=== PATIENT | female | born 1975 | race Caucasian/White ===

== ENCOUNTER 2017-11-07 18:01 | Emergency (ER) | payer SELFPAY ==
[2017-11-07 18:37] LABS: BILIRUBIN,URINE NEGATIVE (NEG); CLARITY,URINE CLEAR; COLOR,URINE YELLOW; GLUCOSE,URINE NEGATIVE (NEG); NITRITE,URINE NEGATIVE (NEG); PROTEIN,URINE NEGATIVE (NEG-TRACE); UROBILINOGEN,URINE 0.2 mg/dL (0.2 mg/dL)
[2017-11-07] MEDS: IPRATRPIUM/ALBUTEROL 0.5/2.5MG 3 ML NEBU. NEB (18:37)
[2017-11-07 18:43] LABS: BACTERIA,URINE FEW /HPF (0-FEW); RBC,URINE OCC /HPF (0-2); SQUAMOUS EPITHELIAL CELL,UR MOD /LPF
[2017-11-07 18:44] LABS: BARBITURATES NEG (NEG); BENZODIAZEPINES POS (NEG); CANNABINOIDS POS (NEG); COCAINE NEG (NEG); METHADONE NEG (NEG); OPIATES NEG (NEG); PHENCYCLIDINE NEG (NEG)
[2017-11-07 18:45] LABS: AMPHETAMINE/METHAMPHETAMINE NEG (NEG); ETHANOL, URINE NEG (NEG)
[2017-11-07 18:47] LABS: ADD MAN DIFF? NO
[2017-11-07] MEDS: ASPIRIN 325 MG TABLET PO (18:48)
[2017-11-07] MEDS: methylPREDNISolone SOD SUCC PF 125 MG/2 ML VIAL. IV (18:48)
[2017-11-07 18:50] LABS: BASO # 0.1 x10^3/uL (0.0-0.2); BASO % 1 % (0-3); EOS # 0.2 x10^3/uL (0.0-0.7); EOS % 3 % (0-3); HEMOGLOBIN 13.6 g/dL (12.0-15.5); LYMPH # 2.5 x10^3/uL (1.0-4.8); LYMPH % 26 % (24-48); MEAN CORPUSCULAR HEMOGLOBIN 33 pg (25-35); MEAN CORPUSCULAR HGB CONC 35 g/dL (31-37); MEAN CORPUSCULAR VOLUME 94 fL (79-100); MONO # 0.5 x10^3/uL (0.0-1.1); MONO % 6 % (0-9); NEUT % 65 % (31-73); PLATELET COUNT 344 x10^3/uL (140-400); RED BLOOD COUNT 4.14 x10^6/uL (3.50-5.40); RED CELL DISTRIBUTION WIDTH 14.1 % (11.5-14.5); WHITE BLOOD COUNT 9.4 x10^3/uL (4.0-11.0)
[2017-11-07 19:02] LABS: ANION GAP 12 (6-14); BLOOD UREA NITROGEN 14 mg/dL (7-20); BUN/CREATININE RATIO 16 (6-20); CALCIUM 8.5 mg/dL (8.5-10.1); CARBON DIOXIDE 22 mmol/L (21-32); CHLORIDE 103 mmol/L (98-107); CREATININE 0.9 mg/dL (0.6-1.0); GLUCOSE 97 mg/dL (70-99); POTASSIUM 3.8 mmol/L (3.5-5.1); SODIUM 137 mmol/L (136-145)
[2017-11-07] MEDS: HYDROcodone/APAP 10/325 1 TAB TABLET PO (19:05)
[2017-11-07 19:08] LABS: ALBUMIN 3.2 g/dL (3.4-5.0); ALBUMIN/GLOBULIN RATIO 0.9 (1.0-1.7); ALK PHOS 102 U/L (46-116); ALT (SGPT) 19 U/L (14-59); AST (SGOT) 22 U/L (15-37); MAGNESIUM 2.1 mg/dL (1.8-2.4); TOTAL BILIRUBIN 0.3 mg/dL (0.2-1.0); TOTAL PROTEIN 6.8 g/dL (6.4-8.2)
[2017-11-07 19:09] LABS: TROPONINI < 0.017 ng/mL (0.000-0.055)
[2017-11-07 19:15] LABS: THYROID STIM HORMONE (TSH) 1.149 uIU/mL (0.358-3.74)
[2017-11-07 19:16] LABS: CREATINE KINASE 43 U/L (26-192)
[2017-11-07 19:16] LABS: NT-PRO BNP 339 pg/mL (0-124)
[2017-11-07 19:18] LABS: CKMB MASS < 0.5 ng/mL (0.0-3.6)
[2017-11-07] MEDS: diazePAM 5 MG TABLET PO (19:55)
== END 2017-11-07 20:26 | disposition home or self-care (01) ==
LOC: ER 18:01
DX: J20.9 Acute bronchitis, unspecified (principal); F17.200 Nicotine dependence, unspecified, uncomplicated; Z98.51 Tubal ligation status
CPT/HCPCS: 36415; 71045; 80053; 80307; 81001; 82553; 83735; 83880; 84443; 84484; 85025; 87086; 93005; 94640; 96374; 99285-25; J2930; J7620

== ENCOUNTER 2017-11-07 23:40 | Emergency (ER) | payer SELFPAY ==
[2017-11-08 02:08] LABS: BASO % 0 % (0-3); EOS % 0 % (0-3); HEMATOCRIT 39.8 % (36.0-47.0); HEMOGLOBIN 13.7 g/dL (12.0-15.5); LYMPH # 0.9 x10^3/uL (1.0-4.8); LYMPH % 9 % (24-48); MEAN CORPUSCULAR HEMOGLOBIN 32 pg (25-35); MEAN CORPUSCULAR HGB CONC 35 g/dL (31-37); MEAN CORPUSCULAR VOLUME 94 fL (79-100); MONO # 0.1 x10^3/uL (0.0-1.1); MONO % 1 % (0-9); NEUT # 9.6 x10^3uL (1.8-7.7); NEUT % 91 % (31-73); PLATELET COUNT 353 x10^3/uL (140-400); RED BLOOD COUNT 4.23 x10^6/uL (3.50-5.40); RED CELL DISTRIBUTION WIDTH 14.1 % (11.5-14.5); WHITE BLOOD COUNT 10.6 x10^3/uL (4.0-11.0)
[2017-11-08 02:12] LABS: ADD MAN DIFF? YES
[2017-11-08 02:17] LABS: ANION GAP 16 (6-14); BLOOD UREA NITROGEN 13 mg/dL (7-20); BUN/CREATININE RATIO 13 (6-20); CALCIUM 8.9 mg/dL (8.5-10.1); CARBON DIOXIDE 19 mmol/L (21-32); CHLORIDE 100 mmol/L (98-107); GFR 60.2; GLUCOSE 140 mg/dL (70-99); NEG OBC SER NEG; POS OBC SER POS; POTASSIUM 3.8 mmol/L (3.5-5.1); PREG TEST PT QUAL NEGATIVE (NEG); SODIUM 135 mmol/L (136-145)
[2017-11-08 02:24] LABS: ALBUMIN 3.4 g/dL (3.4-5.0); ALBUMIN/GLOBULIN RATIO 0.8 (1.0-1.7); ALK PHOS 102 U/L (46-116); ALT (SGPT) 18 U/L (14-59); AST (SGOT) 20 U/L (15-37); LIPASE 72 U/L (73-393); TOTAL BILIRUBIN 0.3 mg/dL (0.2-1.0); TOTAL PROTEIN 7.5 g/dL (6.4-8.2)
[2017-11-08 02:29] LABS: NT-PRO BNP 224 pg/mL (0-124); TROPONINI < 0.017 ng/mL (0.000-0.055)
[2017-11-08] MEDS: KETOROLAC 15 MG/ML VIAL. IV (02:46)
[2017-11-08 03:05] LABS: D-DIMER < 0.27 ug/mlFEU (0.00-0.50)
[2017-11-08 03:13] LABS: BILIRUBIN,URINE NEGATIVE (NEG); CLARITY,URINE CLEAR; COLOR,URINE YELLOW; GLUCOSE,URINE NEGATIVE (NEG); NITRITE,URINE NEGATIVE (NEG); PROTEIN,URINE NEGATIVE (NEG-TRACE); UROBILINOGEN,URINE 0.2 mg/dL (0.2 mg/dL)
[2017-11-08 03:29] LABS: BACTERIA,URINE FEW /HPF (0-FEW); RBC,URINE 0 /HPF (0-2)
[2017-11-08 03:30] LABS: SQUAMOUS EPITHELIAL CELL,UR MOD /LPF; YEAST,URINE PRESENT /HPF
[2017-11-08 04:18] LABS: % BANDS 1 % (0-9); % LYMPHS 8 % (24-48); % MONOS 1 % (0-10); % SEGS 90 % (35-66); PLT ESTIMATE ADEQUATE (ADEQUATE)
[2017-11-08] MEDS ORDERED: MORPHINE SULFATE 4 MG/ML DISP.SYRIN. (04:41)
[2017-11-08] MEDS: MORPHINE SULFATE 4 MG/ML DISP.SYRIN. IV (04:47)
== END 2017-11-08 05:10 | disposition home or self-care (01) ==
LOC: ER 23:40
DX: S70.01XA Contusion of right hip, initial encounter (principal); G89.29 Other chronic pain; R06.02 Shortness of breath; M79.7 Fibromyalgia; R10.84 Generalized abdominal pain; F12.10 Cannabis abuse, uncomplicated; Z98.51 Tubal ligation status; W18.39XA Other fall on same level, initial encounter; Y93.89 Activity, other specified; Y99.8 Other external cause status; Y92.89 Other specified places as the place of occurrence of the external cause
CPT/HCPCS: 36415; 71045; 72220; 73502; 80053; 81001; 83690; 83880; 84484; 84703; 85007; 85025; 85379; 93005; 96374; 96375; 99285-25; J1885; J2270

== ENCOUNTER 2017-11-08 19:12 | Emergency (ER) | payer SELFPAY ==
[2017-11-08] MEDS ORDERED: CONTRAST GIVEN. MC (21:15)
[2017-11-08] MEDS: MORPHINE SULFATE 10 MG/ML VIAL. IV ×2 (21:16→23:24)
[2017-11-08] MEDS: IOHEXOL 300 MG/ML 100ML VIAL. IV (21:21)
[2017-11-08 22:36] LABS: D-DIMER 0.41 ug/mlFEU (0.00-0.50)
[2017-11-08 22:38] LABS: NT-PRO BNP 425 pg/mL (0-124)
[2017-11-08] MEDS: AZITHROMYCIN 250 MG TABLET. PO (23:25)
== END 2017-11-08 23:44 | disposition home or self-care (01) ==
LOC: ER 23:44
DX: J20.9 Acute bronchitis, unspecified (principal); J45.909 Unspecified asthma, uncomplicated; G43.909 Migraine, unspecified, not intractable, without status migrainosus; Z98.51 Tubal ligation status
CPT/HCPCS: 36415; 71260; 83880; 85379; 96374; 96376; 99285-25; J2270; Q0144; Q9967

== ENCOUNTER 2018-01-08 14:12 | Inpatient (IN) | payer SELFPAY ==
[~2018-01-08] VITALS: Ht 154.9 cm; Wt 67.1 kg
[~2018-01-08 14:12] MED LIST: AZIT250T6 PO; CYCL10TA2 PO; DIAZ5TAB PO; GABA-586 PO; NAPR-514 PO; OXYC1TAB7 PO; PRED50TA PO; Pantoprazole PO; VENL75CA PO; VENTOLIN HFA18 GM INH
[2018-01-08] MEDS ORDERED: ONDANSETRON PF 4 MG/2 ML VIAL. IV ONE (15:15)
[2018-01-08] MEDS ORDERED: IV NORMAL SALINE 1000ML BAG 1,000 ML IV ONE (15:15)
[2018-01-08] MEDS ORDERED: fentaNYL PF VIAL 100 MCG/2 ML VIAL IV ONE ×3 (15:15→18:45)
[2018-01-08 15:42] LABS: BASO # 0.2 x10^3/uL (0.0-0.2); BASO % 2 % (0-3); EOS # 0.4 x10^3/uL (0.0-0.7); EOS % 4 % (0-3); HEMATOCRIT 39.7 % (36.0-47.0); HEMOGLOBIN 13.8 g/dL (12.0-15.5); LYMPH # 3.2 x10^3/uL (1.0-4.8); LYMPH % 29 % (24-48); MEAN CORPUSCULAR HEMOGLOBIN 32 pg (25-35); MEAN CORPUSCULAR HGB CONC 35 g/dL (31-37); MEAN CORPUSCULAR VOLUME 92 fL (79-100); MONO # 0.6 x10^3/uL (0.0-1.1); MONO % 5 % (0-9); NEUT # 6.5 x10^3uL (1.8-7.7); NEUT % 60 % (31-73); PLATELET COUNT 452 x10^3/uL (140-400); RED CELL DISTRIBUTION WIDTH 12.8 % (11.5-14.5); WHITE BLOOD COUNT 10.9 x10^3/uL (4.0-11.0)
[2018-01-08] MEDS ORDERED: IOHEXOL 240 MG/ML 50ML VIAL. PO ONE (15:45)
[2018-01-08] MEDS ORDERED: IOHEXOL 300 MG/ML 100ML VIAL. IV ONE (15:45)
[2018-01-08] MEDS ORDERED: CONTRAST GIVEN. MC PRN (15:45)
[2018-01-08 15:51] LABS: CALCIUM 8.8 mg/dL (8.5-10.1); CREATININE 0.7 mg/dL (0.6-1.0); GFR 90.9; POTASSIUM 3.8 mmol/L (3.5-5.1)
[2018-01-08 15:56] LABS: ALBUMIN 3.2 g/dL (3.4-5.0); ALBUMIN/GLOBULIN RATIO 0.8 (1.0-1.7); TOTAL BILIRUBIN 0.3 mg/dL (0.2-1.0); TOTAL PROTEIN 7.2 g/dL (6.4-8.2)
[2018-01-08] MEDS ORDERED: MORPHINE SULFATE 10 MG/ML VIAL. IV ONE (17:30)
--- NOTE | 2018-01-08 17:55 | RAD ---
CT SCAN OF THE ABDOMEN AND PELVIS WITH IV CONTRAST. History: Abdominal pain Comparison: December 24, 2017. Procedure: Contiguous axial images of the abdomen and pelvis were performed after the administration of 75 cc of Omni 300 IV contrast and oral contrast. CT Abdomen with contrast: Findings: Liver: There has been prior colon study. Hypoattenuation adjacent to the gallbladder fossa is likely focal fatty infiltration. Spleen: Unremarkable Pancreas: Unremarkable Adrenal Glands: Unremarkable Kidneys: Unremarkable There is no mass or lymphadenopathy. There is no free air. There is no free fluid. Impression: No acute findings. End Impression CT Pelvis with Contrast: Findings: A few foci of air within the urinary bladder could be from instrumentation. The uterus is retroverted but otherwise appears normal. The ovaries are not well seen and likely small. The appendix is not well seen but appears normal. There is no free fluid. There is no lymphadenopathy. Impression: No acute findings. PQRS Compliance Statement: One or more of the following individualized dose reduction techniques were utilized for this examination: 1. Automated exposure control 2. Adjustment of the mA and/or kV according to patient size 3. Use of iterative reconstruction technique Electronically signed by: Memo Pierce III, MD (01/08/2018 5:51 PM) [facility]
--- NOTE | 2018-01-08 17:58 | PHYS DOC ---
Past Medical History Past Medical History: Fibromyalgia, Seizure Additional Past Medical Histor: Scoliosis,ddd Past Surgical History: Cholecystectomy, Tubal ligation, Other Additional Past Surgical Histo: L knee scope,lithotripsy,thyroid cyst Alcohol Use: None Drug Use: Marijuana Adult General Chief Complaint Chief Complaint: NAUSEA/VOMITING/DIARRHA HPI HPI Patient is a 42 year old female who presents with abdominal pain and nausea that began yesterday morning. The patient states that she had a gallbladder removal done 6 days ago. She states that she did fine until yesterday morning when she woke up with nausea. She has had increasing pain. She states that she is not even able to hold down broth. She denies fever or diarrhea. Review of Systems Review of Systems Constitutional: Denies fever or chills [] Eyes: Denies change in visual acuity, redness, or eye pain [] HENT: Denies nasal congestion or sore throat [] Respiratory: Denies cough or shortness of breath [] Cardiovascular: No additional information not addressed in HPI [] GI: See history of present illness : Denies dysuria or hematuria [] Musculoskeletal: Denies back pain or joint pain [] Integument: Denies rash or skin lesions [] Neurologic: Denies headache, focal weakness or sensory changes [] Endocrine: Denies polyuria or polydipsia [] All other systems were reviewed and found to be within normal limits, except as documented in this note. Current Medications Current Medications Current Medications Medications (Trade) Dose Ordered Sig/Jayleen Start Time Stop Time Status Last Admin Dose Admin Acetaminophen (Tylenol) 650 mg PRN Q4HRS PRN 01/08/18 18:30 01/09/18 18:29 Fentanyl Citrate (Fentanyl 2ml Vial) 75 mcg 1X ONCE 01/08/18 18:45 01/08/18 18:47 DC 01/08/18 19:19 75 MCG Info (CONTRAST GIVEN -- Rx MONITORING) 1 each PRN DAILY PRN 01/08/18 15:45 01/10/18 15:44 Iohexol (Omnipaque 240 Mg/ml) 50 ml 1X ONCE 01/08/18 15:45 01/08/18 15:46 DC 01/08/18 15:45 50 ML Iohexol (Omnipaque 300 Mg/ml) 75 ml 1X ONCE 01/08/18 15:45 01/08/18 15:46 DC 01/08/18 17:12 75 ML Lorazepam (Ativan) 1 mg PRN Q4HRS PRN 01/08/18 18:45 01/08/18 18:47 DC Morphine Sulfate (Morphine Sulfate) 4 mg PRN Q2HR PRN 01/08/18 18:30 01/09/18 18:29 Ondansetron HCl (Zofran) 4 mg PRN Q8HRS PRN 01/08/18 18:30 01/09/18 18:29 Sodium Chloride 1,000 ml @ 125 mls/hr Q8H 01/08/18 18:19 01/09/18 18:18 Allergies Allergies Allergies Coded Allergies Type Severity Reaction Last Updated Verified No Known Drug Allergies 01/01/18 No Physical Exam Physical Exam Constitutional: Well developed, well nourished, no acute distress, non-toxic appearance. [] HENT: Normocephalic, atraumatic, bilateral external ears normal, oropharynx moist, no oral exudates, nose normal. [] Eyes: PERRLA, EOMI, conjunctiva normal, no discharge. [] Neck: Normal range of motion, no tenderness, supple, no stridor. [] Cardiovascular:Heart rate regular rhythm, no murmur [] Lungs & Thorax: Bilateral breath sounds clear to auscultation [] Abdomen: Bowel sounds normal, soft, tenderness to right upper quadrant with palpation, no masses, no pulsatile masses. [] Skin: Warm, dry, no erythema, no rash. [] Neurologic: Alert and oriented X 3, normal motor function, normal sensory function, no focal deficits noted. [] Psychologic: Affect normal, judgement normal, mood normal. [] Current Patient Data Vital Signs Vital Signs Date Time Temp Pulse Resp B/P (MAP) Pulse Ox O2 Delivery O2 Flow Rate FiO2 01/08/18 19:19 18 Room Air 01/08/18 18:18 90 151/89 (109) 96 01/08/18 14:40 97.6 97.6 Lab Values Laboratory Tests Test 01/08/18 15:25 White Blood Count 10.9 x10^3/uL (4.0-11.0) Red Blood Count 4.30 x10^6/uL (3.50-5.40) Hemoglobin 13.8 g/dL (12.0-15.5) Hematocrit 39.7 % (36.0-47.0) Mean Corpuscular Volume 92 fL (79-100) Mean Corpuscular Hemoglobin 32 pg (25-35) Mean Corpuscular Hemoglobin Concent 35 g/dL (31-37) Red Cell Distribution Width 12.8 % (11.5-14.5) Platelet Count 452 x10^3/uL (140-400) H Neutrophils (%) (Auto) 60 % (31-73) Lymphocytes (%) (Auto) 29 % (24-48) Monocytes (%) (Auto) 5 % (0-9) Eosinophils (%) (Auto) 4 % (0-3) H Basophils (%) (Auto) 2 % (0-3) Neutrophils # (Auto) 6.5 x10^3uL (1.8-7.7) Lymphocytes # (Auto) 3.2 x10^3/uL (1.0-4.8) Monocytes # (Auto) 0.6 x10^3/uL (0.0-1.1) Eosinophils # (Auto) 0.4 x10^3/uL (0.0-0.7) Basophils # (Auto) 0.2 x10^3/uL (0.0-0.2) Sodium Level 136 mmol/L (136-145) Potassium Level 3.8 mmol/L (3.5-5.1) Chloride Level 102 mmol/L (98-107) Carbon Dioxide Level 24 mmol/L (21-32) Anion Gap 10 (6-14) Blood Urea Nitrogen 7 mg/dL (7-20) Creatinine 0.7 mg/dL (0.6-1.0) Estimated GFR (Cockcroft-Gault) 90.9 BUN/Creatinine Ratio 10 (6-20) Glucose Level 95 mg/dL (70-99) Lactic Acid Level 1.0 mmol/L (0.4-2.0) Calcium Level 8.8 mg/dL (8.5-10.1) Total Bilirubin 0.3 mg/dL (0.2-1.0) Aspartate Amino Transferase (AST) 25 U/L (15-37) Alanine Aminotransferase (ALT) 20 U/L (14-59) Alkaline Phosphatase 140 U/L (46-116) H Total Protein 7.2 g/dL (6.4-8.2) Albumin 3.2 g/dL (3.4-5.0) L Albumin/Globulin Ratio 0.8 (1.0-1.7) L Amylase Level 64 U/L (25-115) Lipase 87 U/L (73-393) Laboratory Tests 01/08/18 15:25 Laboratory Tests 01/08/18 15:25 EKG EKG [] Radiology/Procedures Radiology/Procedures []PATIENT: TRE ASENCIO RACCOUNT: [id number]#: [id number] : 1975 LOCATION: ER AGE: 42 SEX: F EXAM STATUS: REG ER ORD. PHYSICIAN: ANNEL PALOMARES APRN REASON: increasing abdominal pain, post op cholecystectomy PROCEDURE: CT ABD PELV W/ORAL&IV CONTRAST CT SCAN OF THE ABDOMEN AND PELVIS WITH IV CONTRAST. History: Abdominal pain Comparison: December 24, 2017. Procedure: Contiguous axial images of the abdomen and pelvis were performed after the administration of 75 cc of Omni 300 IV contrast and oral contrast. CT Abdomen with contrast: Findings: Liver: There has been prior colon study. Hypoattenuation adjacent to the gallbladder fossa is likely focal fatty infiltration. Spleen: Unremarkable Pancreas: Unremarkable Adrenal Glands: Unremarkable Kidneys: Unremarkable There is no mass or lymphadenopathy. There is no free air. There is no free fluid. Impression: No acute findings. End Impression CT Pelvis with Contrast: Findings: A few foci of air within the urinary bladder could be from instrumentation. The uterus is retroverted but otherwise appears normal. The ovaries are not well seen and likely small. The appendix is not well seen but appears normal. There is no free fluid. There is no lymphadenopathy. Impression: No acute findings. PQRS Compliance Statement: One or more of the following individualized dose reduction techniques were utilized for this examination: 1. Automated exposure control 2. Adjustment of the mA and/or kV according to patient size 3. Use of iterative reconstruction technique Electronically signed by: Soledad Guzman III, MD (01/08/2018 5:51 PM) [facility] DICTATED and SIGNED BY: SOLEDAD GUZMAN III, MD DATE: 01/08/18 9514 Course & Med Decision Making Course & Med Decision Making Pertinent Labs and Imaging studies reviewed. (See chart for details) []The patient has received 100 mg of fentanyl, 5 mg of morphine, Zofran and Ativan in the emergency department to get her pain under control. Her CT scan was negative for abnormality. We will proceed with an ultrasound for further examination of her right upper quadrant. The patient will be admitted for pain and nausea control. The patient is in agreement with this plan. Dr. Denton has accepted this patient to his service. Dr White was consulted in the care of this patient. Dragon Disclaimer Dragon Disclaimer This electronic medical record was generated, in whole or in part, using a voice recognition dictation system. Departure Departure Impression: Primary Impression: Intractable abdominal pain Additional Impression: Nausea Disposition: ADMITTED INPATIENT Admitting Physician: Bautista Smith Condition: STABLE Referrals: YANCY ARCHULETA MD (PCP) Problem Qualifiers ANNEL PALOMARES APRN Jan 08, 2018 17:58
[2018-01-08] MEDS ORDERED: MORPHINE SULFATE 4 MG/ML VIAL. IV PRN (18:30)
[2018-01-08] MEDS ORDERED: ONDANSETRON PF 4 MG/2 ML VIAL. IV PRN (18:30)
[2018-01-08] MEDS ORDERED: ACETAMINOPHEN 325 MG TABLET. PO PRN (18:30)
--- NOTE | 2018-01-08 20:49 | RAD ---
Indication:RUQ PAIN S/P GB REMOVED TECHNIQUE: Grayscale, color Doppler and spectral waveform is of the abdomen obtained. COMPARISON:None FINDINGS:Limited evaluation of pancreas due to overlying bowel gas. Visualized pancreas is diffusely echogenic suggesting fatty infiltration. IVC is partially visualized. Main portal vein is patent. Liver measures 17 cm in longest dimension. Increased echogenicity and decreased through transmission. No focal liver lesion. Status post cholecystectomy. CBD measures 6 cm in diameter and is within normal limits. Right kidney measures 10 cm in length without hydronephrosis. IMPRESSION: 1. Status post cholecystectomy. 2. Mild hepatic steatosis. Electronically signed by: Chace Rutherford DO (01/08/2018 8:45 PM) [id number]
[2018-01-08 21:05] LABS: BILIRUBIN,URINE NEGATIVE (NEG); CLARITY,URINE CLEAR; COLOR,URINE YELLOW; NITRITE,URINE NEGATIVE (NEG); PH,URINE 6.5; PROTEIN,URINE NEGATIVE (NEG-TRACE); UROBILINOGEN,URINE 0.2 mg/dL (0.2 mg/dL)
[2018-01-08 21:12] LABS: BACTERIA,URINE FEW /HPF (0-FEW); RBC,URINE OCC /HPF (0-2); SQUAMOUS EPITHELIAL CELL,UR MOD /LPF; WBC,URINE OCC /HPF (0-4)
[2018-01-08] MEDS: IV NORMAL SALINE 1000ML BAG 1,000 ML IV SCH (21:18)
[2018-01-08] MEDS ORDERED: DIPHENHYDRAMINE/ZINC ACETATE 2%/0.1% TOPICAL CREAM 28GM TUBE. TP PRN (22:15)
[2018-01-08 23:00] VITALS: BP 115/78
[2018-01-08] MEDS: fentaNYL PF VIAL 100 MCG/2 ML VIAL IV PRN (23:45)
[2018-01-08] MEDS ORDERED: TRAZ300T2 PO (23:53)
[2018-01-09] MEDS: traZODone 100 MG TABLET. PO SCH ×2 (00:59→21:34)
[2018-01-09 03:00] VITALS: BP 111/71
[2018-01-09] MEDS: fentaNYL PF VIAL 100 MCG/2 ML VIAL IV PRN ×2 (04:24→07:12)
[2018-01-09] MEDS: IV NORMAL SALINE 1000ML BAG 1,000 ML IV SCH ×2 (04:32→10:19)
[2018-01-09 05:04] LABS: BASO # 0.1 x10^3/uL (0.0-0.2); BASO % 1 % (0-3); EOS # 0.5 x10^3/uL (0.0-0.7); EOS % 5 % (0-3); HEMATOCRIT 34.3 % (36.0-47.0); HEMOGLOBIN 11.9 g/dL (12.0-15.5); LYMPH # 2.8 x10^3/uL (1.0-4.8); LYMPH % 27 % (24-48); MEAN CORPUSCULAR HEMOGLOBIN 32 pg (25-35); MEAN CORPUSCULAR HGB CONC 35 g/dL (31-37); MEAN CORPUSCULAR VOLUME 92 fL (79-100); MONO # 0.7 x10^3/uL (0.0-1.1); MONO % 7 % (0-9); NEUT # 6.4 x10^3uL (1.8-7.7); NEUT % 61 % (31-73); PLATELET COUNT 388 x10^3/uL (140-400); RED BLOOD COUNT 3.71 x10^6/uL (3.50-5.40); RED CELL DISTRIBUTION WIDTH 12.7 % (11.5-14.5); WHITE BLOOD COUNT 10.4 x10^3/uL (4.0-11.0)
[2018-01-09 05:44] LABS: CALCIUM 7.7 mg/dL (8.5-10.1); CREATININE 0.7 mg/dL (0.6-1.0); GFR 90.9; POTASSIUM 3.5 mmol/L (3.5-5.1)
[2018-01-09 07:00] VITALS: BP 124/83
[2018-01-09] MEDS ORDERED: PANTOPRAZOLE 40 MG TABLET.DR. PO SCH (08:00)
[2018-01-09] MEDS ORDERED: NON FORMULARY ITEM (Albuterol Sulfate (Ventolin Hfa Inhaler) 2 PUFF) INH SCH (08:00)
[2018-01-09] MEDS: VENLAFAXINE XR 37.5 MG CAP.ER.24H. PO SCH (08:44)
[2018-01-09] MEDS: GABAPENTIN 300 MG CAPSULE. PO SCH ×3 (08:44→19:50)
[2018-01-09] MEDS: CYCLOBENZAPRINE 10 MG TABLET. PO SCH ×3 (08:44→19:50)
[2018-01-09] MEDS: oxyCODONE/APAP 5/325 1 TAB TABLET PO PRN ×4 (09:26→21:34)
[2018-01-09] MEDS: ALBUTEROL SULFATE 2.5 MG/3 ML NEBU. NEB SCH ×3 (10:00→18:00)
--- NOTE | 2018-01-09 10:24 | PDOC1 ---
History and Physical Date of Admission Date of Admission DATE: 01/09/18 TIME: 10:23 Identification/Chief Complaint Chief Complaint presented with abdominal pain and nausea that began yousif morning. states that she had a gallbladder removal done 6 days ago, seen in ER, ADMITTED Past Medical History Past Medical History Past Medical History Past Medical History: Fibromyalgia, Seizure Additional Past Medical Histor: Scoliosis,ddd Past Surgical History: Cholecystectomy, Tubal ligation, Other Additional Past Surgical Histo: L knee scope,lithotripsy,thyroid cyst Alcohol Use: None Drug Use: Marijuana FAMILY HX DJD CENTRAL NERVOUS SYSTEM: Seizure, Other Musculoskeletal: low back pain Past Surgical History Past Surgical History: No pertinent history Family History Family History: Hypertension Social History Smoke: No ALCOHOL: none Drugs: None Current Problem List Problem List Problems Medical Problems: (1) Intractable abdominal pain Status: Acute (2) Nausea Status: Acute Current Medications Current Medications Current Medications Sodium Chloride 1,000 ml @ 1,000 mls/hr 1X ONCE IV Last administered on at 15:44; Start 01/08/18 at 15:15; Stop 01/08/18 at 16:14; Status DC Ondansetron HCl (Zofran) 4 mg 1X ONCE IV Last administered on 01/08/18at 15:45 ; Start 01/08/18 at 15:15; Stop 01/08/18 at 15:18; Status DC Fentanyl Citrate (Fentanyl 2ml Vial) 50 mcg 1X ONCE IV Last administered on at 15:47; Start 01/08/18 at 15:15; Stop 01/09/18 at 07:55; Status DC Iohexol (Omnipaque 300 Mg/ml) 75 ml 1X ONCE IV Last administered on 01/08/18at 17:12; Start 01/08/18 at 15:45; Stop 01/08/18 at 15:46; Status DC Iohexol (Omnipaque 240 Mg/ml) 50 ml 1X ONCE PO Last administered on 01/08/18at 15:45; Start 01/08/18 at 15:45; Stop 01/08/18 at 15:46; Status DC Info (CONTRAST GIVEN -- Rx MONITORING) 1 each PRN DAILY PRN MC SEE COMMENTS; Start 01/08/18 at 15:45; Stop 01/10/18 at 15:44 Fentanyl Citrate (Fentanyl 2ml Vial) 50 mcg 1X ONCE IV Last administered on at 16:48; Start 01/08/18 at 17:00; Stop 01/08/18 at 17:01; Status DC Morphine Sulfate (Morphine Sulfate) 5 mg 1X ONCE IV Last administered on at 18:04; Start 01/08/18 at 17:30; Stop 01/08/18 at 17:31; Status DC Lorazepam (Ativan) 1 mg PRN Q4HRS PRN IV ANXIETY / AGITATION; Start 01/08/18 at 17:30 Ondansetron HCl (Zofran) 4 mg PRN Q8HRS PRN IV NAUSEA/VOMITING; Start 01/08/18 at 18:30; Stop 01/09/18 at 18:29 Morphine Sulfate (Morphine Sulfate) 4 mg PRN Q2HR PRN IV PAIN Last administered on 01/08/18at 21:19; Start 01/08/18 at 18:30; Stop 01/09/18 at 07:59 ; Status DC Fentanyl Citrate (Fentanyl 2ml Vial) 50 mcg PRN Q2HR PRN IV PAIN Last administered on 01/09/18at 07:12; Start 01/08/18 at 18:30; Stop 01/09/18 at 07:55 ; Status DC Sodium Chloride 1,000 ml @ 125 mls/hr Q8H IV Last administered on 01/09/18at 04 :32; Start 01/08/18 at 18:19; Stop 01/09/18 at 18:18 Acetaminophen (Tylenol) 650 mg PRN Q4HRS PRN PO FEVER; Start 01/08/18 at 18:30 ; Stop 01/09/18 at 18:29 Fentanyl Citrate (Fentanyl 2ml Vial) 75 mcg 1X ONCE IV Last administered on at 19:19; Start 01/08/18 at 18:45; Stop 01/08/18 at 18:47; Status DC Lorazepam (Ativan) 1 mg PRN Q4HRS PRN IV ANXIETY / AGITATION; Start 01/08/18 at 18:45; Stop 01/08/18 at 18:47; Status DC Zinc Acetate/ Diphenhydramine (Benadryl Topical) 1 ayan PRN Q3HRS PRN TP ITCHING ; Start 01/08/18 at 22:15; Status Cancel Trazodone HCl (Desyrel) 300 mg QHS PO Last administered on 01/09/18at 00:59; Start 01/09/18 at 01:00 Cyclobenzaprine HCl (Flexeril) 10 mg TID PO Last administered on 01/09/18at 08: 44; Start 01/09/18 at 09:00 Oxycodone/ Acetaminophen (Percocet 5/325) 1 tab PRN Q4HRS PRN PO PAIN MODERATE Last administered on 01/09/18at 09:26; Start 01/09/18 at 08:00 Non-Formulary Medication (Albuterol Sulfate (Ventolin Hfa Inhaler)) 2 puff Q4HRS INH ; Start 01/09/18 at 08:00; Status UNV Gabapentin (Neurontin) 300 mg TID PO Last administered on 01/09/18at 08:44; Start 01/09/18 at 09:00 Venlafaxine HCl (Effexor Xr) 75 mg DAILY PO Last administered on 01/09/18at 08: 44; Start 01/09/18 at 09:00 Pantoprazole Sodium (Protonix) 40 mg DAILYAC PO Last administered on 01/09/18at 08:44; Start 01/09/18 at 08:00 Albuterol Sulfate (Ventolin Neb Soln) 2.5 mg Q4HRS W/A NEB ; Start 01/09/18 at 10:00 Active Scripts Active Oxycodone-Acetaminophen 5-325 (Oxycodone Hcl/Acetaminophen) 1 Each Tablet 1 Tab PO PRN Q4HRS PRN 7 Days [Pantoprazole] 40 MG Tablet.dr 40 Mg PO DAILYAC 30 Days Ventolin Hfa Inhaler (Albuterol Sulfate) 18 Gm Hfa.aer.ad 2 Puff INH Q4HRS Reported Trazodone Hcl 300 Mg Tablet 1 Tab PO QHS Valium (Diazepam) 5 Mg Tablet 5 Mg PO PRN Cyclobenzaprine Hcl 10 Mg Tablet 10 Mg PO TID Gabapentin 300 Mg Capsule 300 Mg PO TID Effexor Xr (Venlafaxine Hcl) 75 Mg Cap.er.24h 75 Mg PO DAILY Allergies Allergies: Coded Allergies: No Known Drug Allergies (Unverified , 01/01/18) ROS Review of System Review of Systems Review of Systems Constitutional: Denies fever or chills [] Eyes: Denies change in visual acuity, redness, or eye pain [] HENT: Denies nasal congestion or sore throat [] Respiratory: Denies cough or shortness of breath [] Cardiovascular: No additional information not addressed in HPI [] GI: See history of present illness : Denies dysuria or hematuria [] Musculoskeletal: Denies back pain or joint pain [] Integument: Denies rash or skin lesions [] Neurologic: Denies headache, focal weakness or sensory changes [] Endocrine: Denies polyuria or polydipsia [] 14 PT systems were reviewed and found to be within normal limits, except as documented . Physical Exam Physical Exam Physical Exam Physical Exam Constitutional: Well developed, well nourished, no acute distress, non-toxic appearance. [] HENT: Normocephalic, atraumatic, bilateral external ears normal, oropharynx moist, no oral exudates, nose normal. [] Eyes: PERRLA, EOMI, conjunctiva normal, no discharge. [] Neck: Normal range of motion, no tenderness, supple, no stridor. [] Cardiovascular:Heart rate regular rhythm, no murmur [] Lungs & Thorax: Bilateral breath sounds clear to auscultation [] Abdomen: Bowel sounds normal, soft, tenderness to right upper quadrant with palpation, no masses, no pulsatile masses. [] Skin: Warm, dry, no erythema, no rash. [] Neurologic: Alert and oriented X 3, normal motor function, normal sensory function, no focal deficits noted. [] Psychologic: Affect normal, judgement normal, mood normal. [] General: Oriented X3 Neuro: Cranial nerves 3-12 NL Vitals Vitals Vital Signs Date Time Temp Pulse Resp B/P (MAP) Pulse Ox O2 Delivery O2 Flow Rate FiO2 01/09/18 09:26 18 Nasal Cannula 01/09/18 07:00 97.9 87 124/83 (97) 95 97.9 Labs Labs Laboratory Tests Test 01/08/18 15:25 01/08/18 20:10 01/09/18 04:15 White Blood Count 10.9 x10^3/uL (4.0-11.0) 10.4 x10^3/uL (4.0-11.0) Red Blood Count 4.30 x10^6/uL (3.50-5.40) 3.71 x10^6/uL (3.50-5.40) Hemoglobin 13.8 g/dL (12.0-15.5) 11.9 g/dL (12.0-15.5) Hematocrit 39.7 % (36.0-47.0) 34.3 % (36.0-47.0) Mean Corpuscular Volume 92 fL (79-100) 92 fL (79-100) Mean Corpuscular Hemoglobin 32 pg (25-35) 32 pg (25-35) Mean Corpuscular Hemoglobin Concent 35 g/dL (31-37) 35 g/dL (31-37) Red Cell Distribution Width 12.8 % (11.5-14.5) 12.7 % (11.5-14.5) Platelet Count 452 x10^3/uL (140-400) 388 x10^3/uL (140-400) Neutrophils (%) (Auto) 60 % (31-73) 61 % (31-73) Lymphocytes (%) (Auto) 29 % (24-48) 27 % (24-48) Monocytes (%) (Auto) 5 % (0-9) 7 % (0-9) Eosinophils (%) (Auto) 4 % (0-3) 5 % (0-3) Basophils (%) (Auto) 2 % (0-3) 1 % (0-3) Neutrophils # (Auto) 6.5 x10^3uL (1.8-7.7) 6.4 x10^3uL (1.8-7.7) Lymphocytes # (Auto) 3.2 x10^3/uL (1.0-4.8) 2.8 x10^3/uL (1.0-4.8) Monocytes # (Auto) 0.6 x10^3/uL (0.0-1.1) 0.7 x10^3/uL (0.0-1.1) Eosinophils # (Auto) 0.4 x10^3/uL (0.0-0.7) 0.5 x10^3/uL (0.0-0.7) Basophils # (Auto) 0.2 x10^3/uL (0.0-0.2) 0.1 x10^3/uL (0.0-0.2) Sodium Level 136 mmol/L (136-145) 140 mmol/L (136-145) Potassium Level 3.8 mmol/L (3.5-5.1) 3.5 mmol/L (3.5-5.1) Chloride Level 102 mmol/L (98-107) 107 mmol/L (98-107) Carbon Dioxide Level 24 mmol/L (21-32) 25 mmol/L (21-32) Anion Gap 10 (6-14) 8 (6-14) Blood Urea Nitrogen 7 mg/dL (7-20) 5 mg/dL (7-20) Creatinine 0.7 mg/dL (0.6-1.0) 0.7 mg/dL (0.6-1.0) Estimated GFR (Cockcroft-Gault) 90.9 90.9 BUN/Creatinine Ratio 10 (6-20) Glucose Level 95 mg/dL (70-99) 95 mg/dL (70-99) Lactic Acid Level 1.0 mmol/L (0.4-2.0) Calcium Level 8.8 mg/dL (8.5-10.1) 7.7 mg/dL (8.5-10.1) Total Bilirubin 0.3 mg/dL (0.2-1.0) Aspartate Amino Transf (AST/SGOT) 25 U/L (15-37) Alanine Aminotransferase (ALT/SGPT) 20 U/L (14-59) Alkaline Phosphatase 140 U/L (46-116) Total Protein 7.2 g/dL (6.4-8.2) Albumin 3.2 g/dL (3.4-5.0) Albumin/Globulin Ratio 0.8 (1.0-1.7) Amylase Level 64 U/L (25-115) Lipase 87 U/L (73-393) Urine Collection Type Unknown Urine Color Yellow Urine Clarity Clear Urine pH 6.5 Urine Specific [place] >=1.030 Urine Protein Negative mg/dL (NEG-TRACE) Urine Glucose (UA) Negative mg/dL (NEG) Urine Ketones (Stick) Negative mg/dL (NEG) Urine Blood Negative (NEG) Urine Nitrite Negative (NEG) Urine Bilirubin Negative (NEG) Urine Urobilinogen Dipstick 0.2 mg/dL (0.2 mg/dL) Urine Leukocyte Esterase Negative (NEG) Urine RBC Occ /HPF (0-2) Urine WBC Occ /HPF (0-4) Urine Squamous Epithelial Cells Mod /LPF Urine Bacteria Few /HPF (0-FEW) Urine Mucus Slight /LPF Laboratory Tests Test 01/08/18 15:25 01/08/18 20:10 01/09/18 04:15 White Blood Count 10.9 x10^3/uL (4.0-11.0) 10.4 x10^3/uL (4.0-11.0) Red Blood Count 4.30 x10^6/uL (3.50-5.40) 3.71 x10^6/uL (3.50-5.40) Hemoglobin 13.8 g/dL (12.0-15.5) 11.9 g/dL (12.0-15.5) Hematocrit 39.7 % (36.0-47.0) 34.3 % (36.0-47.0) Mean Corpuscular Volume 92 fL (79-100) 92 fL (79-100) Mean Corpuscular Hemoglobin 32 pg (25-35) 32 pg (25-35) Mean Corpuscular Hemoglobin Concent 35 g/dL (31-37) 35 g/dL (31-37) Red Cell Distribution Width 12.8 % (11.5-14.5) 12.7 % (11.5-14.5) Platelet Count 452 x10^3/uL (140-400) 388 x10^3/uL (140-400) Neutrophils (%) (Auto) 60 % (31-73) 61 % (31-73) Lymphocytes (%) (Auto) 29 % (24-48) 27 % (24-48) Monocytes (%) (Auto) 5 % (0-9) 7 % (0-9) Eosinophils (%) (Auto) 4 % (0-3) 5 % (0-3) Basophils (%) (Auto) 2 % (0-3) 1 % (0-3) Neutrophils # (Auto) 6.5 x10^3uL (1.8-7.7) 6.4 x10^3uL (1.8-7.7) Lymphocytes # (Auto) 3.2 x10^3/uL (1.0-4.8) 2.8 x10^3/uL (1.0-4.8) Monocytes # (Auto) 0.6 x10^3/uL (0.0-1.1) 0.7 x10^3/uL (0.0-1.1) Eosinophils # (Auto) 0.4 x10^3/uL (0.0-0.7) 0.5 x10^3/uL (0.0-0.7) Basophils # (Auto) 0.2 x10^3/uL (0.0-0.2) 0.1 x10^3/uL (0.0-0.2) Sodium Level 136 mmol/L (136-145) 140 mmol/L (136-145) Potassium Level 3.8 mmol/L (3.5-5.1) 3.5 mmol/L (3.5-5.1) Chloride Level 102 mmol/L (98-107) 107 mmol/L (98-107) Carbon Dioxide Level 24 mmol/L (21-32) 25 mmol/L (21-32) Anion Gap 10 (6-14) 8 (6-14) Blood Urea Nitrogen 7 mg/dL (7-20) 5 mg/dL (7-20) Creatinine 0.7 mg/dL (0.6-1.0) 0.7 mg/dL (0.6-1.0) Estimated GFR (Cockcroft-Gault) 90.9 90.9 BUN/Creatinine Ratio 10 (6-20) Glucose Level 95 mg/dL (70-99) 95 mg/dL (70-99) Lactic Acid Level 1.0 mmol/L (0.4-2.0) Calcium Level 8.8 mg/dL (8.5-10.1) 7.7 mg/dL (8.5-10.1) Total Bilirubin 0.3 mg/dL (0.2-1.0) Aspartate Amino Transf (AST/SGOT) 25 U/L (15-37) Alanine Aminotransferase (ALT/SGPT) 20 U/L (14-59) Alkaline Phosphatase 140 U/L (46-116) Total Protein 7.2 g/dL (6.4-8.2) Albumin 3.2 g/dL (3.4-5.0) Albumin/Globulin Ratio 0.8 (1.0-1.7) Amylase Level 64 U/L (25-115) Lipase 87 U/L (73-393) Urine Collection Type Unknown Urine Color Yellow Urine Clarity Clear Urine pH 6.5 Urine Specific [place] >=1.030 Urine Protein Negative mg/dL (NEG-TRACE) Urine Glucose (UA) Negative mg/dL (NEG) Urine Ketones (Stick) Negative mg/dL (NEG) Urine Blood Negative (NEG) Urine Nitrite Negative (NEG) Urine Bilirubin Negative (NEG) Urine Urobilinogen Dipstick 0.2 mg/dL (0.2 mg/dL) Urine Leukocyte Esterase Negative (NEG) Urine RBC Occ /HPF (0-2) Urine WBC Occ /HPF (0-4) Urine Squamous Epithelial Cells Mod /LPF Urine Bacteria Few /HPF (0-FEW) Urine Mucus Slight /LPF Images Images CT SCAN OF THE ABDOMEN AND PELVIS WITH IV CONTRAST. History: Abdominal pain Comparison: December 24, 2017. Procedure: Contiguous axial images of the abdomen and pelvis were performed after the administration of 75 cc of Omni 300 IV contrast and oral contrast. CT Abdomen with contrast: Findings: Liver: There has been prior colon study. Hypoattenuation adjacent to the gallbladder fossa is likely focal fatty infiltration. Spleen: Unremarkable Pancreas: Unremarkable Adrenal Glands: Unremarkable Kidneys: Unremarkable There is no mass or lymphadenopathy. There is no free air. There is no free fluid. Impression: No acute findings. End Impression CT Pelvis with Contrast: Findings: A few foci of air within the urinary bladder could be from instrumentation. The uterus is retroverted but otherwise appears normal. The ovaries are not well seen and likely small. The appendix is not well seen but appears normal. There is no free fluid. There is no lymphadenopathy. Impression: No acute findings. PQRS Compliance Statement: One or more of the following individualized dose reduction techniques were utilized for this examination: 1. Automated exposure control 2. Adjustment of the mA and/or kV according to patient size 3. Use of iterative reconstruction technique Electronically signed by: Memo Pierce III, MD (01/08/2018 5:51 PM) [facility] VTE Prophylaxis Ordered VTE Prophylaxis Devices: Yes VTE Pharmacological Prophylaxi: No Assessment/Plan Assessment/Plan Impression: abdominal pain post lap/ oriana 7 days [employer] : Nausea PLAN SURGERY CONSULT IV FLUID SUPPORT NPO TREVON FERREIRA MD Jan 09, 2018 10:24
[2018-01-09 11:00] VITALS: BP 126/77
[2018-01-09] MEDS ORDERED: ONDANSETRON PF 4 MG/2 ML VIAL. IV PRN (12:00)
--- NOTE | 2018-01-09 14:12 | PDOC ---
Subjective: Subjective: Please see GI consult from 12/25/17. Admitted 12/24 reporting RUQ radiating to back, worse w/ movement and associated w/ nausea. +cannabinoids Abd US and CT unrevealing. HIDA w/ GB EF 77%. Tried empiric PPI, unable to try TCA due to drug interactions. With h/o back problems and fibromyalgia, pain thought non-GI in nature. Tried Lidocaine patch. T and L-spine MRIs w/ mild DDD L5-S1. Underwent cholecystectomy on 01/01. Normal IOC. Op note mentions chronic adhesions to GB. Path w/ chronic cholecystitis. Discharged 01/02. No previous EGD. H/o polyps on colonoscopy >5 years ago (says performed for diarrhea @ [facility]). Back to ER yesterday (01/08) w/ nausea and pain, re-admitted. HIDA w/o bile leak. Gastroparesis suggested as a possible diagnosis. She tells me was eating, drinking, and feeling well taking Percocet TID-QID ( script provided on discharge) but she ran out. Then had the same RUQ/ epigastric pain radiating to right flank, associated w/ vomiting x 1. She usually takes hydrocodone 10mg TID-QID for chronic back pain (and "all over" pain). She's also out of those and has an appt at [facility] and [facility] on Sunday for a refill but Percocet actually works better. She does have a h/o vomiting about twice monthly - typically bilious, not undigested food. Denies reflux and heartburn but feels bloated all the time. Has chronic diarrhea (typically watery stools after eating) that is unchanged. Her mom has collagenous colitis and she wonders if she does too. Denies hematemesis, hematochezia, and melena. She feels she could manage the pain at home w/ Percocet and follow-up as an outpt - uninsured, financial concerns. Objective: Vital Signs: Vital Signs Date Time Temp Pulse Resp B/P (MAP) Pulse Ox O2 Delivery O2 Flow Rate FiO2 01/09/18 13:30 18 Room Air 01/09/18 11:00 97.7 95 126/77 (93) 94 97.7 Labs: Laboratory Tests Test 01/08/18 15:25 01/08/18 20:10 01/09/18 04:15 White Blood Count 10.9 x10^3/uL 10.4 x10^3/uL Red Blood Count 4.30 x10^6/uL 3.71 x10^6/uL Hemoglobin 13.8 g/dL 11.9 g/dL Hematocrit 39.7 % 34.3 % Mean Corpuscular Volume 92 fL 92 fL Mean Corpuscular Hemoglobin 32 pg 32 pg Mean Corpuscular Hemoglobin Concent 35 g/dL 35 g/dL Red Cell Distribution Width 12.8 % 12.7 % Platelet Count 452 x10^3/uL 388 x10^3/uL Neutrophils (%) (Auto) 60 % 61 % Lymphocytes (%) (Auto) 29 % 27 % Monocytes (%) (Auto) 5 % 7 % Eosinophils (%) (Auto) 4 % 5 % Basophils (%) (Auto) 2 % 1 % Neutrophils # (Auto) 6.5 x10^3uL 6.4 x10^3uL Lymphocytes # (Auto) 3.2 x10^3/uL 2.8 x10^3/uL Monocytes # (Auto) 0.6 x10^3/uL 0.7 x10^3/uL Eosinophils # (Auto) 0.4 x10^3/uL 0.5 x10^3/uL Basophils # (Auto) 0.2 x10^3/uL 0.1 x10^3/uL Sodium Level 136 mmol/L 140 mmol/L Potassium Level 3.8 mmol/L 3.5 mmol/L Chloride Level 102 mmol/L 107 mmol/L Carbon Dioxide Level 24 mmol/L 25 mmol/L Anion Gap 10 8 Blood Urea Nitrogen 7 mg/dL 5 mg/dL Creatinine 0.7 mg/dL 0.7 mg/dL Estimated GFR (Cockcroft-Gault) 90.9 90.9 BUN/Creatinine Ratio 10 Glucose Level 95 mg/dL 95 mg/dL Lactic Acid Level 1.0 mmol/L Calcium Level 8.8 mg/dL 7.7 mg/dL Total Bilirubin 0.3 mg/dL Aspartate Amino Transf (AST/SGOT) 25 U/L Alanine Aminotransferase (ALT/SGPT) 20 U/L Alkaline Phosphatase 140 U/L Total Protein 7.2 g/dL Albumin 3.2 g/dL Albumin/Globulin Ratio 0.8 Amylase Level 64 U/L Lipase 87 U/L Urine Collection Type Unknown Urine Color Yellow Urine Clarity Clear Urine pH 6.5 Urine Specific [place] >=1.030 Urine Protein Negative mg/dL Urine Glucose (UA) Negative mg/dL Urine Ketones (Stick) Negative mg/dL Urine Blood Negative Urine Nitrite Negative Urine Bilirubin Negative Urine Urobilinogen Dipstick 0.2 mg/dL Urine Leukocyte Esterase Negative Urine RBC Occ /HPF Urine WBC Occ /HPF Urine Squamous Epithelial Cells Mod /LPF Urine Bacteria Few /HPF Urine Mucus Slight /LPF Imaging: RUQ US 01/08 IMPRESSION: 1. Status post cholecystectomy. 2. Mild hepatic steatosis. CT A/P 01/08 Impression: No acute findings. PE: GEN: NAD HEENT: Atraumatic, PERRL LUNGS: CTAB HEART: RRR ABD: epigastric and RUQ discomfort - ?post-op, tender along right ribs anteriorly and posteriorly EXTREMITY: No edema SKIN: No rashes, no jaundice NEURO/PSYCH: A & O 3 A/P: Recurrent abd pain s/p cholecystectomy Chronic pain issues (back, fibromyalgia...) Intermittent vomiting Chronic diarrhea - stable CRC screen, h/o polyps - @[facility] >5 years ago -- Chronic pain, out of usual and post-op meds at home. HIDA neg for bile leak. Defer pain management to primary - seems would benefit from pain management - worst pain still seems to be along right ribs. + for marijuana last time - should stop, could contribute to vomiting. ADAT, can change to PO PPI while here. Can retry lidocaine patch. Okay to DC on PPI and gastroparesis diet per GI, follow-up as outpt for recurrent symptoms. SUNDAY DONIS Jan 09, 2018 14:12
--- NOTE | 2018-01-09 14:42 | RAD ---
HEPATOBILIARY SCAN WITHOUT EJECTION FRACTION 01/09/2018 2:37 PM History: Abdominal pain. Status post lap cholecystectomy Procedure: Serial static images are obtained of the liver and biliary system in the frontal projection following IV administration of 5.5 mCi of Technetium 99m Choletec. Findings: There is hepatic clearance of tracer from the blood pool. There is homogeneous distribution throughout the liver. The biliary tree and common bile duct are visualized. Accumulation of radiotracer in the duodenum and subsequently the more distal small bowel is noted. No abnormal accumulation of radiotracer suggestive of a bile leak is identified. IMPRESSION: No scintigraphic evidence of bile leak is identified Electronically signed by: Hector Brooks MD (01/09/2018 2:38 PM) [id number]
[2018-01-09 15:00] VITALS: BP 154/106
--- NOTE | 2018-01-09 15:34 | PDOC2 ---
CONSULT Date of Consult Date of Consult DATE: 01/09/18 TIME: 15:29 Reason for Consult Reason for Consult: RUQ pain Referring Physician Referring Physician: Cat Identification/Chief Complaint Chief Complaint RUQ pain, nausea Source Source: Chart review, Patient History of Present Illness Reason for Visit: 42 yo F with persistent RUQ pain, nausea. Pt was previously here for this a week ago. Underwent laparoscopic cholecystectomy for chronic cholecystitis. Pt notes current pt is similar to previous pain. Persistent intermittent N/v. Past Medical History CENTRAL NERVOUS SYSTEM: Seizure, Other Musculoskeletal: low back pain Past Surgical History Past Surgical History: No pertinent history Family History Family History: Hypertension Social History No ALCOHOL: none Drugs: None Current Problem List Problem List Problems Medical Problems: (1) Intractable abdominal pain Status: Acute (2) Nausea Status: Acute Current Medications Current Medications Current Medications Sodium Chloride 1,000 ml @ 1,000 mls/hr 1X ONCE IV Last administered on at 15:44; Start 01/08/18 at 15:15; Stop 01/08/18 at 16:14; Status DC Ondansetron HCl (Zofran) 4 mg 1X ONCE IV Last administered on 01/08/18at 15:45 ; Start 01/08/18 at 15:15; Stop 01/08/18 at 15:18; Status DC Fentanyl Citrate (Fentanyl 2ml Vial) 50 mcg 1X ONCE IV Last administered on at 15:47; Start 01/08/18 at 15:15; Stop 01/09/18 at 07:55; Status DC Iohexol (Omnipaque 300 Mg/ml) 75 ml 1X ONCE IV Last administered on 01/08/18at 17:12; Start 01/08/18 at 15:45; Stop 01/08/18 at 15:46; Status DC Iohexol (Omnipaque 240 Mg/ml) 50 ml 1X ONCE PO Last administered on 01/08/18at 15:45; Start 01/08/18 at 15:45; Stop 01/08/18 at 15:46; Status DC Info (CONTRAST GIVEN -- Rx MONITORING) 1 each PRN DAILY PRN MC SEE COMMENTS; Start 01/08/18 at 15:45; Stop 01/10/18 at 15:44 Fentanyl Citrate (Fentanyl 2ml Vial) 50 mcg 1X ONCE IV Last administered on at 16:48; Start 01/08/18 at 17:00; Stop 01/08/18 at 17:01; Status DC Morphine Sulfate (Morphine Sulfate) 5 mg 1X ONCE IV Last administered on at 18:04; Start 01/08/18 at 17:30; Stop 01/08/18 at 17:31; Status DC Lorazepam (Ativan) 1 mg PRN Q4HRS PRN IV ANXIETY / AGITATION; Start 01/08/18 at 17:30 Ondansetron HCl (Zofran) 4 mg PRN Q8HRS PRN IV NAUSEA/VOMITING; Start 01/08/18 at 18:30; Stop 01/09/18 at 11:53; Status DC Morphine Sulfate (Morphine Sulfate) 4 mg PRN Q2HR PRN IV PAIN Last administered on 01/08/18at 21:19; Start 01/08/18 at 18:30; Stop 01/09/18 at 07:59 ; Status DC Fentanyl Citrate (Fentanyl 2ml Vial) 50 mcg PRN Q2HR PRN IV PAIN Last administered on 01/09/18at 07:12; Start 01/08/18 at 18:30; Stop 01/09/18 at 07:55 ; Status DC Sodium Chloride 1,000 ml @ 125 mls/hr Q8H IV Last administered on 01/09/18at 04 :32; Start 01/08/18 at 18:19; Stop 01/09/18 at 18:18 Acetaminophen (Tylenol) 650 mg PRN Q4HRS PRN PO FEVER; Start 01/08/18 at 18:30 ; Stop 01/09/18 at 18:29 Fentanyl Citrate (Fentanyl 2ml Vial) 75 mcg 1X ONCE IV Last administered on at 19:19; Start 01/08/18 at 18:45; Stop 01/08/18 at 18:47; Status DC Lorazepam (Ativan) 1 mg PRN Q4HRS PRN IV ANXIETY / AGITATION; Start 01/08/18 at 18:45; Stop 01/08/18 at 18:47; Status DC Zinc Acetate/ Diphenhydramine (Benadryl Topical) 1 ayan PRN Q3HRS PRN TP ITCHING ; Start 01/08/18 at 22:15; Status Cancel Trazodone HCl (Desyrel) 300 mg QHS PO Last administered on 01/09/18at 00:59; Start 01/09/18 at 01:00 Cyclobenzaprine HCl (Flexeril) 10 mg TID PO Last administered on 01/09/18at 08: 44; Start 01/09/18 at 09:00 Oxycodone/ Acetaminophen (Percocet 5/325) 1 tab PRN Q4HRS PRN PO PAIN MODERATE Last administered on 01/09/18at 13:30; Start 01/09/18 at 08:00 Non-Formulary Medication (Albuterol Sulfate (Ventolin Hfa Inhaler)) 2 puff Q4HRS INH ; Start 01/09/18 at 08:00; Status UNV Gabapentin (Neurontin) 300 mg TID PO Last administered on 01/09/18at 08:44; Start 01/09/18 at 09:00 Venlafaxine HCl (Effexor Xr) 75 mg DAILY PO Last administered on 01/09/18at 08: 44; Start 01/09/18 at 09:00 Pantoprazole Sodium (Protonix) 40 mg DAILYAC PO Last administered on 01/09/18at 08:44; Start 01/09/18 at 08:00; Stop 01/09/18 at 14:35; Status DC Albuterol Sulfate (Ventolin Neb Soln) 2.5 mg Q4HRS W/A NEB ; Start 01/09/18 at 10:00 Ondansetron HCl (Zofran) 4 mg PRN Q6HRS PRN IV NAUSEA/VOMITING; Start 01/09/18 at 12:00 Pantoprazole Sodium (PROTONIX VIAL for IV PUSH) 40 mg DAILYAC IVP ; Start at 07:30; Stop 01/10/18 at 07:30; Status DC Pantoprazole Sodium (Protonix) 40 mg DAILYAC PO ; Start 01/10/18 at 07:30 Lidocaine (Lidoderm) 1 patch DAILY TD ; Start 01/10/18 at 09:00; Status UNV Miscellaneous (Lidoderm Patch Removal) 1 ea QHS MC ; Start 01/09/18 at 21:00; Status UNV Active Scripts Active Oxycodone-Acetaminophen 5-325 (Oxycodone Hcl/Acetaminophen) 1 Each Tablet 1 Tab PO PRN Q4HRS PRN 7 Days [Pantoprazole] 40 MG Tablet.dr 40 Mg PO DAILYAC 30 Days Ventolin Hfa Inhaler (Albuterol Sulfate) 18 Gm Hfa.aer.ad 2 Puff INH Q4HRS Reported Trazodone Hcl 300 Mg Tablet 1 Tab PO QHS Valium (Diazepam) 5 Mg Tablet 5 Mg PO PRN Cyclobenzaprine Hcl 10 Mg Tablet 10 Mg PO TID Gabapentin 300 Mg Capsule 300 Mg PO TID Effexor Xr (Venlafaxine Hcl) 75 Mg Cap.er.24h 75 Mg PO DAILY Allergies Allergies: Coded Allergies: No Known Drug Allergies (Unverified , 01/01/18) ROS Gastrointestinal: Yes Nausea, Yes Vomiting, Yes Abdominal Pain Physical Exam General: Alert, Oriented X3, Cooperative, mild distress HEENT: Atraumatic Lungs: Normal air movement Abdomen: Soft, Other (mild TTP RUQ) Extremities: No clubbing, No cyanosis Skin: No rashes, No breakdown Psych/Mental Status: Mental status NL, Mood NL Vitals VITALS Vital Signs Date Time Temp Pulse Resp B/P (MAP) Pulse Ox O2 Delivery O2 Flow Rate FiO2 01/09/18 15:06 94 Room Air 01/09/18 13:30 18 01/09/18 11:00 97.7 95 126/77 (93) 97.7 Labs Labs Laboratory Tests Test 01/08/18 15:25 01/08/18 20:10 01/09/18 04:15 White Blood Count 10.9 x10^3/uL (4.0-11.0) 10.4 x10^3/uL (4.0-11.0) Red Blood Count 4.30 x10^6/uL (3.50-5.40) 3.71 x10^6/uL (3.50-5.40) Hemoglobin 13.8 g/dL (12.0-15.5) 11.9 g/dL (12.0-15.5) Hematocrit 39.7 % (36.0-47.0) 34.3 % (36.0-47.0) Mean Corpuscular Volume 92 fL (79-100) 92 fL (79-100) Mean Corpuscular Hemoglobin 32 pg (25-35) 32 pg (25-35) Mean Corpuscular Hemoglobin Concent 35 g/dL (31-37) 35 g/dL (31-37) Red Cell Distribution Width 12.8 % (11.5-14.5) 12.7 % (11.5-14.5) Platelet Count 452 x10^3/uL (140-400) 388 x10^3/uL (140-400) Neutrophils (%) (Auto) 60 % (31-73) 61 % (31-73) Lymphocytes (%) (Auto) 29 % (24-48) 27 % (24-48) Monocytes (%) (Auto) 5 % (0-9) 7 % (0-9) Eosinophils (%) (Auto) 4 % (0-3) 5 % (0-3) Basophils (%) (Auto) 2 % (0-3) 1 % (0-3) Neutrophils # (Auto) 6.5 x10^3uL (1.8-7.7) 6.4 x10^3uL (1.8-7.7) Lymphocytes # (Auto) 3.2 x10^3/uL (1.0-4.8) 2.8 x10^3/uL (1.0-4.8) Monocytes # (Auto) 0.6 x10^3/uL (0.0-1.1) 0.7 x10^3/uL (0.0-1.1) Eosinophils # (Auto) 0.4 x10^3/uL (0.0-0.7) 0.5 x10^3/uL (0.0-0.7) Basophils # (Auto) 0.2 x10^3/uL (0.0-0.2) 0.1 x10^3/uL (0.0-0.2) Sodium Level 136 mmol/L (136-145) 140 mmol/L (136-145) Potassium Level 3.8 mmol/L (3.5-5.1) 3.5 mmol/L (3.5-5.1) Chloride Level 102 mmol/L (98-107) 107 mmol/L (98-107) Carbon Dioxide Level 24 mmol/L (21-32) 25 mmol/L (21-32) Anion Gap 10 (6-14) 8 (6-14) Blood Urea Nitrogen 7 mg/dL (7-20) 5 mg/dL (7-20) Creatinine 0.7 mg/dL (0.6-1.0) 0.7 mg/dL (0.6-1.0) Estimated GFR (Cockcroft-Gault) 90.9 90.9 BUN/Creatinine Ratio 10 (6-20) Glucose Level 95 mg/dL (70-99) 95 mg/dL (70-99) Lactic Acid Level 1.0 mmol/L (0.4-2.0) Calcium Level 8.8 mg/dL (8.5-10.1) 7.7 mg/dL (8.5-10.1) Total Bilirubin 0.3 mg/dL (0.2-1.0) Aspartate Amino Transf (AST/SGOT) 25 U/L (15-37) Alanine Aminotransferase (ALT/SGPT) 20 U/L (14-59) Alkaline Phosphatase 140 U/L (46-116) Total Protein 7.2 g/dL (6.4-8.2) Albumin 3.2 g/dL (3.4-5.0) Albumin/Globulin Ratio 0.8 (1.0-1.7) Amylase Level 64 U/L (25-115) Lipase 87 U/L (73-393) Urine Collection Type Unknown Urine Color Yellow Urine Clarity Clear Urine pH 6.5 Urine Specific [place] >=1.030 Urine Protein Negative mg/dL (NEG-TRACE) Urine Glucose (UA) Negative mg/dL (NEG) Urine Ketones (Stick) Negative mg/dL (NEG) Urine Blood Negative (NEG) Urine Nitrite Negative (NEG) Urine Bilirubin Negative (NEG) Urine Urobilinogen Dipstick 0.2 mg/dL (0.2 mg/dL) Urine Leukocyte Esterase Negative (NEG) Urine RBC Occ /HPF (0-2) Urine WBC Occ /HPF (0-4) Urine Squamous Epithelial Cells Mod /LPF Urine Bacteria Few /HPF (0-FEW) Urine Mucus Slight /LPF Laboratory Tests Test 01/08/18 20:10 01/09/18 04:15 Urine Collection Type Unknown Urine Color Yellow Urine Clarity Clear Urine pH 6.5 Urine Specific [place] >=1.030 Urine Protein Negative mg/dL (NEG-TRACE) Urine Glucose (UA) Negative mg/dL (NEG) Urine Ketones (Stick) Negative mg/dL (NEG) Urine Blood Negative (NEG) Urine Nitrite Negative (NEG) Urine Bilirubin Negative (NEG) Urine Urobilinogen Dipstick 0.2 mg/dL (0.2 mg/dL) Urine Leukocyte Esterase Negative (NEG) Urine RBC Occ /HPF (0-2) Urine WBC Occ /HPF (0-4) Urine Squamous Epithelial Cells Mod /LPF Urine Bacteria Few /HPF (0-FEW) Urine Mucus Slight /LPF White Blood Count 10.4 x10^3/uL (4.0-11.0) Red Blood Count 3.71 x10^6/uL (3.50-5.40) Hemoglobin 11.9 g/dL (12.0-15.5) Hematocrit 34.3 % (36.0-47.0) Mean Corpuscular Volume 92 fL (79-100) Mean Corpuscular Hemoglobin 32 pg (25-35) Mean Corpuscular Hemoglobin Concent 35 g/dL (31-37) Red Cell Distribution Width 12.7 % (11.5-14.5) Platelet Count 388 x10^3/uL (140-400) Neutrophils (%) (Auto) 61 % (31-73) Lymphocytes (%) (Auto) 27 % (24-48) Monocytes (%) (Auto) 7 % (0-9) Eosinophils (%) (Auto) 5 % (0-3) Basophils (%) (Auto) 1 % (0-3) Neutrophils # (Auto) 6.4 x10^3uL (1.8-7.7) Lymphocytes # (Auto) 2.8 x10^3/uL (1.0-4.8) Monocytes # (Auto) 0.7 x10^3/uL (0.0-1.1) Eosinophils # (Auto) 0.5 x10^3/uL (0.0-0.7) Basophils # (Auto) 0.1 x10^3/uL (0.0-0.2) Sodium Level 140 mmol/L (136-145) Potassium Level 3.5 mmol/L (3.5-5.1) Chloride Level 107 mmol/L (98-107) Carbon Dioxide Level 25 mmol/L (21-32) Anion Gap 8 (6-14) Blood Urea Nitrogen 5 mg/dL (7-20) Creatinine 0.7 mg/dL (0.6-1.0) Estimated GFR (Cockcroft-Gault) 90.9 Glucose Level 95 mg/dL (70-99) Calcium Level 7.7 mg/dL (8.5-10.1) Images Images US and CT unrevealing. PIPPDA obtained to evaluate for bile leak which was negative. Assessment/Plan Assessment/Plan abd pain no obvious surgical cause of pain, without obvious complicating features after cholecystectomy. Agree with continued GI w/u. Gastroparesis certainly would be possible. Thanks for consult! SUSI FOSTER MD Jan 09, 2018 15:34
[2018-01-09] MEDS: LIDOCAINE (700MG/PATCH) PATCH. TD SCH (16:16)
[2018-01-09 19:23] VITALS: BP 133/95
[2018-01-09] MEDS ORDERED: ALBUTEROL SULFATE 2.5 MG/3 ML NEBU. NEB PRN (20:00)
[2018-01-09] MEDS ORDERED: PATCH REMOVAL. MC SCH (21:00)
[2018-01-09 23:44] VITALS: BP 123/74
[2018-01-10 03:12] VITALS: BP 139/84
[2018-01-10] MEDS: oxyCODONE/APAP 5/325 1 TAB TABLET PO PRN ×2 (07:18→11:32)
[2018-01-10 07:23] VITALS: BP 141/93
[2018-01-10] MEDS ORDERED: PANTOPRAZOLE 40 MG TABLET.DR. PO SCH (07:30)
[2018-01-10] MEDS ORDERED: PANTOPRAZOLE IV PUSH 40 MG VIAL. IVP SCH (07:30)
--- NOTE | 2018-01-10 08:47 | PDOC ---
SURGICAL PROGRESS NOTE Subjective RUQ and back pain no n/v Vital Signs Vital Signs Date Time Temp Pulse Resp B/P (MAP) Pulse Ox O2 Delivery O2 Flow Rate FiO2 01/10/18 07:23 98.0 92 16 141/93 (109) 97 Room Air 98.0 I&O Intake and Output 01/10/18 07:00 Intake Total 1300 ml Balance 1300 ml Intake Oral 1300 ml # Voids 5 General: Alert, Oriented X3, Cooperative, No acute distress Abdomen: Soft, Other (TTP RUQ) Labs Laboratory Tests Test 01/08/18 15:25 01/08/18 20:10 01/09/18 04:15 White Blood Count 10.9 x10^3/uL (4.0-11.0) 10.4 x10^3/uL (4.0-11.0) Red Blood Count 4.30 x10^6/uL (3.50-5.40) 3.71 x10^6/uL (3.50-5.40) Hemoglobin 13.8 g/dL (12.0-15.5) 11.9 g/dL (12.0-15.5) Hematocrit 39.7 % (36.0-47.0) 34.3 % (36.0-47.0) Mean Corpuscular Volume 92 fL (79-100) 92 fL (79-100) Mean Corpuscular Hemoglobin 32 pg (25-35) 32 pg (25-35) Mean Corpuscular Hemoglobin Concent 35 g/dL (31-37) 35 g/dL (31-37) Red Cell Distribution Width 12.8 % (11.5-14.5) 12.7 % (11.5-14.5) Platelet Count 452 x10^3/uL (140-400) 388 x10^3/uL (140-400) Neutrophils (%) (Auto) 60 % (31-73) 61 % (31-73) Lymphocytes (%) (Auto) 29 % (24-48) 27 % (24-48) Monocytes (%) (Auto) 5 % (0-9) 7 % (0-9) Eosinophils (%) (Auto) 4 % (0-3) 5 % (0-3) Basophils (%) (Auto) 2 % (0-3) 1 % (0-3) Neutrophils # (Auto) 6.5 x10^3uL (1.8-7.7) 6.4 x10^3uL (1.8-7.7) Lymphocytes # (Auto) 3.2 x10^3/uL (1.0-4.8) 2.8 x10^3/uL (1.0-4.8) Monocytes # (Auto) 0.6 x10^3/uL (0.0-1.1) 0.7 x10^3/uL (0.0-1.1) Eosinophils # (Auto) 0.4 x10^3/uL (0.0-0.7) 0.5 x10^3/uL (0.0-0.7) Basophils # (Auto) 0.2 x10^3/uL (0.0-0.2) 0.1 x10^3/uL (0.0-0.2) Sodium Level 136 mmol/L (136-145) 140 mmol/L (136-145) Potassium Level 3.8 mmol/L (3.5-5.1) 3.5 mmol/L (3.5-5.1) Chloride Level 102 mmol/L (98-107) 107 mmol/L (98-107) Carbon Dioxide Level 24 mmol/L (21-32) 25 mmol/L (21-32) Anion Gap 10 (6-14) 8 (6-14) Blood Urea Nitrogen 7 mg/dL (7-20) 5 mg/dL (7-20) Creatinine 0.7 mg/dL (0.6-1.0) 0.7 mg/dL (0.6-1.0) Estimated GFR (Cockcroft-Gault) 90.9 90.9 BUN/Creatinine Ratio 10 (6-20) Glucose Level 95 mg/dL (70-99) 95 mg/dL (70-99) Lactic Acid Level 1.0 mmol/L (0.4-2.0) Calcium Level 8.8 mg/dL (8.5-10.1) 7.7 mg/dL (8.5-10.1) Total Bilirubin 0.3 mg/dL (0.2-1.0) Aspartate Amino Transf (AST/SGOT) 25 U/L (15-37) Alanine Aminotransferase (ALT/SGPT) 20 U/L (14-59) Alkaline Phosphatase 140 U/L (46-116) Total Protein 7.2 g/dL (6.4-8.2) Albumin 3.2 g/dL (3.4-5.0) Albumin/Globulin Ratio 0.8 (1.0-1.7) Amylase Level 64 U/L (25-115) Lipase 87 U/L (73-393) Urine Collection Type Unknown Urine Color Yellow Urine Clarity Clear Urine pH 6.5 Urine Specific [place] >=1.030 Urine Protein Negative mg/dL (NEG-TRACE) Urine Glucose (UA) Negative mg/dL (NEG) Urine Ketones (Stick) Negative mg/dL (NEG) Urine Blood Negative (NEG) Urine Nitrite Negative (NEG) Urine Bilirubin Negative (NEG) Urine Urobilinogen Dipstick 0.2 mg/dL (0.2 mg/dL) Urine Leukocyte Esterase Negative (NEG) Urine RBC Occ /HPF (0-2) Urine WBC Occ /HPF (0-4) Urine Squamous Epithelial Cells Mod /LPF Urine Bacteria Few /HPF (0-FEW) Urine Mucus Slight /LPF Problem List Problems Medical Problems: (1) Intractable abdominal pain Status: Acute (2) Nausea Status: Acute Assessment/Plan no surgical findings pain management GI following FLORENTIN BOTELLO APRN Jan 10, 2018 08:47
[2018-01-10] MEDS: CYCLOBENZAPRINE 10 MG TABLET. PO SCH (08:48)
[2018-01-10] MEDS: GABAPENTIN 300 MG CAPSULE. PO SCH (08:48)
[2018-01-10] MEDS: VENLAFAXINE XR 37.5 MG CAP.ER.24H. PO SCH (08:48)
[2018-01-10] MEDS: LIDOCAINE (700MG/PATCH) PATCH. TD SCH (08:48)
[2018-01-10 11:12] VITALS: BP 128/85
--- NOTE | 2018-01-10 11:57 | PDOC ---
Subjective: Subjective: Asks to go home w/ Percocet Rx. Points to right ribs and flank when asked where pain was most bothersome. Tolerating regular diet w/o n/v or increase in pain. Stooling normally for her. Lidocaine "doesn't penetrate" enough. Objective: Objective: D/w RN - decline lidocaine patch, getting Percocet. Ativan also helpful for pain. Vital Signs: Vital Signs Date Time Temp Pulse Resp B/P (MAP) Pulse Ox O2 Delivery O2 Flow Rate FiO2 01/10/18 11:32 18 97 Room Air 01/10/18 11:12 98.3 80 128/85 (99) 98.3 PE: GEN: NAD LUNGS: CTAB HEART: RRR ABD: epigastric and RUQ tenderness is better, still uncomfortable along right ribs anteriorly and posteriorly NEURO/PSYCH: A & O 3 A/P: Chronic pain -- Pain mostly in right ribs and flank. She does have some vague epigastric discomfort and report intermittent vomiting at home. Can pursue GES or EGD as outpt which is her preference. In interim can take PPI and follow gastroparesis diet. Pain control per primary. SUNDAY DONIS Jan 10, 2018 11:57
--- NOTE | 2018-01-10 13:29 | PDOC ---
PROGRESS NOTES History of Present Illness History of Present Illness Assessment/Plan Assessment/Plan Impression: nonsurgical abdominal pain post lap/ oriana 7 days DESIGN LEAD : Nausea PLAN SURGERY CONSULT noted IV FLUID SUPPORT adat Vitals Vitals Vital Signs Date Time Temp Pulse Resp B/P (MAP) Pulse Ox O2 Delivery O2 Flow Rate FiO2 01/10/18 11:32 18 97 Room Air 01/10/18 11:12 98.3 80 128/85 (99) 98.3 Physical Exam General: Alert, Oriented X3, Cooperative, No acute distress Heart: Regular rate Lungs: Clear Abdomen: Normal bowel sounds, Soft, No hepatosplenomegaly, Other (TTP RUQ) Extremities: No clubbing, No cyanosis, No edema Skin: No rashes, No breakdown Assessment and Plan Assessmemt and Plan Problems Medical Problems: (1) Intractable abdominal pain Status: Acute (2) Nausea Status: Acute Comment Review of Relevant I have reviewed the following items nacho (where applicable) has been applied. Labs Laboratory Tests Test 01/08/18 15:25 01/08/18 20:10 01/09/18 04:15 White Blood Count 10.9 x10^3/uL (4.0-11.0) 10.4 x10^3/uL (4.0-11.0) Red Blood Count 4.30 x10^6/uL (3.50-5.40) 3.71 x10^6/uL (3.50-5.40) Hemoglobin 13.8 g/dL (12.0-15.5) 11.9 g/dL (12.0-15.5) Hematocrit 39.7 % (36.0-47.0) 34.3 % (36.0-47.0) Mean Corpuscular Volume 92 fL (79-100) 92 fL (79-100) Mean Corpuscular Hemoglobin 32 pg (25-35) 32 pg (25-35) Mean Corpuscular Hemoglobin Concent 35 g/dL (31-37) 35 g/dL (31-37) Red Cell Distribution Width 12.8 % (11.5-14.5) 12.7 % (11.5-14.5) Platelet Count 452 x10^3/uL (140-400) 388 x10^3/uL (140-400) Neutrophils (%) (Auto) 60 % (31-73) 61 % (31-73) Lymphocytes (%) (Auto) 29 % (24-48) 27 % (24-48) Monocytes (%) (Auto) 5 % (0-9) 7 % (0-9) Eosinophils (%) (Auto) 4 % (0-3) 5 % (0-3) Basophils (%) (Auto) 2 % (0-3) 1 % (0-3) Neutrophils # (Auto) 6.5 x10^3uL (1.8-7.7) 6.4 x10^3uL (1.8-7.7) Lymphocytes # (Auto) 3.2 x10^3/uL (1.0-4.8) 2.8 x10^3/uL (1.0-4.8) Monocytes # (Auto) 0.6 x10^3/uL (0.0-1.1) 0.7 x10^3/uL (0.0-1.1) Eosinophils # (Auto) 0.4 x10^3/uL (0.0-0.7) 0.5 x10^3/uL (0.0-0.7) Basophils # (Auto) 0.2 x10^3/uL (0.0-0.2) 0.1 x10^3/uL (0.0-0.2) Sodium Level 136 mmol/L (136-145) 140 mmol/L (136-145) Potassium Level 3.8 mmol/L (3.5-5.1) 3.5 mmol/L (3.5-5.1) Chloride Level 102 mmol/L (98-107) 107 mmol/L (98-107) Carbon Dioxide Level 24 mmol/L (21-32) 25 mmol/L (21-32) Anion Gap 10 (6-14) 8 (6-14) Blood Urea Nitrogen 7 mg/dL (7-20) 5 mg/dL (7-20) Creatinine 0.7 mg/dL (0.6-1.0) 0.7 mg/dL (0.6-1.0) Estimated GFR (Cockcroft-Gault) 90.9 90.9 BUN/Creatinine Ratio 10 (6-20) Glucose Level 95 mg/dL (70-99) 95 mg/dL (70-99) Lactic Acid Level 1.0 mmol/L (0.4-2.0) Calcium Level 8.8 mg/dL (8.5-10.1) 7.7 mg/dL (8.5-10.1) Total Bilirubin 0.3 mg/dL (0.2-1.0) Aspartate Amino Transf (AST/SGOT) 25 U/L (15-37) Alanine Aminotransferase (ALT/SGPT) 20 U/L (14-59) Alkaline Phosphatase 140 U/L (46-116) Total Protein 7.2 g/dL (6.4-8.2) Albumin 3.2 g/dL (3.4-5.0) Albumin/Globulin Ratio 0.8 (1.0-1.7) Amylase Level 64 U/L (25-115) Lipase 87 U/L (73-393) Urine Collection Type Unknown Urine Color Yellow Urine Clarity Clear Urine pH 6.5 Urine Specific [place] >=1.030 Urine Protein Negative mg/dL (NEG-TRACE) Urine Glucose (UA) Negative mg/dL (NEG) Urine Ketones (Stick) Negative mg/dL (NEG) Urine Blood Negative (NEG) Urine Nitrite Negative (NEG) Urine Bilirubin Negative (NEG) Urine Urobilinogen Dipstick 0.2 mg/dL (0.2 mg/dL) Urine Leukocyte Esterase Negative (NEG) Urine RBC Occ /HPF (0-2) Urine WBC Occ /HPF (0-4) Urine Squamous Epithelial Cells Mod /LPF Urine Bacteria Few /HPF (0-FEW) Urine Mucus Slight /LPF Medications Current Medications Sodium Chloride 1,000 ml @ 1,000 mls/hr 1X ONCE IV Last administered on at 15:44; Start 01/08/18 at 15:15; Stop 01/08/18 at 16:14; Status DC Ondansetron HCl (Zofran) 4 mg 1X ONCE IV Last administered on 01/08/18at 15:45 ; Start 01/08/18 at 15:15; Stop 01/08/18 at 15:18; Status DC Fentanyl Citrate (Fentanyl 2ml Vial) 50 mcg 1X ONCE IV Last administered on at 15:47; Start 01/08/18 at 15:15; Stop 01/09/18 at 07:55; Status DC Iohexol (Omnipaque 300 Mg/ml) 75 ml 1X ONCE IV Last administered on 01/08/18at 17:12; Start 01/08/18 at 15:45; Stop 01/08/18 at 15:46; Status DC Iohexol (Omnipaque 240 Mg/ml) 50 ml 1X ONCE PO Last administered on 01/08/18at 15:45; Start 01/08/18 at 15:45; Stop 01/08/18 at 15:46; Status DC Info (CONTRAST GIVEN -- Rx MONITORING) 1 each PRN DAILY PRN MC SEE COMMENTS; Start 01/08/18 at 15:45; Stop 01/10/18 at 15:44 Fentanyl Citrate (Fentanyl 2ml Vial) 50 mcg 1X ONCE IV Last administered on at 16:48; Start 01/08/18 at 17:00; Stop 01/08/18 at 17:01; Status DC Morphine Sulfate (Morphine Sulfate) 5 mg 1X ONCE IV Last administered on at 18:04; Start 01/08/18 at 17:30; Stop 01/08/18 at 17:31; Status DC Lorazepam (Ativan) 1 mg PRN Q4HRS PRN IV ANXIETY / AGITATION Last administered on 01/10/18at 09:13; Start 01/08/18 at 17:30 Ondansetron HCl (Zofran) 4 mg PRN Q8HRS PRN IV NAUSEA/VOMITING; Start 01/08/18 at 18:30; Stop 01/09/18 at 11:53; Status DC Morphine Sulfate (Morphine Sulfate) 4 mg PRN Q2HR PRN IV PAIN Last administered on 01/08/18at 21:19; Start 01/08/18 at 18:30; Stop 01/09/18 at 07:59 ; Status DC Fentanyl Citrate (Fentanyl 2ml Vial) 50 mcg PRN Q2HR PRN IV PAIN Last administered on 01/09/18at 07:12; Start 01/08/18 at 18:30; Stop 01/09/18 at 07:55 ; Status DC Sodium Chloride 1,000 ml @ 125 mls/hr Q8H IV Last administered on 01/09/18at 04 :32; Start 01/08/18 at 18:19; Stop 01/09/18 at 18:18; Status DC Acetaminophen (Tylenol) 650 mg PRN Q4HRS PRN PO FEVER; Start 01/08/18 at 18:30 ; Stop 01/09/18 at 18:29; Status DC Fentanyl Citrate (Fentanyl 2ml Vial) 75 mcg 1X ONCE IV Last administered on at 19:19; Start 01/08/18 at 18:45; Stop 01/08/18 at 18:47; Status DC Lorazepam (Ativan) 1 mg PRN Q4HRS PRN IV ANXIETY / AGITATION; Start 01/08/18 at 18:45; Stop 01/08/18 at 18:47; Status DC Zinc Acetate/ Diphenhydramine (Benadryl Topical) 1 ayan PRN Q3HRS PRN TP ITCHING ; Start 01/08/18 at 22:15; Status Cancel Trazodone HCl (Desyrel) 300 mg QHS PO Last administered on 01/09/18at 21:34; Start 01/09/18 at 01:00 Cyclobenzaprine HCl (Flexeril) 10 mg TID PO Last administered on 01/10/18at 08: 48; Start 01/09/18 at 09:00 Oxycodone/ Acetaminophen (Percocet 5/325) 1 tab PRN Q4HRS PRN PO PAIN MODERATE Last administered on 01/10/18at 11:32; Start 01/09/18 at 08:00 Non-Formulary Medication (Albuterol Sulfate (Ventolin Hfa Inhaler)) 2 puff Q4HRS INH ; Start 01/09/18 at 08:00; Status UNV Gabapentin (Neurontin) 300 mg TID PO Last administered on 01/10/18at 08:48; Start 01/09/18 at 09:00 Venlafaxine HCl (Effexor Xr) 75 mg DAILY PO Last administered on 01/10/18at 08: 48; Start 01/09/18 at 09:00 Pantoprazole Sodium (Protonix) 40 mg DAILYAC PO Last administered on 01/09/18at 08:44; Start 01/09/18 at 08:00; Stop 01/09/18 at 14:35; Status DC Albuterol Sulfate (Ventolin Neb Soln) 2.5 mg Q4HRS W/A NEB ; Start 01/09/18 at 10:00; Stop 01/09/18 at 19:50; Status DC Ondansetron HCl (Zofran) 4 mg PRN Q6HRS PRN IV NAUSEA/VOMITING; Start 01/09/18 at 12:00 Pantoprazole Sodium (PROTONIX VIAL for IV PUSH) 40 mg DAILYAC IVP ; Start at 07:30; Stop 01/10/18 at 07:30; Status DC Pantoprazole Sodium (Protonix) 40 mg DAILYAC PO Last administered on 01/10/18at 08:48; Start 01/10/18 at 07:30 Lidocaine (Lidoderm) 1 patch DAILY TD Last administered on 01/09/18at 16:16; Start 01/09/18 at 15:30 Miscellaneous (Lidoderm Patch Removal) 1 ea QHS MC ; Start 01/09/18 at 21:00 Albuterol Sulfate (Ventolin Neb Soln) 2.5 mg PRN Q4HRS PRN NEB SHORTNESS OF BREATH; Start 01/09/18 at 20:00 Active Scripts Active Oxycodone-Acetaminophen 5-325 (Oxycodone Hcl/Acetaminophen) 1 Each Tablet 1 Tab PO PRN Q4HRS PRN 7 Days [Pantoprazole] 40 MG Tablet.dr 40 Mg PO DAILYAC 30 Days Ventolin Hfa Inhaler (Albuterol Sulfate) 18 Gm Hfa.aer.ad 2 Puff INH Q4HRS Reported Trazodone Hcl 300 Mg Tablet 1 Tab PO QHS Valium (Diazepam) 5 Mg Tablet 5 Mg PO PRN Cyclobenzaprine Hcl 10 Mg Tablet 10 Mg PO TID Gabapentin 300 Mg Capsule 300 Mg PO TID Effexor Xr (Venlafaxine Hcl) 75 Mg Cap.er.24h 75 Mg PO DAILY Vitals/I & O Vital Sign - Last 24 Hours 01/09/18 01/09/18 01/09/18 01/09/18 13:30 15:00 15:06 17:42 Temp 97.5 97.5 Pulse 98 Resp 18 20 19 B/P (MAP) 154/106 (122) Pulse Ox 100 94 94 O2 Delivery Room Air Room Air Room Air Room Air 01/09/18 01/09/18 01/09/18 01/09/18 19:23 20:00 20:00 21:34 Temp 97.6 97.6 Pulse 99 Resp 18 B/P (MAP) 133/95 (108) Pulse Ox 97 O2 Delivery Room Air Room Air Room Air Room Air 01/09/18 01/10/18 01/10/18 01/10/18 23:44 03:12 07:18 07:23 Temp 98.1 98.2 98.0 98.1 98.2 98.0 Pulse 93 86 92 Resp 18 18 16 B/P (MAP) 123/74 (90) 139/84 (102) 141/93 (109) Pulse Ox 93 97 97 O2 Delivery Room Air Room Air Room Air Room Air 01/10/18 01/10/18 01/10/18 01/10/18 08:00 08:18 11:12 11:32 Temp 98.3 98.3 Pulse 80 Resp 18 18 18 B/P (MAP) 128/85 (99) Pulse Ox 97 97 97 O2 Delivery Room Air Room Air Room Air Room Air Intake and Output 01/09/18 01/09/18 01/10/18 15:00 23:00 07:00 Intake Total 1100 ml 200 ml Balance 1100 ml 200 ml TREVON FERREIRA MD Jan 10, 2018 13:29
--- NOTE | 2018-01-10 13:52 | PDOC3 ---
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 PLAN SURGERY CONSULT noted adat Vitals Vitals Vital Signs Date Time Temp Pulse Resp B/P (MAP) Pulse Ox O2 Delivery O2 Flow Rate FiO2 01/10/18 11:32 18 97 Room Air 01/10/18 11:12 98.3 80 128/85 (99) 98.3 Physical Exam General: Alert, Oriented X3, Cooperative, No acute distress Heart: Regular rate Lungs: Clear Abdomen: Normal bowel sounds, Soft, No hepatosplenomegaly, Other (TTP mild RUQ ) Extremities: No clubbing, No cyanosis, No edema Skin: No rashes, No breakdown FINAL DIAGNOSIS Problems Medical Problems: (1) Intractable abdominal pain Status: Acute (2) Nausea Status: Acute Brief Hospital Course Ms. Garcia is a 42 old [sex] who presented with [ ] CONDITION AT DISCHARGE: Improved Discharge Medications Current Medications Sodium Chloride 1,000 ml @ 1,000 mls/hr 1X ONCE IV Last administered on at 15:44; Start 01/08/18 at 15:15; Stop 01/08/18 at 16:14; Status DC Ondansetron HCl (Zofran) 4 mg 1X ONCE IV Last administered on 01/08/18at 15:45 ; Start 01/08/18 at 15:15; Stop 01/08/18 at 15:18; Status DC Fentanyl Citrate (Fentanyl 2ml Vial) 50 mcg 1X ONCE IV Last administered on at 15:47; Start 01/08/18 at 15:15; Stop 01/09/18 at 07:55; Status DC Iohexol (Omnipaque 300 Mg/ml) 75 ml 1X ONCE IV Last administered on 01/08/18at 17:12; Start 01/08/18 at 15:45; Stop 01/08/18 at 15:46; Status DC Iohexol (Omnipaque 240 Mg/ml) 50 ml 1X ONCE PO Last administered on 01/08/18at 15:45; Start 01/08/18 at 15:45; Stop 01/08/18 at 15:46; Status DC Info (CONTRAST GIVEN -- Rx MONITORING) 1 each PRN DAILY PRN MC SEE COMMENTS; Start 01/08/18 at 15:45; Stop 01/10/18 at 15:44 Fentanyl Citrate (Fentanyl 2ml Vial) 50 mcg 1X ONCE IV Last administered on at 16:48; Start 01/08/18 at 17:00; Stop 01/08/18 at 17:01; Status DC Morphine Sulfate (Morphine Sulfate) 5 mg 1X ONCE IV Last administered on at 18:04; Start 01/08/18 at 17:30; Stop 01/08/18 at 17:31; Status DC Lorazepam (Ativan) 1 mg PRN Q4HRS PRN IV ANXIETY / AGITATION Last administered on 01/10/18at 09:13; Start 01/08/18 at 17:30 Ondansetron HCl (Zofran) 4 mg PRN Q8HRS PRN IV NAUSEA/VOMITING; Start 01/08/18 at 18:30; Stop 01/09/18 at 11:53; Status DC Morphine Sulfate (Morphine Sulfate) 4 mg PRN Q2HR PRN IV PAIN Last administered on 01/08/18at 21:19; Start 01/08/18 at 18:30; Stop 01/09/18 at 07:59 ; Status DC Fentanyl Citrate (Fentanyl 2ml Vial) 50 mcg PRN Q2HR PRN IV PAIN Last administered on 01/09/18at 07:12; Start 01/08/18 at 18:30; Stop 01/09/18 at 07:55 ; Status DC Sodium Chloride 1,000 ml @ 125 mls/hr Q8H IV Last administered on 01/09/18at 04 :32; Start 01/08/18 at 18:19; Stop 01/09/18 at 18:18; Status DC Acetaminophen (Tylenol) 650 mg PRN Q4HRS PRN PO FEVER; Start 01/08/18 at 18:30 ; Stop 01/09/18 at 18:29; Status DC Fentanyl Citrate (Fentanyl 2ml Vial) 75 mcg 1X ONCE IV Last administered on at 19:19; Start 01/08/18 at 18:45; Stop 01/08/18 at 18:47; Status DC Lorazepam (Ativan) 1 mg PRN Q4HRS PRN IV ANXIETY / AGITATION; Start 01/08/18 at 18:45; Stop 01/08/18 at 18:47; Status DC Zinc Acetate/ Diphenhydramine (Benadryl Topical) 1 ayan PRN Q3HRS PRN TP ITCHING ; Start 01/08/18 at 22:15; Status Cancel Trazodone HCl (Desyrel) 300 mg QHS PO Last administered on 01/09/18at 21:34; Start 01/09/18 at 01:00 Cyclobenzaprine HCl (Flexeril) 10 mg TID PO Last administered on 01/10/18at 08: 48; Start 01/09/18 at 09:00 Oxycodone/ Acetaminophen (Percocet 5/325) 1 tab PRN Q4HRS PRN PO PAIN MODERATE Last administered on 01/10/18at 11:32; Start 01/09/18 at 08:00 Non-Formulary Medication (Albuterol Sulfate (Ventolin Hfa Inhaler)) 2 puff Q4HRS INH ; Start 01/09/18 at 08:00; Status UNV Gabapentin (Neurontin) 300 mg TID PO Last administered on 01/10/18at 08:48; Start 01/09/18 at 09:00 Venlafaxine HCl (Effexor Xr) 75 mg DAILY PO Last administered on 01/10/18at 08: 48; Start 01/09/18 at 09:00 Pantoprazole Sodium (Protonix) 40 mg DAILYAC PO Last administered on 01/09/18at 08:44; Start 01/09/18 at 08:00; Stop 01/09/18 at 14:35; Status DC Albuterol Sulfate (Ventolin Neb Soln) 2.5 mg Q4HRS W/A NEB ; Start 01/09/18 at 10:00; Stop 01/09/18 at 19:50; Status DC Ondansetron HCl (Zofran) 4 mg PRN Q6HRS PRN IV NAUSEA/VOMITING; Start 01/09/18 at 12:00 Pantoprazole Sodium (PROTONIX VIAL for IV PUSH) 40 mg DAILYAC IVP ; Start at 07:30; Stop 01/10/18 at 07:30; Status DC Pantoprazole Sodium (Protonix) 40 mg DAILYAC PO Last administered on 01/10/18at 08:48; Start 01/10/18 at 07:30 Lidocaine (Lidoderm) 1 patch DAILY TD Last administered on 01/09/18at 16:16; Start 01/09/18 at 15:30 Miscellaneous (Lidoderm Patch Removal) 1 ea QHS MC ; Start 01/09/18 at 21:00 Albuterol Sulfate (Ventolin Neb Soln) 2.5 mg PRN Q4HRS PRN NEB SHORTNESS OF BREATH; Start 01/09/18 at 20:00 Active Scripts Active Oxycodone-Acetaminophen 5-325 (Oxycodone Hcl/Acetaminophen) 1 Each Tablet 1 Tab PO PRN Q4HRS PRN 7 Days [Pantoprazole] 40 MG Tablet.dr 40 Mg PO DAILYAC 30 Days Ventolin Hfa Inhaler (Albuterol Sulfate) 18 Gm Hfa.aer.ad 2 Puff INH Q4HRS Reported Trazodone Hcl 300 Mg Tablet 1 Tab PO QHS Valium (Diazepam) 5 Mg Tablet 5 Mg PO PRN Cyclobenzaprine Hcl 10 Mg Tablet 10 Mg PO TID Gabapentin 300 Mg Capsule 300 Mg PO TID Effexor Xr (Venlafaxine Hcl) 75 Mg Cap.er.24h 75 Mg PO DAILY Vital Signs Vital Signs Date Time Temp Pulse Resp B/P (MAP) Pulse Ox O2 Delivery O2 Flow Rate FiO2 01/10/18 11:32 18 97 Room Air 01/10/18 11:12 98.3 80 128/85 (99) 98.3 Labs Laboratory Tests Test 01/08/18 15:25 01/08/18 20:10 01/09/18 04:15 White Blood Count 10.9 x10^3/uL (4.0-11.0) 10.4 x10^3/uL (4.0-11.0) Red Blood Count 4.30 x10^6/uL (3.50-5.40) 3.71 x10^6/uL (3.50-5.40) Hemoglobin 13.8 g/dL (12.0-15.5) 11.9 g/dL (12.0-15.5) Hematocrit 39.7 % (36.0-47.0) 34.3 % (36.0-47.0) Mean Corpuscular Volume 92 fL (79-100) 92 fL (79-100) Mean Corpuscular Hemoglobin 32 pg (25-35) 32 pg (25-35) Mean Corpuscular Hemoglobin Concent 35 g/dL (31-37) 35 g/dL (31-37) Red Cell Distribution Width 12.8 % (11.5-14.5) 12.7 % (11.5-14.5) Platelet Count 452 x10^3/uL (140-400) 388 x10^3/uL (140-400) Neutrophils (%) (Auto) 60 % (31-73) 61 % (31-73) Lymphocytes (%) (Auto) 29 % (24-48) 27 % (24-48) Monocytes (%) (Auto) 5 % (0-9) 7 % (0-9) Eosinophils (%) (Auto) 4 % (0-3) 5 % (0-3) Basophils (%) (Auto) 2 % (0-3) 1 % (0-3) Neutrophils # (Auto) 6.5 x10^3uL (1.8-7.7) 6.4 x10^3uL (1.8-7.7) Lymphocytes # (Auto) 3.2 x10^3/uL (1.0-4.8) 2.8 x10^3/uL (1.0-4.8) Monocytes # (Auto) 0.6 x10^3/uL (0.0-1.1) 0.7 x10^3/uL (0.0-1.1) Eosinophils # (Auto) 0.4 x10^3/uL (0.0-0.7) 0.5 x10^3/uL (0.0-0.7) Basophils # (Auto) 0.2 x10^3/uL (0.0-0.2) 0.1 x10^3/uL (0.0-0.2) Sodium Level 136 mmol/L (136-145) 140 mmol/L (136-145) Potassium Level 3.8 mmol/L (3.5-5.1) 3.5 mmol/L (3.5-5.1) Chloride Level 102 mmol/L (98-107) 107 mmol/L (98-107) Carbon Dioxide Level 24 mmol/L (21-32) 25 mmol/L (21-32) Anion Gap 10 (6-14) 8 (6-14) Blood Urea Nitrogen 7 mg/dL (7-20) 5 mg/dL (7-20) Creatinine 0.7 mg/dL (0.6-1.0) 0.7 mg/dL (0.6-1.0) Estimated GFR (Cockcroft-Gault) 90.9 90.9 BUN/Creatinine Ratio 10 (6-20) Glucose Level 95 mg/dL (70-99) 95 mg/dL (70-99) Lactic Acid Level 1.0 mmol/L (0.4-2.0) Calcium Level 8.8 mg/dL (8.5-10.1) 7.7 mg/dL (8.5-10.1) Total Bilirubin 0.3 mg/dL (0.2-1.0) Aspartate Amino Transf (AST/SGOT) 25 U/L (15-37) Alanine Aminotransferase (ALT/SGPT) 20 U/L (14-59) Alkaline Phosphatase 140 U/L (46-116) Total Protein 7.2 g/dL (6.4-8.2) Albumin 3.2 g/dL (3.4-5.0) Albumin/Globulin Ratio 0.8 (1.0-1.7) Amylase Level 64 U/L (25-115) Lipase 87 U/L (73-393) Urine Collection Type Unknown Urine Color Yellow Urine Clarity Clear Urine pH 6.5 Urine Specific [place] >=1.030 Urine Protein Negative mg/dL (NEG-TRACE) Urine Glucose (UA) Negative mg/dL (NEG) Urine Ketones (Stick) Negative mg/dL (NEG) Urine Blood Negative (NEG) Urine Nitrite Negative (NEG) Urine Bilirubin Negative (NEG) Urine Urobilinogen Dipstick 0.2 mg/dL (0.2 mg/dL) Urine Leukocyte Esterase Negative (NEG) Urine RBC Occ /HPF (0-2) Urine WBC Occ /HPF (0-4) Urine Squamous Epithelial Cells Mod /LPF Urine Bacteria Few /HPF (0-FEW) Urine Mucus Slight /LPF Allergies Allergies Coded Allergies Type Severity Reaction Last Updated Verified No Known Drug Allergies 01/01/18 No Disposition/Orders: D/C to Home TREVON FERREIRA MD Jan 10, 2018 13:52
--- NOTE | 2018-01-10 13:53 | DISCH ---
DISCHARGE INSTRUCTIONS Condition on Discharge Condition on Discharge: Stable Activity After Discharge Activity Instructions for Disc: Activity as tolerated Bathing Instructions: Shower-keep dressing dry, No Tub Bath until see Lifting Instructions after Dis: No heavy lifting, No pulling or pushing Exercise Instruction after Dis: Walk 10 min, 3 x per day, Progress as tolerated Driving Instructions after Dis: No driving for 2 weeks, Other, see below Weight Bearing Status after Di: No restrictions Diet after Discharge Diet after Discharge: Regular Diet Texture: No Mixed Consistencies Liquid Texture: Thin Liquid Swallowing Supervision: None needed Wound Incision Care Wound/Incision Care: No wound care needed Contacting the DRMonique after DC Call your doctor for: If your condition worsens Treatment/Equipment after DC Adaptive Equipment Issued: None TREVON FERREIRA MD Jan 10, 2018 13:53
[2018-01-10 15:00] VITALS: BP 144/98
== END 2018-01-10 14:45 | disposition home or self-care (01) | DRG 392 ==
LOC: ER 14:12 → 6 SOUTH 19:40
PROVIDERS: ADMIT Family Medicine; ATTEND Family Medicine
DX: K31.84 Gastroparesis (principal); G89.29 Other chronic pain; K52.9 Noninfective gastroenteritis and colitis, unspecified; K76.0 Fatty (change of) liver, not elsewhere classified; K81.1 Chronic cholecystitis; M41.9 Scoliosis, unspecified; M51.37 Other intervertebral disc degeneration, lumbosacral region; F12.90 Cannabis use, unspecified, uncomplicated; M19.90 Unspecified osteoarthritis, unspecified site; M54.5 Low back pain; M79.7 Fibromyalgia; Z82.49 Family history of ischemic heart disease and other diseases of the circulatory system; Z90.49 Acquired absence of other specified parts of digestive tract; Z98.51 Tubal ligation status
CPT/HCPCS: 36415; 74177; 76705; 78226; 80048; 80053; 81001; 82150; 83605; 83690; 85025; 94760; 96361; 96374; 96375; 96376; A9537; J2060; J2270; J2405; J3010; J7030; Q9966; Q9967; 99285-25

== ENCOUNTER 2018-02-18 14:03 | Emergency (ER) | payer SELFPAY ==
[~2018-02-18] VITALS: Ht 154.9 cm; Wt 68.0 kg
[~2018-02-18 14:03] MED LIST changes: +TRAZ300T2 PO
--- NOTE | 2018-02-18 14:29 | PHYS DOC ---
Past Medical History Past Medical History: Fibromyalgia, Seizure Additional Past Medical Histor: Scoliosis,ddd Past Surgical History: Cholecystectomy, Tubal ligation, Other Additional Past Surgical Histo: L knee scope,lithotripsy,thyroid cyst Alcohol Use: None Drug Use: Marijuana Adult General Chief Complaint Chief Complaint: ABDOMINAL PAIN HPI HPI Patient is a 42 year old female history of cholecystectomy approximately one month ago and recent diagnosis of colitis one week ago presents to the ED complaining of diffuse abdominal pain 2 weeks. Patient has a history of abdominal pain. Patient states one week ago she was seen at [facility] and diagnosed with colitis. States she took Cipro outpatient but states that the abdominal pain is worsening. Describes the pain as sharp. Rates the pain as 8/10. Associated symptoms include nausea and diarrhea. Denies blood in stool, chest pain, shortness of breath, nausea/vomiting, dizziness, weakness , headache or vision changes or fever.. Review of Systems Review of Systems Constitutional: Denies fever or chills [] Eyes: Denies change in visual acuity, redness, or eye pain [] HENT: Denies nasal congestion or sore throat [] Respiratory: Denies cough or shortness of breath [] Cardiovascular: No additional information not addressed in HPI [] GI: Complains of abdominal pain, nausea and diarrhea. Denies vomiting, bloody stools. : Denies dysuria or hematuria [] Musculoskeletal: Denies back pain or joint pain [] Integument: Denies rash or skin lesions [] Neurologic: Denies headache, focal weakness or sensory changes [] All other systems were reviewed and found to be within normal limits, except as documented in this note. Current Medications Current Medications Current Medications Medications (Trade) Dose Ordered Sig/Jayleen Start Time Stop Time Status Last Admin Dose Admin Info (CONTRAST GIVEN -- Rx MONITORING) 1 each PRN DAILY PRN 02/18/18 14:45 02/18/18 17:43 DC Iohexol (Omnipaque 300 Mg/ml) 75 ml 1X ONCE 02/18/18 14:45 02/18/18 14:46 DC 02/18/18 14:51 75 ML Ketorolac Tromethamine (Toradol 30mg Vial) 30 mg 1X ONCE 02/18/18 17:30 02/18/18 17:31 DC 02/18/18 17:34 30 MG Morphine Sulfate (Morphine Sulfate) 2 mg 1X ONCE 02/18/18 15:30 02/18/18 15:31 DC 02/18/18 15:42 2 MG Ondansetron HCl (Zofran) 4 mg 1X ONCE 02/18/18 14:30 02/18/18 14:31 DC 02/18/18 14:43 4 MG Allergies Allergies Allergies Coded Allergies Type Severity Reaction Last Updated Verified No Known Drug Allergies 01/01/18 No Physical Exam Physical Exam Constitutional: Well developed, well nourished, no acute distress, non-toxic appearance. [] HENT: Normocephalic, atraumatic, oropharynx moist Eyes: PERRLA, EOMI, conjunctiva normal, no discharge. [] Neck: Normal range of motion, no tenderness, supple, no stridor. [] Cardiovascular:Heart rate regular rhythm, no murmur [] Lungs & Thorax: Bilateral breath sounds clear to auscultation [] Abdomen: Bowel sounds normal, soft, mild diffuse lower abdominal tenderness, no masses, no pulsatile masses. [] : refused. Skin: Warm, dry, no erythema, no rash. [] Back: No tenderness, no CVA tenderness. [] Extremities: No tenderness, no cyanosis, no clubbing, ROM intact, no edema. [] Neurologic: Alert and oriented X 3, normal motor function, normal sensory function, no focal deficits noted. [] Psychologic: Affect normal, judgement normal, mood normal. [] Current Patient Data Vital Signs Vital Signs Date Time Temp Pulse Resp B/P (MAP) Pulse Ox O2 Delivery O2 Flow Rate FiO2 02/18/18 15:42 16 99 02/18/18 15:23 142/88 (106) Room Air 02/18/18 14:21 97.6 77 97.6 Lab Values Laboratory Tests Test 02/18/18 14:31 02/18/18 14:34 02/18/18 14:45 Urine Collection Type Unknown Urine Color Yellow Urine Clarity Clear Urine pH 7.0 Urine Specific [place] 1.025 Urine Protein Negative mg/dL (NEG-TRACE) Urine Glucose (UA) Negative mg/dL (NEG) Urine Ketones (Stick) Negative mg/dL (NEG) Urine Blood Negative (NEG) Urine Nitrite Negative (NEG) Urine Bilirubin Negative (NEG) Urine Urobilinogen Dipstick 0.2 mg/dL (0.2 mg/dL) Urine Leukocyte Esterase Negative (NEG) Urine RBC 1-2 /HPF (0-2) Urine WBC 1-4 /HPF (0-4) Urine Squamous Epithelial Cells Mod /LPF Urine Bacteria Few /HPF (0-FEW) Urine Hyaline Casts Few /HPF Urine Granular Casts Occasional /HPF Urine Mucus Marked /LPF Urine Yeast Present /HPF Urine Test Negative (NEG) White Blood Count 8.1 x10^3/uL (4.0-11.0) Red Blood Count 4.18 x10^6/uL (3.50-5.40) Hemoglobin 12.8 g/dL (12.0-15.5) Hematocrit 37.4 % (36.0-47.0) Mean Corpuscular Volume 89 fL (79-100) Mean Corpuscular Hemoglobin 31 pg (25-35) Mean Corpuscular Hemoglobin Concent 34 g/dL (31-37) Red Cell Distribution Width 13.1 % (11.5-14.5) Platelet Count 332 x10^3/uL (140-400) Neutrophils (%) (Auto) 60 % (31-73) Lymphocytes (%) (Auto) 28 % (24-48) Monocytes (%) (Auto) 7 % (0-9) Eosinophils (%) (Auto) 4 % (0-3) H Basophils (%) (Auto) 1 % (0-3) Neutrophils # (Auto) 4.9 x10^3uL (1.8-7.7) Lymphocytes # (Auto) 2.3 x10^3/uL (1.0-4.8) Monocytes # (Auto) 0.5 x10^3/uL (0.0-1.1) Eosinophils # (Auto) 0.3 x10^3/uL (0.0-0.7) Basophils # (Auto) 0.1 x10^3/uL (0.0-0.2) Sodium Level 140 mmol/L (136-145) Potassium Level 3.7 mmol/L (3.5-5.1) Chloride Level 106 mmol/L (98-107) Carbon Dioxide Level 26 mmol/L (21-32) Anion Gap 8 (6-14) Blood Urea Nitrogen 11 mg/dL (7-20) Creatinine 0.7 mg/dL (0.6-1.0) Estimated GFR (Cockcroft-Gault) 90.9 BUN/Creatinine Ratio 16 (6-20) Glucose Level 99 mg/dL (70-99) Calcium Level 8.7 mg/dL (8.5-10.1) Total Bilirubin 0.2 mg/dL (0.2-1.0) Aspartate Amino Transferase (AST) 13 U/L (15-37) L Alanine Aminotransferase (ALT) 10 U/L (14-59) L Alkaline Phosphatase 97 U/L (46-116) Total Protein 6.6 g/dL (6.4-8.2) Albumin 3.1 g/dL (3.4-5.0) L Albumin/Globulin Ratio 0.9 (1.0-1.7) L Lipase 193 U/L (73-393) Laboratory Tests 02/18/18 14:45 Laboratory Tests 02/18/18 14:45 EKG EKG [] Radiology/Procedures Radiology/Procedures PROCEDURE: CT ABD PELV W/ IV CONTRST ONLY CT of the abdomen and pelvis with contrast, 02/18/2018: HISTORY: Abdominal pain, nausea, vomiting, diarrhea Multidetector CT imaging was performed following an IV bolus injection of iodinated contrast material. No oral contrast material was administered for this study. The gallbladder is surgically absent. No hepatic abnormality is seen. The pancreas is unremarkable. The spleen is of normal size. No renal or adrenal abnormality is detected. Minimal aortic calcific plaquing is present. No abdominal or pelvic adenopathy is seen. The bowel loops are not dilated. A portion of the appendix is visualized and it is unremarkable. No small bowel abnormality is seen. There is a small amount of retained fluid and food debris in the stomach. No free air or free fluid is evident in the abdomen or pelvis. IMPRESSION: No acute abdominal or pelvic abnormality is detected.[] Course & Med Decision Making Course & Med Decision Making Pertinent Labs and Imaging studies reviewed. (See chart for details) []Discussed lab and imaging findings with patient. Patient's pain improved. States she is feeling much better. On reexamination, abdomen is soft nontender nondistended. No peritoneal signs. Tolerating by mouth. Discussed symptomatic treatment outpatient. We'll prescribe omeprazole for 10 days. Will treat for yeast infection is patient on examination states she is having some chunky white discharge. Offered pelvic exam but patient refused. Discussed the importance of follow-up with GI this coming week. Provided contact information/ education. Discussed reasons to return to the ED. Patient understands and agrees with plan. Staff Physician Addendum: I was working in the ER during the course of this patient's visit. I was available for consultation as needed, but I was not directly involved in the care of this patient. Dragon Disclaimer Dragon Disclaimer This electronic medical record was generated, in whole or in part, using a voice recognition dictation system. Departure Departure Impression: Primary Impression: Abdominal pain Additional Impression: Yeast infection Disposition: HOME, SELF-CARE Condition: IMPROVED Referrals: YANCY ARCHULETA MD (PCP) KIT FRANKEL MD Patient Instructions: Abdominal Pain, Candidal Vulvovaginitis, [id number] Scripts Omeprazole (OMEPRAZOLE) 20 Mg Tablet.dr 1 TAB PO DAILY for 10 Days, #10 TAB 0 Refills Prov: ARNULFO COLLINS 02/18/18 Fluconazole (DIFLUCAN) 150 Mg Tablet 1 TAB PO ONCE, #2 TAB 0 Refills Prov: ARNULFO COLLINS 02/18/18 Problem Qualifiers ARNULFO COLLINS Feb 18, 2018 14:29 OCTAVIA BRIGHT MD Feb 20, 2018 06:29
[2018-02-18] MEDS: MORPHINE SULFATE 4 MG/ML VIAL. IV ONE (14:43)
[2018-02-18] MEDS: ONDANSETRON PF 4 MG/2 ML VIAL. IV ONE (14:43)
[2018-02-18] MEDS ORDERED: CONTRAST GIVEN. MC PRN (14:45)
[2018-02-18] MEDS: IOHEXOL 300 MG/ML 100ML VIAL. IV ONE (14:51)
[2018-02-18 14:59] LABS: BASO # 0.1 x10^3/uL (0.0-0.2); BASO % 1 % (0-3); EOS # 0.3 x10^3/uL (0.0-0.7); EOS % 4 % (0-3); HEMATOCRIT 37.4 % (36.0-47.0); HEMOGLOBIN 12.8 g/dL (12.0-15.5); LYMPH # 2.3 x10^3/uL (1.0-4.8); LYMPH % 28 % (24-48); MEAN CORPUSCULAR HEMOGLOBIN 31 pg (25-35); MEAN CORPUSCULAR HGB CONC 34 g/dL (31-37); MEAN CORPUSCULAR VOLUME 89 fL (79-100); MONO # 0.5 x10^3/uL (0.0-1.1); MONO % 7 % (0-9); NEUT # 4.9 x10^3uL (1.8-7.7); NEUT % 60 % (31-73); PLATELET COUNT 332 x10^3/uL (140-400); RED BLOOD COUNT 4.18 x10^6/uL (3.50-5.40); RED CELL DISTRIBUTION WIDTH 13.1 % (11.5-14.5); WHITE BLOOD COUNT 8.1 x10^3/uL (4.0-11.0)
[2018-02-18 15:05] LABS: BILIRUBIN,URINE NEGATIVE (NEG); CLARITY,URINE CLEAR; COLOR,URINE YELLOW; NITRITE,URINE NEGATIVE (NEG); PROTEIN,URINE NEGATIVE (NEG-TRACE); UROBILINOGEN,URINE 0.2 mg/dL (0.2 mg/dL)
[2018-02-18 15:06] LABS: CALCIUM 8.7 mg/dL (8.5-10.1); CREATININE 0.7 mg/dL (0.6-1.0); GFR 90.9; POTASSIUM 3.7 mmol/L (3.5-5.1)
[2018-02-18 15:10] LABS: ALBUMIN 3.1 g/dL (3.4-5.0); ALBUMIN/GLOBULIN RATIO 0.9 (1.0-1.7); TOTAL BILIRUBIN 0.2 mg/dL (0.2-1.0); TOTAL PROTEIN 6.6 g/dL (6.4-8.2)
[2018-02-18 15:18] LABS: BACTERIA,URINE FEW /HPF (0-FEW); GRANULAR CASTS,URINE OCCASIONAL /HPF; HYALINE CASTS, URINE FEW /HPF; SQUAMOUS EPITHELIAL CELL,UR MOD /LPF; YEAST,URINE PRESENT /HPF
[2018-02-18 15:23] VITALS: BP 142/88
[2018-02-18 15:33] LABS: U PREG PATIENT NEGATIVE (NEG)
[2018-02-18] MEDS: MORPHINE SULFATE 2 MG/ML VIAL. IV ONE (15:42)
--- NOTE | 2018-02-18 15:45 | RAD ---
CT of the abdomen and pelvis with contrast, 02/18/2018: HISTORY: Abdominal pain, nausea, vomiting, diarrhea Multidetector CT imaging was performed following an IV bolus injection of iodinated contrast material. No oral contrast material was administered for this study. The gallbladder is surgically absent. No hepatic abnormality is seen. The pancreas is unremarkable. The spleen is of normal size. No renal or adrenal abnormality is detected. Minimal aortic calcific plaquing is present. No abdominal or pelvic adenopathy is seen. The bowel loops are not dilated. A portion of the appendix is visualized and it is unremarkable. No small bowel abnormality is seen. There is a small amount of retained fluid and food debris in the stomach. No free air or free fluid is evident in the abdomen or pelvis. IMPRESSION: No acute abdominal or pelvic abnormality is detected. PQRS Compliance Statement: One or more of the following individualized dose reduction techniques were utilized for this examination: 1. Automated exposure control 2. Adjustment of the mA and/or kV according to patient size 3. Use of iterative reconstruction technique Electronically signed by: Juan Miguel Rodriguez MD (02/18/2018 3:41 PM) [facility]
[2018-02-18] MEDS ORDERED: FLUC150T PO (15:59)
[2018-02-18] MEDS ORDERED: OMEP20TA8 PO (15:59)
[2018-02-18] MEDS: KETOROLAC 30 MG/ML VIAL. IV ONE (17:34)
== END 2018-02-18 17:43 | disposition home or self-care (01) ==
LOC: ER 14:03
DX: R10.31 Right lower quadrant pain (principal); R10.32 Left lower quadrant pain; R10.84 Generalized abdominal pain; B37.9 Candidiasis, unspecified; Z90.49 Acquired absence of other specified parts of digestive tract; Z98.51 Tubal ligation status
CPT/HCPCS: 36415; 74177; 80053; 81001; 81025; 83690; 85025; 96374; 96375; 96376; 99285; J1885; J2270; J2405; Q9967

== ENCOUNTER 2018-06-22 13:08 | Emergency (ER) | payer SELFPAY ==
[~2018-06-22] VITALS: Ht 154.9 cm; Wt 68.5 kg
[~2018-06-22 13:08] MED LIST changes: +FLUC150T PO; +FURO-68 PO; -GABA-586 PO; +GABA300C18 PO; +HYDR-3164 PO; +METO25TA4 PO; +OMEP20TA8 PO; +PARO20TA99 PO; +POTA20TA4 PO
[2018-06-22] MEDS ORDERED: IV NORMAL SALINE 1000ML BAG 1,000 ML IV SCH (13:50)
[2018-06-22] MEDS ORDERED: MORPHINE SULFATE 2 MG/ML VIAL. IV/SQ PRN (14:00)
[2018-06-22] MEDS ORDERED: ONDANSETRON PF 4 MG/2 ML VIAL. IV ONE (14:00)
[2018-06-22] MEDS ORDERED: ASPIRIN CHEWABLE 81 MG TABLET. PO ONE (14:00)
[2018-06-22 14:10] LABS: BASO # 0.1 x10^3/uL (0.0-0.2); BASO % 1 % (0-3); EOS # 0.1 x10^3/uL (0.0-0.7); EOS % 2 % (0-3); HEMATOCRIT 41.5 % (36.0-47.0); HEMOGLOBIN 13.4 g/dL (12.0-15.5); LYMPH # 3.2 x10^3/uL (1.0-4.8); LYMPH % 34 % (24-48); MEAN CORPUSCULAR HEMOGLOBIN 28 pg (25-35); MEAN CORPUSCULAR HGB CONC 32 g/dL (31-37); MEAN CORPUSCULAR VOLUME 87 fL (79-100); MONO # 0.5 x10^3/uL (0.0-1.1); MONO % 6 % (0-9); NEUT # 5.4 x10^3uL (1.8-7.7); NEUT % 57 % (31-73); PLATELET COUNT 354 x10^3/uL (140-400); RED BLOOD COUNT 4.76 x10^6/uL (3.50-5.40); RED CELL DISTRIBUTION WIDTH 14.2 % (11.5-14.5); WHITE BLOOD COUNT 9.5 x10^3/uL (4.0-11.0)
[2018-06-22 14:27] LABS: BILIRUBIN,URINE NEGATIVE (NEG); NITRITE,URINE NEGATIVE (NEG); PROTEIN,URINE NEGATIVE (NEG-TRACE)
--- NOTE | 2018-06-22 14:32 | RAD ---
Single view chest dated 06/22/2018. Comparison made to 04/05/2018. CLINICAL INDICATION: Chest pain. FINDINGS: Single upright portable exam performed. Heart and mediastinal contours are within normal limits. Lungs are clear without focal consolidation. Vascular interstitium within normal limits. No pleural effusion or pneumothorax. IMPRESSION: No acute radiographic abnormality. Electronically signed by: Eugene Ritter MD (06/22/2018 2:28 PM) [facility]
[2018-06-22 14:40] LABS: ALBUMIN 3.8 g/dL (3.4-5.0); CALCIUM 8.8 mg/dL (8.5-10.1); CREATININE 0.8 mg/dL (0.6-1.0); GFR 77.6; TOTAL BILIRUBIN 0.4 mg/dL (0.2-1.0); TOTAL PROTEIN 7.5 g/dL (6.4-8.2)
[2018-06-22 14:41] LABS: CLARITY,URINE CLEAR; COLOR,URINE YELLOW
[2018-06-22 14:45] LABS: BACTERIA,URINE MODERATE /HPF (0-FEW); RBC,URINE RARE /HPF (0-2); SQUAMOUS EPITHELIAL CELL,UR MANY /LPF; YEAST,URINE PRESENT /HPF
--- NOTE | 2018-06-22 14:46 | PHYS DOC ---
Past Medical History Past Medical History: CHF, Seizure, Other Additional Past Medical Histor: POOR HISTORIAN Past Surgical History: Other Additional Past Surgical Histo: L KNEE, GALL BLADDER REMOVED, CYST REMOVED ON THYROID, TUBAL Alcohol Use: None Drug Use: None Adult General Chief Complaint Chief Complaint: CHEST PAIN HPI HPI Patient is a 43-year-old female who presents with complaint of nausea with vomiting and diarrhea for the last week as well as intermittent chest pain for the last week. She also indicates that all of the muscles in her body ache and hurt to the touch. Patient rates her pain to be an 8 out of 10. She states that she did not come in sooner because she was afraid that she would be admitted. Patient denies any fever or shortness of breath. She states that symptoms are worsened if she eats or drinks. She states that nothing improves her symptoms. Review of Systems Review of Systems Constitutional: Denies fever or chills [] Respiratory: Denies cough or shortness of breath [] Cardiovascular: No additional information not addressed in HPI [] GI: Complains of abdominal cramping with nausea, vomiting and diarrhea [] : Denies dysuria or hematuria [] Musculoskeletal: Complains of diffuse body aches [] Integument: Denies rash or skin lesions [] All other systems were reviewed and found to be within normal limits, except as documented in this note. Current Medications Current Medications Current Medications Medications (Trade) Dose Ordered Sig/[facility] Start Time Stop Time Status Last Admin Dose Admin Aspirin (Children'S Aspirin) 324 mg 1X ONCE 06/22/18 14:00 06/22/18 14:02 DC 06/22/18 14:09 324 MG Morphine Sulfate (Morphine Sulfate) 2 mg PRN Q15MIN PRN 06/22/18 14:00 06/23/18 13:59 06/22/18 14:10 2 MG Ondansetron HCl (Zofran) 4 mg 1X ONCE 06/22/18 14:00 06/22/18 14:02 DC 06/22/18 14:10 4 MG Potassium Chloride (Klor-Con) 40 meq 1X ONCE 06/22/18 15:00 06/22/18 15:01 DC 06/22/18 14:54 40 MEQ Sodium Chloride 1,000 ml @ 1,000 mls/hr Q1H 06/22/18 13:50 06/22/18 14:49 DC 06/22/18 14:15 1,000 MLS/HR Allergies Allergies Allergies Coded Allergies Type Severity Reaction Last Updated Verified No Known Drug Allergies 01/01/18 No Physical Exam Physical Exam Constitutional: Well developed, well nourished, no acute distress, non-toxic appearance. [] HENT: Normocephalic, atraumatic, bilateral external ears normal, oropharynx moist, no oral exudates, nose normal. [] Eyes: PERRLA, EOMI, conjunctiva normal, no discharge. [] Neck: Normal range of motion, no tenderness, supple, no stridor. [] Cardiovascular: Regular rate and rhythm [] Lungs & Thorax: Bilateral breath sounds clear to auscultation [] Abdomen: Bowel sounds normal, soft, with mild tenderness in the left lower abdomen and epigastric region. [] Skin: Warm, dry, no erythema, no rash. [] Extremities: No tenderness, no cyanosis, no clubbing, ROM intact, no edema. [] Neurologic: Alert and oriented X 3, no focal deficits noted. [] Current Patient Data Vital Signs Vital Signs Date Time Temp Pulse Resp B/P (MAP) Pulse Ox O2 Delivery O2 Flow Rate FiO2 06/22/18 14:42 80 16 161/92 (115) 06/22/18 14:40 98 Room Air 06/22/18 13:12 97.7 97.7 Lab Values Laboratory Tests Test 06/22/18 13:38 06/22/18 14:15 White Blood Count 9.5 x10^3/uL (4.0-11.0) Red Blood Count 4.76 x10^6/uL (3.50-5.40) Hemoglobin 13.4 g/dL (12.0-15.5) Hematocrit 41.5 % (36.0-47.0) Mean Corpuscular Volume 87 fL (79-100) Mean Corpuscular Hemoglobin 28 pg (25-35) Mean Corpuscular Hemoglobin Concent 32 g/dL (31-37) Red Cell Distribution Width 14.2 % (11.5-14.5) Platelet Count 354 x10^3/uL (140-400) Neutrophils (%) (Auto) 57 % (31-73) Lymphocytes (%) (Auto) 34 % (24-48) Monocytes (%) (Auto) 6 % (0-9) Eosinophils (%) (Auto) 2 % (0-3) Basophils (%) (Auto) 1 % (0-3) Neutrophils # (Auto) 5.4 x10^3uL (1.8-7.7) Lymphocytes # (Auto) 3.2 x10^3/uL (1.0-4.8) Monocytes # (Auto) 0.5 x10^3/uL (0.0-1.1) Eosinophils # (Auto) 0.1 x10^3/uL (0.0-0.7) Basophils # (Auto) 0.1 x10^3/uL (0.0-0.2) D-Dimer (Blanche) < 0.27 ug/mlFEU Sodium Level 137 mmol/L (136-145) Potassium Level 2.8 mmol/L (3.5-5.1) *L Chloride Level 102 mmol/L (98-107) Carbon Dioxide Level 22 mmol/L (21-32) Anion Gap 13 (6-14) Blood Urea Nitrogen 9 mg/dL (7-20) Creatinine 0.8 mg/dL (0.6-1.0) Estimated GFR (Cockcroft-Gault) 77.6 BUN/Creatinine Ratio 11 (6-20) Glucose Level 79 mg/dL (70-99) Calcium Level 8.8 mg/dL (8.5-10.1) Magnesium Level 2.0 mg/dL (1.8-2.4) Total Bilirubin 0.4 mg/dL (0.2-1.0) Aspartate Amino Transferase (AST) 20 U/L (15-37) Alanine Aminotransferase (ALT) 14 U/L (14-59) Alkaline Phosphatase 127 U/L (46-116) H Troponin I Quantitative < 0.017 ng/mL (0.000-0.055) HE-Pfi-T-Type Natriuretic Peptide 992 pg/mL (0-124) H Total Protein 7.5 g/dL (6.4-8.2) Albumin 3.8 g/dL (3.4-5.0) Albumin/Globulin Ratio 1.0 (1.0-1.7) Lipase 64 U/L (73-393) L Urine Collection Type Unknown Urine Color Yellow Urine Clarity Clear Urine pH 6.0 Urine Specific [place] 1.025 Urine Protein Negative mg/dL (NEG-TRACE) Urine Glucose (UA) Negative mg/dL (NEG) Urine Ketones (Stick) Trace mg/dL (NEG) Urine Blood Small (NEG) Urine Nitrite Negative (NEG) Urine Bilirubin Negative (NEG) Urine Urobilinogen Dipstick 1.0 mg/dL (0.2 mg/dL) Urine Leukocyte Esterase Small (NEG) Urine RBC Rare /HPF (0-2) Urine WBC 1-4 /HPF (0-4) Urine Squamous Epithelial Cells Many /LPF Urine Bacteria Moderate /HPF (0-FEW) Urine Mucus Marked /LPF Urine Yeast Present /HPF Urine Opiates Screen Pos (NEG) Urine Methadone Screen Neg (NEG) Urine Barbiturates Neg (NEG) Urine Phencyclidine Screen Neg (NEG) Urine Amphetamine/Methamphetamine Neg (NEG) Urine Benzodiazepines Screen Pos (NEG) Urine Cocaine Screen Neg (NEG) Urine Cannabinoids Screen Pos (NEG) Urine Ethyl Alcohol Neg (NEG) Laboratory Tests 06/22/18 13:38 Laboratory Tests 06/22/18 13:38 EKG EKG [] Interpretation Time: EKG demonstrates normal sinus rhythm with rate of 77. Radiology/Procedures Radiology/Procedures [] Impressions: PROCEDURE: PORTABLE CHEST 1V Single view chest dated 06/22/2018. Comparison made to 04/05/2018. CLINICAL INDICATION: Chest pain. FINDINGS: Single upright portable exam performed. Heart and mediastinal contours are within normal limits. Lungs are clear without focal consolidation. Vascular interstitium within normal limits. No pleural effusion or pneumothorax. IMPRESSION: No acute radiographic abnormality. Electronically signed by: Eugene Ritter MD (06/22/2018 2:28 PM) [facility] Course & Med Decision Making Course & Med Decision Making Pertinent Labs and Imaging studies reviewed. (See chart for details) [] Dragon Disclaimer Dragon Disclaimer This electronic medical record was generated, in whole or in part, using a voice recognition dictation system. Departure Departure Impression: Primary Impression: Atypical chest pain Additional Impressions: Hypokalemia Gastroenteritis Disposition: 01 HOME, SELF-CARE Condition: STABLE Referrals: YANCY ARCHULETA MD (PCP) Patient Instructions: Chest Pain (Nonspecific), Hypokalemia, Viral Gastroenteritis Scripts Diphenoxylate Hcl/Atropine (LOMOTIL TABLET) 1 Each Tablet 1 TAB PO TID PRN for DIARRHEA, #15 TAB Prov: CARMELA HERBERT Jr. DO 06/22/18 Potassium Chloride (POTASSIUM CHLORIDE) 10 Meq Tablet.er 10 MEQ PO DAILY for 7 Days, #7 TAB Prov: CARMELA HERBERT Jr. DO 06/22/18 Tramadol Hcl (TRAMADOL HCL) 50 Mg Tablet 50 MG PO Q6HRS PRN for PAIN, #12 TAB Prov: CARMELA HERBERT Jr. DO 06/22/18 Ondansetron Hcl (ZOFRAN) 4 Mg Tablet 4 MG PO PRN TID PRN for NAUSEA, #15 nausea/vomiting Prov: CARMELA HERBERT Jr. DO 06/22/18 Problem Qualifiers CARMELA HERBERT Jr. DO Jun 22, 2018 14:46
[2018-06-22 14:47] LABS: POTASSIUM 2.8 mmol/L (3.5-5.1)
[2018-06-22 14:52] LABS: BARBITURATES NEG (NEG); BENZODIAZEPINES POS (NEG); CANNABINOIDS POS (NEG); COCAINE NEG (NEG); METHADONE NEG (NEG); OPIATES POS (NEG); PHENCYCLIDINE NEG (NEG)
[2018-06-22 14:55] LABS: AMPHETAMINE/METHAMPHETAMINE NEG (NEG)
[2018-06-22] MEDS ORDERED: POTASSIUM CHLORIDE 20 MEQ TABLET.ER. PO ONE (15:00)
[2018-06-22] MEDS ORDERED: KETOROLAC 30 MG/ML VIAL. IV ONE (15:15)
[2018-06-22] MEDS ORDERED: MORPHINE SULFATE 4 MG/ML VIAL. IV ONE (15:15)
[2018-06-22] MEDS ORDERED: TRAM50TA PO (15:20)
[2018-06-22] MEDS ORDERED: POTA10TA12 PO (15:20)
[2018-06-22] MEDS ORDERED: ONDA4TAB7 PO (15:20)
[2018-06-22] MEDS ORDERED: DIPH1TAB PO (15:21)
[2018-06-22 15:30] VITALS: BP 162/89
--- NOTE | 2018-06-23 10:25 | EKG ---
[facility] [address] [place] [address] Test Date: 2018-06-22 Test Time: 13:19:13 Pat Name: TRE ASENCIO Department: Room: Gender: F Vp Respiratory: : 1975 Requested By: CARMELA HERBERT Order Number: [id number] Reading MD: Measurements Intervals [place] Rate: 77 P: 56 OR: 148 QRS: 49 QRSD: 94 T: 146 QT: 400 QTc: 454 Interpretive Statements SINUS RHYTHM T ABNORMALITY IN ANTERIOR LEADS LATERAL LEADS NON SPECIFIC ST DEPRESSION ABNORMAL ECG No previous ECG available for comparison
== END 2018-06-22 15:40 | disposition home or self-care (01) ==
LOC: ER 13:08
DX: K52.89 Other specified noninfective gastroenteritis and colitis (principal); R07.89 Other chest pain; E87.6 Hypokalemia; M79.18 Myalgia, other site; I25.10 Atherosclerotic heart disease of native coronary artery without angina pectoris
CPT/HCPCS: 36415; 71045; 80053; 80307; 81001; 83690; 83735; 83880; 84484; 85025; 85379; 87086; 93005; 96361; 96374; 96375; 96376; 99284; J1885; J2270; J2405; J7030

== ENCOUNTER 2018-08-07 12:28 | Inpatient (IN) | payer SELFPAY ==
[~2018-08-07] VITALS: Ht 154.9 cm; Wt 72.4 kg
[~2018-08-07 12:28] MED LIST changes: +DIPH1TAB PO; +ONDA4TAB7 PO; +POTA10TA12 PO; +TRAM50TA PO
[2018-08-07] MEDS ORDERED: MORPHINE SULFATE 2 MG/ML VIAL. IV ONE (12:45)
[2018-08-07] MEDS ORDERED: ASPIRIN CHEWABLE 81 MG TABLET. PO ONE (12:45)
--- NOTE | 2018-08-07 12:56 | PHYS DOC ---
Past Medical History Past Medical History: CHF, Seizure, Other Additional Past Medical Histor: POOR HISTORIAN Past Surgical History: Other Additional Past Surgical Histo: L KNEE, GALL BLADDER REMOVED, CYST REMOVED ON THYROID, TUBAL Alcohol Use: None Drug Use: None Adult General Chief Complaint Chief Complaint: CHEST PAIN HPI HPI Patient is a 43-year-old female who presents to the emergency department for evaluation of sharp, tearing anterior chest pain with radiation to her back which has been present for the past few days. Exertion seems to worsen her chest pain, and she reports some shortness of breath but denies any pleuritic pain. She denies any dizziness or lightheadedness. She also reports a skin eruption of some scabs/small boil-like lesions without any definite abscess. She denies the use of amphetamines. She does report a history of CHF, but recently had an echocardiogram within the EF of 55%. She does appear somewhat anxious at this time. There are no alleviating or exacerbating factors to the patient's symptoms, except as noted above. Review of Systems Review of Systems Constitutional: Denies fever or chills [] Eyes: Denies change in visual acuity, redness, or eye pain [] HENT: Denies nasal congestion or sore throat [] Respiratory: Denies cough or pleuritic pain[] Cardiovascular: No additional information not addressed in HPI [] GI: Denies abdominal pain, nausea, vomiting, bloody stools or diarrhea [] : Denies dysuria or hematuria [] Musculoskeletal: Denies back pain or joint pain [] Integument: Denies rash or skin lesions except as noted in the history of present illness [] Neurologic: Denies headache, focal weakness or sensory changes [] Endocrine: Denies polyuria or polydipsia [] All other systems were reviewed and found to be within normal limits, except as documented in this note. Current Medications Current Medications Current Medications Medications (Trade) Dose Ordered Sig/Jayleen Start Time Stop Time Status Last Admin Dose Admin Aspirin (Children'S Aspirin) 324 mg 1X ONCE 08/07/18 12:45 08/07/18 12:49 DC 08/07/18 13:26 324 MG Info (CONTRAST GIVEN -- Rx MONITORING) 1 each PRN DAILY PRN 08/07/18 13:45 08/09/18 13:44 Iohexol (Omnipaque 350 Mg/ml) 75 ml 1X ONCE 08/07/18 13:30 08/07/18 13:31 DC 08/07/18 13:41 75 ML Labetalol HCl (Normodyne Iv Push) 20 mg 1X ONCE 08/07/18 13:00 08/07/18 13:01 DC Morphine Sulfate (Morphine Sulfate) 2 mg 1X ONCE 08/07/18 12:45 08/07/18 12:49 DC 08/07/18 13:26 2 MG Allergies Allergies Allergies Coded Allergies Type Severity Reaction Last Updated Verified No Known Drug Allergies 01/01/18 No Physical Exam Physical Exam PHYSICAL EXAM: CONSTITUTIONAL: Well developed, well nourished HEAD: normocephalic, atraumatic EENT: PERRL, EOMI. Conjunctivae normal color, sclerae non-icteric; moist mucous membranes. NECK: Supple, non-tender; no meningismus. LUNGS: Lungs CTA, the patient is mildly hyperventilating, Normal air movement. HEART: Regular rate and rhythm, no murmur CHEST: No deformity; non-tender ABDOMEN: The abdomen is soft, and non-tender, no masses or bruits. EXTREM: Normal ROM; no deformity, no calf tenderness. Normal pulses palpable in all extremities. There is no pedal edema. SKIN: There are a few scattered scabbed lesions on the face and extremities, no other rash; no diaphoresis NEURO: Alert; normal speech and cognition; CN's grossly intact; strength grossly intact without focal deficit. BACK: No CVA TTP. PSYCHIATRIC: The patient appears moderately anxious. Current Patient Data Vital Signs Vital Signs Date Time Temp Pulse Resp B/P (MAP) Pulse Ox O2 Delivery O2 Flow Rate FiO2 08/07/18 12:57 Room Air 08/07/18 12:32 97.9 89 22 173/105 (127) 99 97.9 Lab Values Laboratory Tests Test 08/07/18 12:47 08/07/18 12:57 08/07/18 13:00 08/07/18 13:02 White Blood Count 8.3 x10^3/uL (4.0-11.0) Red Blood Count 4.91 x10^6/uL (3.50-5.40) Hemoglobin 13.6 g/dL (12.0-15.5) Hematocrit 41.7 % (36.0-47.0) Mean Corpuscular Volume 85 fL (79-100) Mean Corpuscular Hemoglobin 28 pg (25-35) Mean Corpuscular Hemoglobin Concent 33 g/dL (31-37) Red Cell Distribution Width 15.1 % (11.5-14.5) H Platelet Count 409 x10^3/uL (140-400) H Neutrophils (%) (Auto) 51 % (31-73) Lymphocytes (%) (Auto) 41 % (24-48) Monocytes (%) (Auto) 5 % (0-9) Eosinophils (%) (Auto) 2 % (0-3) Basophils (%) (Auto) 1 % (0-3) Neutrophils # (Auto) 4.3 x10^3uL (1.8-7.7) Lymphocytes # (Auto) 3.4 x10^3/uL (1.0-4.8) Monocytes # (Auto) 0.4 x10^3/uL (0.0-1.1) Eosinophils # (Auto) 0.2 x10^3/uL (0.0-0.7) Basophils # (Auto) 0.1 x10^3/uL (0.0-0.2) Prothrombin Time 13.0 SEC (11.7-14.0) Prothrombin Time INR 1.0 (0.8-1.1) Sodium Level 139 mmol/L (136-145) Potassium Level 3.2 mmol/L (3.5-5.1) L Chloride Level 102 mmol/L (98-107) Carbon Dioxide Level 24 mmol/L (21-32) Anion Gap 13 (6-14) Blood Urea Nitrogen 6 mg/dL (7-20) L Creatinine 0.7 mg/dL (0.6-1.0) Estimated GFR (Cockcroft-Gault) 90.5 BUN/Creatinine Ratio 9 (6-20) Glucose Level 98 mg/dL (70-99) Calcium Level 9.4 mg/dL (8.5-10.1) Magnesium Level 1.9 mg/dL (1.8-2.4) Total Bilirubin 0.7 mg/dL (0.2-1.0) Aspartate Amino Transferase (AST) 25 U/L (15-37) Alanine Aminotransferase (ALT) 11 U/L (14-59) L Alkaline Phosphatase 116 U/L (46-116) Creatine Kinase 59 U/L (26-192) Creatine Kinase MB (Mass) < 0.5 ng/mL (0.0-3.6) Creatine Kinase MB Relative Index % (0-4) Troponin I Quantitative < 0.017 ng/mL (0.000-0.055) HF-Frm-D-Type Natriuretic Peptide 2683 pg/mL (0-124) H Total Protein 7.5 g/dL (6.4-8.2) Albumin 3.4 g/dL (3.4-5.0) Albumin/Globulin Ratio 0.8 (1.0-1.7) L Lipase 73 U/L (73-393) O2 Saturation 95 % (92-99) Arterial Blood pH 7.57 (7.35-7.45) *H Arterial Blood pCO2 at Patient Temp 27 mmHg (35-46) L Arterial Blood pO2 at Patient Temp 70 mmHg (75-108) L Arterial Blood HCO3 24 mmol/L (21-28) Arterial Blood Base Excess 3 mmol/L (-3-3) FiO2 21 Urine Collection Type Unknown Urine Color Yellow Urine Clarity Clear Urine pH 6.5 Urine Specific [place] >=1.030 Urine Protein 30 mg/dL (NEG-TRACE) Urine Glucose (UA) Negative mg/dL (NEG) Urine Ketones (Stick) Trace mg/dL (NEG) Urine Blood Negative (NEG) Urine Nitrite Negative (NEG) Urine Bilirubin Small (NEG) Urine Urobilinogen Dipstick 1.0 mg/dL (0.2 mg/dL) Urine Leukocyte Esterase Negative (NEG) Urine RBC 1-2 /HPF (0-2) Urine WBC 1-4 /HPF (0-4) Urine Squamous Epithelial Cells Mod /LPF Urine Bacteria Many /HPF (0-FEW) Urine Mucus Marked /LPF Urine Opiates Screen Pos (NEG) Urine Methadone Screen Neg (NEG) Urine Barbiturates Neg (NEG) Urine Phencyclidine Screen Neg (NEG) Urine Amphetamine/Methamphetamine Neg (NEG) Urine Benzodiazepines Screen Pos (NEG) Urine Cocaine Screen Neg (NEG) Urine Cannabinoids Screen Pos (NEG) Urine Ethyl Alcohol Neg (NEG) POC Urine HCG, Qualitative Hcg negative (Negative) Laboratory Tests 08/07/18 12:47 Laboratory Tests 08/07/18 12:47 EKG EKG Normal sinus rhythm at a rate of 82 beats for minute, normal axis, normal intervals, there is anterior/lateral T-wave inversion, with diffuse nonspecific ST/T changes, the EKG is unchanged from the patient's EKG from 06/22/18.[] Radiology/Procedures Radiology/Procedures [PROCEDURE: PORTABLE CHEST 1V EXAM: Chest, single view. HISTORY: Chest pain. COMPARISON: None. FINDINGS: A frontal view of the chest obtained. There is no infiltrate, pleural effusion or pneumothorax. The heart is normal in size. There is mild thoracic scoliosis. IMPRESSION: No acute pulmonary finding.] PROCEDURE: CT ANGIOGRAPHY CHEST CTA of the chest with contrast, 08/07/2018: HISTORY: Chest pain, shortness of breath, possible aortic dissection Multidetector CT imaging was performed following an IV bolus injection of iodinated contrast material. The bolus timing was optimized for delineation of the aorta. Multiplanar reconstructions were produced including 3-D volume rendered reconstructions of the aorta. There is minimal pulsation type artifacts related to the ascending aorta. There is no evidence of aortic aneurysm or dissection. No significant aortic plaquing is evident. There are granulomatous calcifications in the mediastinum and in the right lung. No mediastinal or hilar adenopathy is seen. In addition to calcified granulomata in the right lung, there is a 3 mm noncalcified nodule in the lateral aspect of the right upper lobe. This is unchanged since 11/08/2017 and is likely of granulomatous origin. No pulmonary consolidation is seen. There is no evidence of pleural fluid. There are mild scattered degenerative changes in the spine. IMPRESSION: 1. No significant aortic abnormality is detected. 2. 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 Course & Med Decision Making Course & Med Decision Making Pertinent Labs and Imaging studies reviewed. (See chart for details) 2:35 PM:The patient's condition remains stable. I spoke with the hospitalist, who accepted the patient to the hospital for further evaluation and treatment. I did first speak with the patient's PCP, but was informed that he is heading out of town, and recommended I call the hospitalist service. Dragon Disclaimer Dragon Disclaimer This electronic medical record was generated, in whole or in part, using a voice recognition dictation system. Departure Departure Impression: Primary Impression: Chest pain Additional Impressions: Abnormal EKG Anxiety Disposition: ADMITTED INPATIENT Admitting Physician: Kimberley Maldonado Condition: STABLE Referrals: YANCY ARCHULETA MD (PCP) Problem Qualifiers ERIN STEELE MD Aug 07, 2018 12:56
[2018-08-07] MEDS ORDERED: LABETALOL 20 MG/4 ML DISP.SYRIN. IVP ONE (13:00)
--- NOTE | 2018-08-07 13:01 | EKG ---
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
[2018-08-07 13:04] LABS: BASO # 0.1 x10^3/uL (0.0-0.2); BASO % 1 % (0-3); EOS # 0.2 x10^3/uL (0.0-0.7); EOS % 2 % (0-3); HEMATOCRIT 41.7 % (36.0-47.0); HEMOGLOBIN 13.6 g/dL (12.0-15.5); LYMPH # 3.4 x10^3/uL (1.0-4.8); LYMPH % 41 % (24-48); MEAN CORPUSCULAR HEMOGLOBIN 28 pg (25-35); MEAN CORPUSCULAR HGB CONC 33 g/dL (31-37); MEAN CORPUSCULAR VOLUME 85 fL (79-100); MONO # 0.4 x10^3/uL (0.0-1.1); MONO % 5 % (0-9); NEUT # 4.3 x10^3uL (1.8-7.7); NEUT % 51 % (31-73); PLATELET COUNT 409 x10^3/uL (140-400); RED BLOOD COUNT 4.91 x10^6/uL (3.50-5.40); RED CELL DISTRIBUTION WIDTH 15.1 % (11.5-14.5); WHITE BLOOD COUNT 8.3 x10^3/uL (4.0-11.0)
[2018-08-07 13:14] LABS: BASE EXCESS ABG 3 mmol/L (-3-3); HCO3 ABG 24 mmol/L (21-28); PCO2 ABG 27 mmHg (35-46); PO2 ABG 70 mmHg (75-108); SAT O2 ABG 95 % (92-99)
[2018-08-07 13:17] LABS: CALCIUM 9.4 mg/dL (8.5-10.1); CREATININE 0.7 mg/dL (0.6-1.0); GFR 90.5; POTASSIUM 3.2 mmol/L (3.5-5.1)
[2018-08-07 13:18] LABS: BILIRUBIN,URINE SMALL (NEG); CLARITY,URINE CLEAR; NITRITE,URINE NEGATIVE (NEG); PH,URINE 6.5; PROTEIN,URINE 30 mg/dL (NEG-TRACE)
[2018-08-07 13:20] LABS: FIO2 ABG 21
[2018-08-07 13:24] LABS: ALBUMIN 3.4 g/dL (3.4-5.0); ALBUMIN/GLOBULIN RATIO 0.8 (1.0-1.7); MAGNESIUM 1.9 mg/dL (1.8-2.4); TOTAL BILIRUBIN 0.7 mg/dL (0.2-1.0); TOTAL PROTEIN 7.5 g/dL (6.4-8.2)
[2018-08-07 13:25] LABS: BARBITURATES NEG (NEG); BENZODIAZEPINES POS (NEG); CANNABINOIDS POS (NEG); COCAINE NEG (NEG); METHADONE NEG (NEG); OPIATES POS (NEG); PHENCYCLIDINE NEG (NEG)
[2018-08-07 13:26] LABS: AMPHETAMINE/METHAMPHETAMINE NEG (NEG)
[2018-08-07] MEDS ORDERED: IOHEXOL 350 MG/ML 100 ML VIAL. IV ONE (13:30)
[2018-08-07 13:32] LABS: CREATINE KINASE 59 U/L (26-192)
[2018-08-07 13:32] LABS: COLOR,URINE YELLOW
[2018-08-07 13:33] LABS: SQUAMOUS EPITHELIAL CELL,UR MOD /LPF
[2018-08-07 13:35] LABS: BACTERIA,URINE MANY /HPF (0-FEW)
--- NOTE | 2018-08-07 13:39 | RAD ---
EXAM: Chest, single view. HISTORY: Chest pain. COMPARISON: None. FINDINGS: A frontal view of the chest obtained. There is no infiltrate, pleural effusion or pneumothorax. The heart is normal in size. There is mild thoracic scoliosis. IMPRESSION: No acute pulmonary finding. Electronically signed by: Karlene Noe MD (08/07/2018 1:36 PM) [id number]
[2018-08-07] MEDS ORDERED: CONTRAST GIVEN. MC PRN (13:45)
--- NOTE | 2018-08-07 14:14 | RAD ---
CTA of the chest with contrast, 08/07/2018: HISTORY: Chest pain, shortness of breath, possible aortic dissection Multidetector CT imaging was performed following an IV bolus injection of iodinated contrast material. The bolus timing was optimized for delineation of the aorta. Multiplanar reconstructions were produced including 3-D volume rendered reconstructions of the aorta. There is minimal pulsation type artifacts related to the ascending aorta. There is no evidence of aortic aneurysm or dissection. No significant aortic plaquing is evident. There are granulomatous calcifications in the mediastinum and in the right lung. No mediastinal or hilar adenopathy is seen. In addition to calcified granulomata in the right lung, there is a 3 mm noncalcified nodule in the lateral aspect of the right upper lobe. This is unchanged since 11/08/2017 and is likely of granulomatous origin. No pulmonary consolidation is seen. There is no evidence of pleural fluid. There are mild scattered degenerative changes in the spine. IMPRESSION: 1. No significant aortic abnormality is detected. 2. 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 PQRS Compliance Statement: One or more of the following individualized dose reduction techniques were utilized for this examination: 1. Automated exposure control 2. Adjustment of the mA and/or kV according to patient size 3. Use of iterative reconstruction technique Electronically signed by: Juan Miguel Rodriguez MD (08/07/2018 2:11 PM) [facility]
[2018-08-07] MEDS ORDERED: POTASSIUM CHLORIDE 20 MEQ TABLET.ER. PO ONE (15:15)
--- NOTE | 2018-08-07 15:18 | PDOC1 ---
History and Physical Date of Admission Date of Admission DATE: 08/07/18 TIME: 15:10 Identification/Chief Complaint Chief Complaint chest pain Source Source: Chart review, Patient History of Present Illness History of Present Illness Marianne is a 43-year-old female, patient of Dr. Lawson, admit for acute chest pain that is sharp, tearing anterior chest pain with radiation to her back which has been present for the past few days. she has been seeing Dr. Lawson only, she was supposed to f.u with CV team for CHF and mitral regurg per their last note. prior admit for seizure, has ER visit for atypical chest pain 2 months ago and was sent home she reports left facial tingling and left hand numbness, and that her right hand is cold 10/10 chest pain "like I am being stabbed in the upper chest" pain to her back , CT angio done before my eval and read by me and Dr. García, no dissection seen, she can make the pain worse by pressing on her upper chest Past Medical History Cardiovascular: CHF, HTN Pulmonary: No pertinent hx CENTRAL NERVOUS SYSTEM: Seizure GI: GERD Hepatobiliary: Cholelithiasis Psych: Anxiety, Depression, Other Musculoskeletal: Osteoarthritis, Other Rheumatologic: Fibromyalgia Infectious disease: No pertinent hx Renal/: Other Endocrine: Other Past Surgical History Past Surgical History: Other Family History Family History: Cancer, Hypertension Social History Smoke: <1 pack per day ALCOHOL: none Drugs: Marijuana Current Problem List Problem List Problems Medical Problems: (1) Abnormal EKG Status: Acute (2) Anxiety Status: Acute Current Medications Current Medications Current Medications Aspirin (Children'S Aspirin) 324 mg 1X ONCE PO Last administered on 08/07/18at 13:26; Start 08/07/18 at 12:45; Stop 08/07/18 at 12:49; Status DC Morphine Sulfate (Morphine Sulfate) 2 mg 1X ONCE IV Last administered on at 13:26; Start 08/07/18 at 12:45; Stop 08/07/18 at 12:49; Status DC Labetalol HCl (Normodyne Iv Push) 20 mg 1X ONCE IVP ; Start 08/07/18 at 13:00; Stop 08/07/18 at 13:01; Status DC Iohexol (Omnipaque 350 Mg/ml) 75 ml 1X ONCE IV Last administered on 08/07/18at 13:41; Start 08/07/18 at 13:30; Stop 08/07/18 at 13:31; Status DC Info (CONTRAST GIVEN -- Rx MONITORING) 1 each PRN DAILY PRN MC SEE COMMENTS; Start 08/07/18 at 13:45; Stop 08/09/18 at 13:44 Lorazepam (Ativan) 1 mg 1X ONCE IV Last administered on 08/07/18at 15:00; Start 08/07/18 at 14:45; Stop 08/07/18 at 14:46; Status DC Lidocaine (Lidoderm) 1 patch DAILY TD ; Start 08/07/18 at 15:15; Status UNV Active Scripts Active Lomotil Tablet (Diphenoxylate Hcl/Atropine) 1 Each Tablet 1 Tab PO TID PRN Potassium Chloride 10 Meq Tablet.er 10 Meq PO DAILY 7 Days Tramadol Hcl 50 Mg Tablet 50 Mg PO Q6HRS PRN Zofran (Ondansetron Hcl) 4 Mg Tablet 4 Mg PO PRN TID PRN nausea/vomiting Lasix (Furosemide) 40 Mg Tablet 1 Tab PO DAILY Klor-Con M20 (Potassium Chloride) 20 Meq Tab.er.prt 20 Meq PO DAILYWBKFT MDD 1 while on lasix Metoprolol Tartrate 25 Mg Tablet 12.5 Mg PO BID MDD 1 Omeprazole 20 Mg Tablet.dr 1 Tab PO DAILY 10 Days [Pantoprazole] 40 MG Tablet.dr 40 Mg PO DAILYAC 30 Days Reported Paxil (Paroxetine Hcl) 20 Mg Tablet 1 Tab PO DAILY Trazodone Hcl 300 Mg Tablet 1 Tab PO QHS Valium (Diazepam) 5 Mg Tablet 5 Mg PO PRN BID PRN Cyclobenzaprine Hcl 10 Mg Tablet 10 Mg PO TID Gabapentin (Gabapentin) 300 Mg Capsule 400 Mg PO TID Allergies Allergies: Coded Allergies: No Known Drug Allergies (Unverified , 01/01/18) ROS General: YES: Fatigue PSYCHOLOGICAL ROS: YES: Anxiety, Concentration difficultie, Irritablity, Sleep disturbances Eyes: No Blurry vision, No Decreased vision, No Double vision, No Dry eyes, No Excessive tearing, No Eye Pain, No Itchy Eyes, No Loss of vision, No Photophobia , No Scotomata, No Uses contacts, No Uses glasses, No Other HEENT: YES: [place] Respiratory: YES: Cough; No: Hemoptysis, Orthopnea, Pleuritic Pain, Shortness of breath, SOB with excertion, Sputum Changes, Stridor, Tachypnea, Wheezing, Other Cardiovascular: yes Chest Pain; No Palpitations, No Orthopnea, No Paroxysmal Noc. Dyspnea, No Edema, No Lt Headedness, No Other Gastrointestinal: Yes Nausea; No Vomiting, No Abdominal Pain, No Diarrhea, No Constipation, No Melena, No Hematochezia, No Other Genitourinary: No Dysuria, No Frequency, No Incontinence, No Hematuria, No Retention, No Discharge, No Urgency, No Pain, No Flank Pain, No Other, No , No , No , No , No , No , No Musculoskeletal: Yes Joint Pain; No Gait Disturbance, No Joint Stiffness, No Joint Swelling, No Muscle Pain, No Muscular Weakness, No Pain In:, No Swelling In:, No Other Neurological: Yes Headaches, Yes Numbness/Tingling, Yes Seizures, Yes Weakness (left hand); No Behavorial Changes, No Bowel/Bladder ControlChng, No Confusion, No Dizziness, No Gait Disturbance, No Impaired Coord/balance, No Memory Loss, No Speech Problems, No Tremors, No Visual Changes, No Other Skin: No Dry Skin, No Eczema, No Hair Changes, No Lumps, No Mole Changes, No Mottling, No Nail Changes, No Pruritus, No Rash, No Skin Lesion Changes, No Other, No Acne Physical Exam General: Alert, Oriented X3, Cooperative, moderate distress, severe distress Lungs: Clear to auscultation Heart: S1S2, no gallops, murmurs (regurg) Abdomen: Normal bowel sounds, Soft Extremities: No cyanosis Skin: No breakdown Neuro: Normal speech, Normal tone, Cranial nerves 3-12 NL Psych/Mental Status: Mood NL, Other (anxiety, distress) Vitals Vitals Vital Signs Date Time Temp Pulse Resp B/P (MAP) Pulse Ox O2 Delivery O2 Flow Rate FiO2 08/07/18 12:57 Room Air 08/07/18 12:32 97.9 89 22 173/105 (127) 99 97.9 Labs Labs Laboratory Tests Test 08/07/18 12:47 08/07/18 12:57 08/07/18 13:00 08/07/18 13:02 White Blood Count 8.3 x10^3/uL (4.0-11.0) Red Blood Count 4.91 x10^6/uL (3.50-5.40) Hemoglobin 13.6 g/dL (12.0-15.5) Hematocrit 41.7 % (36.0-47.0) Mean Corpuscular Volume 85 fL (79-100) Mean Corpuscular Hemoglobin 28 pg (25-35) Mean Corpuscular Hemoglobin Concent 33 g/dL (31-37) Red Cell Distribution Width 15.1 % (11.5-14.5) Platelet Count 409 x10^3/uL (140-400) Neutrophils (%) (Auto) 51 % (31-73) Lymphocytes (%) (Auto) 41 % (24-48) Monocytes (%) (Auto) 5 % (0-9) Eosinophils (%) (Auto) 2 % (0-3) Basophils (%) (Auto) 1 % (0-3) Neutrophils # (Auto) 4.3 x10^3uL (1.8-7.7) Lymphocytes # (Auto) 3.4 x10^3/uL (1.0-4.8) Monocytes # (Auto) 0.4 x10^3/uL (0.0-1.1) Eosinophils # (Auto) 0.2 x10^3/uL (0.0-0.7) Basophils # (Auto) 0.1 x10^3/uL (0.0-0.2) Prothrombin Time 13.0 SEC (11.7-14.0) Prothromb Time International Ratio 1.0 (0.8-1.1) Sodium Level 139 mmol/L (136-145) Potassium Level 3.2 mmol/L (3.5-5.1) Chloride Level 102 mmol/L (98-107) Carbon Dioxide Level 24 mmol/L (21-32) Anion Gap 13 (6-14) Blood Urea Nitrogen 6 mg/dL (7-20) Creatinine 0.7 mg/dL (0.6-1.0) Estimated GFR (Cockcroft-Gault) 90.5 BUN/Creatinine Ratio 9 (6-20) Glucose Level 98 mg/dL (70-99) Calcium Level 9.4 mg/dL (8.5-10.1) Magnesium Level 1.9 mg/dL (1.8-2.4) Total Bilirubin 0.7 mg/dL (0.2-1.0) Aspartate Amino Transf (AST/SGOT) 25 U/L (15-37) Alanine Aminotransferase (ALT/SGPT) 11 U/L (14-59) Alkaline Phosphatase 116 U/L (46-116) Creatine Kinase 59 U/L (26-192) Creatine Kinase MB (Mass) < 0.5 ng/mL (0.0-3.6) Creatine Kinase MB Relative Index % (0-4) Troponin I Quantitative < 0.017 ng/mL (0.000-0.055) WK-Epi-L-Type Natriuretic Peptide 2683 pg/mL (0-124) Total Protein 7.5 g/dL (6.4-8.2) Albumin 3.4 g/dL (3.4-5.0) Albumin/Globulin Ratio 0.8 (1.0-1.7) Lipase 73 U/L (73-393) O2 Saturation 95 % (92-99) Arterial Blood pH 7.57 (7.35-7.45) Arterial Blood pCO2 at Patient Temp 27 mmHg (35-46) Arterial Blood pO2 at Patient Temp 70 mmHg (75-108) Arterial Blood HCO3 24 mmol/L (21-28) Arterial Blood Base Excess 3 mmol/L (-3-3) FiO2 21 Urine Collection Type Unknown Urine Color Yellow Urine Clarity Clear Urine pH 6.5 Urine Specific [place] >=1.030 Urine Protein 30 mg/dL (NEG-TRACE) Urine Glucose (UA) Negative mg/dL (NEG) Urine Ketones (Stick) Trace mg/dL (NEG) Urine Blood Negative (NEG) Urine Nitrite Negative (NEG) Urine Bilirubin Small (NEG) Urine Urobilinogen Dipstick 1.0 mg/dL (0.2 mg/dL) Urine Leukocyte Esterase Negative (NEG) Urine RBC 1-2 /HPF (0-2) Urine WBC 1-4 /HPF (0-4) Urine Squamous Epithelial Cells Mod /LPF Urine Bacteria Many /HPF (0-FEW) Urine Mucus Marked /LPF Urine Opiates Screen Pos (NEG) Urine Methadone Screen Neg (NEG) Urine Barbiturates Neg (NEG) Urine Phencyclidine Screen Neg (NEG) Urine Amphetamine/Methamphetamine Neg (NEG) Urine Benzodiazepines Screen Pos (NEG) Urine Cocaine Screen Neg (NEG) Urine Cannabinoids Screen Pos (NEG) Urine Ethyl Alcohol Neg (NEG) Bedside Urine HCG, Qualitative Hcg negative (Negative) Laboratory Tests Test 08/07/18 12:47 08/07/18 12:57 08/07/18 13:00 08/07/18 13:02 White Blood Count 8.3 x10^3/uL (4.0-11.0) Red Blood Count 4.91 x10^6/uL (3.50-5.40) Hemoglobin 13.6 g/dL (12.0-15.5) Hematocrit 41.7 % (36.0-47.0) Mean Corpuscular Volume 85 fL (79-100) Mean Corpuscular Hemoglobin 28 pg (25-35) Mean Corpuscular Hemoglobin Concent 33 g/dL (31-37) Red Cell Distribution Width 15.1 % (11.5-14.5) Platelet Count 409 x10^3/uL (140-400) Neutrophils (%) (Auto) 51 % (31-73) Lymphocytes (%) (Auto) 41 % (24-48) Monocytes (%) (Auto) 5 % (0-9) Eosinophils (%) (Auto) 2 % (0-3) Basophils (%) (Auto) 1 % (0-3) Neutrophils # (Auto) 4.3 x10^3uL (1.8-7.7) Lymphocytes # (Auto) 3.4 x10^3/uL (1.0-4.8) Monocytes # (Auto) 0.4 x10^3/uL (0.0-1.1) Eosinophils # (Auto) 0.2 x10^3/uL (0.0-0.7) Basophils # (Auto) 0.1 x10^3/uL (0.0-0.2) Prothrombin Time 13.0 SEC (11.7-14.0) Prothromb Time International Ratio 1.0 (0.8-1.1) Sodium Level 139 mmol/L (136-145) Potassium Level 3.2 mmol/L (3.5-5.1) Chloride Level 102 mmol/L (98-107) Carbon Dioxide Level 24 mmol/L (21-32) Anion Gap 13 (6-14) Blood Urea Nitrogen 6 mg/dL (7-20) Creatinine 0.7 mg/dL (0.6-1.0) Estimated GFR (Cockcroft-Gault) 90.5 BUN/Creatinine Ratio 9 (6-20) Glucose Level 98 mg/dL (70-99) Calcium Level 9.4 mg/dL (8.5-10.1) Magnesium Level 1.9 mg/dL (1.8-2.4) Total Bilirubin 0.7 mg/dL (0.2-1.0) Aspartate Amino Transf (AST/SGOT) 25 U/L (15-37) Alanine Aminotransferase (ALT/SGPT) 11 U/L (14-59) Alkaline Phosphatase 116 U/L (46-116) Creatine Kinase 59 U/L (26-192) Creatine Kinase MB (Mass) < 0.5 ng/mL (0.0-3.6) Creatine Kinase MB Relative Index % (0-4) Troponin I Quantitative < 0.017 ng/mL (0.000-0.055) LC-Mrb-T-Type Natriuretic Peptide 2683 pg/mL (0-124) Total Protein 7.5 g/dL (6.4-8.2) Albumin 3.4 g/dL (3.4-5.0) Albumin/Globulin Ratio 0.8 (1.0-1.7) Lipase 73 U/L (73-393) O2 Saturation 95 % (92-99) Arterial Blood pH 7.57 (7.35-7.45) Arterial Blood pCO2 at Patient Temp 27 mmHg (35-46) Arterial Blood pO2 at Patient Temp 70 mmHg (75-108) Arterial Blood HCO3 24 mmol/L (21-28) Arterial Blood Base Excess 3 mmol/L (-3-3) FiO2 21 Urine Collection Type Unknown Urine Color Yellow Urine Clarity Clear Urine pH 6.5 Urine Specific [place] >=1.030 Urine Protein 30 mg/dL (NEG-TRACE) Urine Glucose (UA) Negative mg/dL (NEG) Urine Ketones (Stick) Trace mg/dL (NEG) Urine Blood Negative (NEG) Urine Nitrite Negative (NEG) Urine Bilirubin Small (NEG) Urine Urobilinogen Dipstick 1.0 mg/dL (0.2 mg/dL) Urine Leukocyte Esterase Negative (NEG) Urine RBC 1-2 /HPF (0-2) Urine WBC 1-4 /HPF (0-4) Urine Squamous Epithelial Cells Mod /LPF Urine Bacteria Many /HPF (0-FEW) Urine Mucus Marked /LPF Urine Opiates Screen Pos (NEG) Urine Methadone Screen Neg (NEG) Urine Barbiturates Neg (NEG) Urine Phencyclidine Screen Neg (NEG) Urine Amphetamine/Methamphetamine Neg (NEG) Urine Benzodiazepines Screen Pos (NEG) Urine Cocaine Screen Neg (NEG) Urine Cannabinoids Screen Pos (NEG) Urine Ethyl Alcohol Neg (NEG) Bedside Urine HCG, Qualitative Hcg negative (Negative) VTE Prophylaxis Ordered VTE Prophylaxis Devices: No VTE Pharmacological Prophylaxi: Yes Assessment/Plan Assessment/Plan 1. acute and severe chest pain, atypical, but reproducible and 10/10, admit, consult CV 2. Acute CHF with diastolic dysfunction: l 3. anxiety disorder 4. HTN: controlled currently 5. Tobaccoism and THC abuse 6. Hx of seizure: on keppra 500 BID CATHY CHAMBERS MD Aug 07, 2018 15:18
[2018-08-07] MEDS ORDERED: GABA-689 PO (15:49)
[2018-08-07] MEDS ORDERED: FURO-68 PO (15:49)
[2018-08-07] MEDS ORDERED: ZOLP10TA PO (15:49)
[2018-08-07] MEDS ORDERED: LEVE500T56 PO (15:49)
[2018-08-07] MEDS ORDERED: LISI2.5T PO (15:49)
[2018-08-07] MEDS ORDERED: ENOXAPARIN 40 MG/0.4 ML SYRINGE. SQ SCH (16:00)
[2018-08-07 16:07] VITALS: BP 168/89
[2018-08-07] MEDS ORDERED: diazePAM 5 MG TABLET PO PRN (16:15)
[2018-08-07] MEDS ORDERED: FUROSEMIDE 40 MG TABLET. PO PRN (16:15)
[2018-08-07] MEDS ORDERED: traMADol 50 MG TABLET PO PRN (16:15)
[2018-08-07] MEDS: MORPHINE SULFATE 4 MG/ML VIAL. IV PRN ×2 (16:20→22:56)
[2018-08-07] MEDS: LIDOCAINE (700MG/PATCH) PATCH. TD SCH (16:23)
[2018-08-07] MEDS ORDERED: ONDANSETRON ODT 4 MG TAB.RAPDIS. PO PRN (16:30)
[2018-08-07] MEDS ORDERED: ZOLPIDEM 5 MG TABLET. PO PRN (16:30)
[2018-08-07] MEDS: oxyCODONE/APAP 5/325 1 TAB TABLET PO PRN (17:44)
[2018-08-07 19:00] VITALS: BP 152/101
[2018-08-07] MEDS: CYCLOBENZAPRINE 10 MG TABLET. PO SCH (20:33)
--- NOTE | 2018-08-07 20:36 | EEG ---
DATE OF SERVICE: 08/07/2018 EEG NUMBER: [id number]. OBJECTIVE: This is a 43-year-old female patient with history of seizure. EEG was requested to evaluate seizure activity. METHODS: Twenty electrodes were applied according to the international 10-20 electrode placement system. EKG monitoring, hyperventilation, intermittent photic stimulation, monopolar and bipolar montages are routinely utilized. The record was obtained on a digital system with video monitoring. FINDINGS: 1. Background: The patient was recorded in the awake and drowsy states. No actual sleep state was recorded. The overall background amplitude is 5-10 microvolts. No clear posterior dominant rhythm is observed. The overall background rhythm is with fast activity in the Beta frequencies throughout the entire recording. 2. Abnormalities: No specific epileptiform discharge or electrographic seizure is seen. No focal or diffuse slowing. The overall background rhythm is with fast activity in the Beta frequency. 3. Activation: Hyperventilation was performed with good efforts and normal response. Intermittent photic stimulation was performed with photic driving. No specific epileptiform discharge or electrographic seizure induced by hyperventilation or intermittent photic stimulation. IMPRESSION: This EEG is a borderline study for the awake and drowsy states. No sleep state was recorded. The overall background rhythm is with fast activity in the Beta frequency. No focal, lateralizing, specific epileptiform discharge or electrographic seizure is seen. Suggest repeat EEG if she has further seizure. VALERY MORRISSEY MD DR: MOHINDER/winston JOB#: [id number] / [id number] PEDRO PABLO
--- NOTE | 2018-08-07 20:43 | PDOC2 ---
NEUROLOGY CONSULT Date of Admission Date of Admission DATE: 08/07/18 TIME: 20:29 Reason for Consult Reason for Consult: IMPRESSION: Seizure. Numbness. Chest pain. HTN. Cannabinoids positive. Benzo positive. Opiates positive. RECOMMENDATIONS/PLAN: Continue Keppra 500 mg bid. Neurontin 400 mg tid. HCT. Treat medical and cardiac diseases. EEG on 08/07/18: No seizure activity. HISTORY OF THE PRESENT ILLNESS: This is a 43-year-old female patient who was admit due to acute chest pain that is sharp, tearing anterior chest pain with radiation to her back which has been present for the past few days. She has been seeing Dr. Lawson, she was supposed to f.u with CV team for CHF and mitral regurg per their last note. She had ER visit for atypical chest pain 2 months ago and was sent home. She reports left facial tingling and left hand numbness, and that her right hand is cold. Complained 10/10 chest pain "like I am being stabbed in the upper chest" pain to her back, CT angio done before my eval and read by me and Dr. García, no dissection seen. She stated she had seizures for about 10 years several seizures each year. No seizure recently. Past Medical History Cardiovascular: CHF, HTN Pulmonary: No pertinent hx CENTRAL NERVOUS SYSTEM: Seizure GI: GERD Hepatobiliary: Cholelithiasis Psych: Anxiety, Depression, Other Musculoskeletal: Osteoarthritis, Other Rheumatologic: Fibromyalgia Infectious disease: No pertinent hx Renal/: Other Endocrine: Other Past Surgical History No major surgery recently. Family History Cancer, Hypertension ALLERGY: NKDA MEDICATIONS: Refer to [facility] FAMILY HISTORY: HTN, HLD, DM, CAD, PD, Dementia, Non contributory. SOCIAL HISTORY: Lives at home. Denies drinking,. She uses marijuana.. She smokes < 1 pack of cigarettes a day for many years. REVIEW OF SYSTEMS: Constitutional: No malnutrition, weight loss, cachexia. Head: No traumatic brain or head injury. Skin: No edema, or rash. Ear: No infection, tinnitus. Eyes: No vision loss or color blindness. Nose: No bleeding or purulent discharges. Hearing: No hearing decrease. Neck: No injury. Breast: No history of cancer, masses,or discharges. Cardiac: HTN. Pulmonary: Smoking.. GI: No GI ulcer, GI bleeding. Urinary/genital: UTI. Endocrinologic: No cousin face, craniofacial dysmorphism, polydactyly, goiter. Skeletomuscular: No muscular atrophy, deformity. Neurological: see HP. Psychiatric: Denies drug use/abuse. Otherwise, not [id number] review of systems. PHYSICAL EXAMINATION: General appearance is in no acute distress. HEENT: Normocephalic and nontraumatic. Eyes, nose, ears, and throat are unremarkable. Neck is supple. No lymphadenopathy. No crepitus. Cardiovascular: S1, S2, regular rate and rhythm. Pulmonary: Clear to auscultation bilaterally. Abdomen: Bowel sounds are positive. Abdomen is soft, nontender, and nondistended. Extremities: No rash, lesions, or edema. No restriction of range of motion NEUROLOGICAL EXAMINATION: Alert Oriented to time, place and person. PERRL. EOMI. CN: no focal findings. Muscle tone: within normal. Muscle strength: 5 DTR: 2 Plantar reflex: Flexor response bilaterally Gait: not examined in bed. Sensory exam: no abnormal findings. No cerebellar signs elicited. F-T-N test accurate. Current Medications Current Medications Current Medications Aspirin (Children'S Aspirin) 324 mg 1X ONCE PO Last administered on 08/07/18at 13:26; Start 08/07/18 at 12:45; Stop 08/07/18 at 12:49; Status DC Morphine Sulfate (Morphine Sulfate) 2 mg 1X ONCE IV Last administered on at 13:26; Start 08/07/18 at 12:45; Stop 08/07/18 at 12:49; Status DC Labetalol HCl (Normodyne Iv Push) 20 mg 1X ONCE IVP ; Start 08/07/18 at 13:00; Stop 08/07/18 at 13:01; Status DC Iohexol (Omnipaque 350 Mg/ml) 75 ml 1X ONCE IV Last administered on 08/07/18at 13:41; Start 08/07/18 at 13:30; Stop 08/07/18 at 13:31; Status DC Info (CONTRAST GIVEN -- Rx MONITORING) 1 each PRN DAILY PRN MC SEE COMMENTS; Start 08/07/18 at 13:45; Stop 08/09/18 at 13:44 Lorazepam (Ativan) 1 mg 1X ONCE IV Last administered on 08/07/18at 15:00; Start 08/07/18 at 14:45; Stop 08/07/18 at 14:46; Status DC Lidocaine (Lidoderm) 1 patch DAILY TD Last administered on 08/07/18at 16:23; Start 08/07/18 at 15:15 Miscellaneous (Lidoderm Patch Removal) 1 ea QHS MC ; Start 08/07/18 at 21:00 Enoxaparin Sodium (Lovenox Per Pharmacy Prophylaxis Dosing) 1 each PRN DAILY PRN MC SEE COMMENTS; Start 08/07/18 at 15:15 Potassium Chloride (Klor-Con) 40 meq 1X ONCE PO Last administered on at 16:24; Start 08/07/18 at 15:15; Stop 08/07/18 at 15:19; Status DC Enoxaparin Sodium (Lovenox 40mg Syringe) 40 mg Q24H SQ Last administered on at 16:24; Start 08/07/18 at 16:00 Morphine Sulfate (Morphine Sulfate) 4 mg PRN QID PRN IV PAIN Last administered on 08/07/18at 16:20; Start 08/07/18 at 16:15 Oxycodone/ Acetaminophen (Percocet 5/325) 1 tab PRN Q4HRS PRN PO MODERATE PAIN Last administered on 08/07/18at 17:44; Start 08/07/18 at 16:15 Cyclobenzaprine HCl (Flexeril) 10 mg TID PO ; Start 08/07/18 at 21:00 Diazepam (Valium) 5 mg PRN BID PRN PO ANXIETY / AGITATION; Start 08/07/18 at 16 :15 Furosemide (Lasix) 40 mg PRN DAILY PRN PO SHORTNESS OF BREATH Last administered on 08/07/18at 16:24; Start 08/07/18 at 16:15 Gabapentin (Neurontin) 400 mg TID PO ; Start 08/07/18 at 21:00 Levetiracetam (Keppra) 500 mg BID PO ; Start 08/07/18 at 21:00 Metoprolol Tartrate (Lopressor) 12.5 mg BID PO ; Start 08/07/18 at 21:00 Potassium Chloride (Klor-Con) 20 meq DAILYWBKFT PO ; Start 08/08/18 at 08:00 Tramadol HCl (Ultram) 50 mg PRN Q6HRS PRN PO MILD TO MODERATE PAIN; Start 08/07 at 16:15 Lisinopril (Prinivil) 2.5 mg DAILY PO ; Start 08/08/18 at 09:00 Ondansetron HCl (Zofran Odt) 4 mg PRN TID PRN PO NAUSEA/VOMITING; Start at 16:30 Paroxetine HCl (Paxil) 20 mg DAILY PO ; Start 08/08/18 at 09:00 Zolpidem Tartrate (Ambien) 5 mg PRN QHS PRN PO INSOMNIA; Start 08/07/18 at 16: 30 Active Scripts Active Tramadol Hcl 50 Mg Tablet 50 Mg PO Q6HRS PRN Zofran (Ondansetron Hcl) 4 Mg Tablet 4 Mg PO PRN TID PRN nausea/vomiting Klor-Con M20 (Potassium Chloride) 20 Meq Tab.er.prt 20 Meq PO DAILYWBKFT MDD 1 while on lasix Metoprolol Tartrate 25 Mg Tablet 12.5 Mg PO BID MDD 1 Reported Lisinopril 2.5 Mg Tablet 2.5 Mg PO DAILY Keppra (Levetiracetam) 500 Mg Tablet 500 Mg PO BID Gabapentin (Gabapentin) 400 Mg Capsule 400 Mg PO TID Lasix (Furosemide) 40 Mg Tablet 40 Mg PO PRN DAILY PRN Ambien (Zolpidem Tartrate) 10 Mg Tablet 10 Mg PO HS PRN Paxil (Paroxetine Hcl) 20 Mg Tablet 1 Tab PO DAILY Valium (Diazepam) 5 Mg Tablet 5 Mg PO PRN BID PRN Cyclobenzaprine Hcl 10 Mg Tablet 10 Mg PO TID Allergies Allergies: Allergies Coded Allergies Type Severity Reaction Last Updated Verified No Known Drug Allergies 01/01/18 No ROS Review of System The patient denies any associated fevers, chills, headache, ear pain, rhinorrhea , sore throat, stiff neck, productive cough, chest pain, shortness of breath, back or flank pain, abdominal pain, nausea, vomiting, diarrhea, constipation, dysuria, rash, numbness, weakness, tingling, incontinence, difficulty ambulating, or diaphoresis. Physical Exam Physical Exam General: Well developed, well nourished, no acute distress, well appearing HEENT: Pupils equally round and reactive to light, EOMI, no discharge, normal conjunctiva Neck: Supple, no nuchal rigidity, no JVD, trachea midline, no tenderness Cardiac: RRR, no murmurs, no gallops, no rubs Chest/Lungs: CTAB, no wheeze, no rhonchi, no crackles Abdomen: soft, non-distended, no guarding, no peritoneal signs, non-tender Back: No tenderness Extremities: no edema, pulses intact, non-tender,capillary refill <3 sec bilateral upper and lower extremities, Neuro: Alert and oriented x 4, no focal deficits, normal speech Vitals Vitals: Vital Signs Date Time Temp Pulse Resp B/P (MAP) Pulse Ox O2 Delivery O2 Flow Rate FiO2 08/07/18 20:04 Room Air 08/07/18 20:03 99 08/07/18 19:00 98.1 79 20 152/101 (118) 98.1 Labs Labs Laboratory Tests Test 08/07/18 12:47 08/07/18 12:57 08/07/18 13:00 08/07/18 13:02 White Blood Count 8.3 x10^3/uL (4.0-11.0) Red Blood Count 4.91 x10^6/uL (3.50-5.40) Hemoglobin 13.6 g/dL (12.0-15.5) Hematocrit 41.7 % (36.0-47.0) Mean Corpuscular Volume 85 fL (79-100) Mean Corpuscular Hemoglobin 28 pg (25-35) Mean Corpuscular Hemoglobin Concent 33 g/dL (31-37) Red Cell Distribution Width 15.1 % (11.5-14.5) Platelet Count 409 x10^3/uL (140-400) Neutrophils (%) (Auto) 51 % (31-73) Lymphocytes (%) (Auto) 41 % (24-48) Monocytes (%) (Auto) 5 % (0-9) Eosinophils (%) (Auto) 2 % (0-3) Basophils (%) (Auto) 1 % (0-3) Neutrophils # (Auto) 4.3 x10^3uL (1.8-7.7) Lymphocytes # (Auto) 3.4 x10^3/uL (1.0-4.8) Monocytes # (Auto) 0.4 x10^3/uL (0.0-1.1) Eosinophils # (Auto) 0.2 x10^3/uL (0.0-0.7) Basophils # (Auto) 0.1 x10^3/uL (0.0-0.2) Prothrombin Time 13.0 SEC (11.7-14.0) Prothromb Time International Ratio 1.0 (0.8-1.1) Sodium Level 139 mmol/L (136-145) Potassium Level 3.2 mmol/L (3.5-5.1) Chloride Level 102 mmol/L (98-107) Carbon Dioxide Level 24 mmol/L (21-32) Anion Gap 13 (6-14) Blood Urea Nitrogen 6 mg/dL (7-20) Creatinine 0.7 mg/dL (0.6-1.0) Estimated GFR (Cockcroft-Gault) 90.5 BUN/Creatinine Ratio 9 (6-20) Glucose Level 98 mg/dL (70-99) Calcium Level 9.4 mg/dL (8.5-10.1) Magnesium Level 1.9 mg/dL (1.8-2.4) Total Bilirubin 0.7 mg/dL (0.2-1.0) Aspartate Amino Transf (AST/SGOT) 25 U/L (15-37) Alanine Aminotransferase (ALT/SGPT) 11 U/L (14-59) Alkaline Phosphatase 116 U/L (46-116) Creatine Kinase 59 U/L (26-192) Creatine Kinase MB (Mass) < 0.5 ng/mL (0.0-3.6) Creatine Kinase MB Relative Index % (0-4) Troponin I Quantitative < 0.017 ng/mL (0.000-0.055) BL-[id number]-[id number]-Type Natriuretic Peptide 2683 pg/mL (0-124) Total Protein 7.5 g/dL (6.4-8.2) Albumin 3.4 g/dL (3.4-5.0) Albumin/Globulin Ratio 0.8 (1.0-1.7) Lipase 73 U/L (73-393) Vitamin B12 Level 329 pg/mL (247-911) Thyroid Stimulating Hormone (TSH) 1.232 uIU/mL (0.358-3.74) O2 Saturation 95 % (92-99) Arterial Blood pH 7.57 (7.35-7.45) Arterial Blood pCO2 at Patient Temp 27 mmHg (35-46) Arterial Blood pO2 at Patient Temp 70 mmHg (75-108) Arterial Blood HCO3 24 mmol/L (21-28) Arterial Blood Base Excess 3 mmol/L (-3-3) FiO2 21 Urine Collection Type Unknown Urine Color Yellow Urine Clarity Clear Urine pH 6.5 Urine Specific [place] >=1.030 Urine Protein 30 mg/dL (NEG-TRACE) Urine Glucose (UA) Negative mg/dL (NEG) Urine Ketones (Stick) Trace mg/dL (NEG) Urine Blood Negative (NEG) Urine Nitrite Negative (NEG) Urine Bilirubin Small (NEG) Urine Urobilinogen Dipstick 1.0 mg/dL (0.2 mg/dL) Urine Leukocyte Esterase Negative (NEG) Urine RBC 1-2 /HPF (0-2) Urine WBC 1-4 /HPF (0-4) Urine Squamous Epithelial Cells Mod /LPF Urine Bacteria Many /HPF (0-FEW) Urine Mucus Marked /LPF Urine Opiates Screen Pos (NEG) Urine Methadone Screen Neg (NEG) Urine Barbiturates Neg (NEG) Urine Phencyclidine Screen Neg (NEG) Urine Amphetamine/Methamphetamine Neg (NEG) Urine Benzodiazepines Screen Pos (NEG) Urine Cocaine Screen Neg (NEG) Urine Cannabinoids Screen Pos (NEG) Urine Ethyl Alcohol Neg (NEG) Bedside Urine HCG, Qualitative Hcg negative (Negative) Laboratory Tests Test 08/07/18 12:47 08/07/18 12:57 08/07/18 13:00 08/07/18 13:02 White Blood Count 8.3 x10^3/uL (4.0-11.0) Red Blood Count 4.91 x10^6/uL (3.50-5.40) Hemoglobin 13.6 g/dL (12.0-15.5) Hematocrit 41.7 % (36.0-47.0) Mean Corpuscular Volume 85 fL (79-100) Mean Corpuscular Hemoglobin 28 pg (25-35) Mean Corpuscular Hemoglobin Concent 33 g/dL (31-37) Red Cell Distribution Width 15.1 % (11.5-14.5) Platelet Count 409 x10^3/uL (140-400) Neutrophils (%) (Auto) 51 % (31-73) Lymphocytes (%) (Auto) 41 % (24-48) Monocytes (%) (Auto) 5 % (0-9) Eosinophils (%) (Auto) 2 % (0-3) Basophils (%) (Auto) 1 % (0-3) Neutrophils # (Auto) 4.3 x10^3uL (1.8-7.7) Lymphocytes # (Auto) 3.4 x10^3/uL (1.0-4.8) Monocytes # (Auto) 0.4 x10^3/uL (0.0-1.1) Eosinophils # (Auto) 0.2 x10^3/uL (0.0-0.7) Basophils # (Auto) 0.1 x10^3/uL (0.0-0.2) Prothrombin Time 13.0 SEC (11.7-14.0) Prothromb Time International Ratio 1.0 (0.8-1.1) Sodium Level 139 mmol/L (136-145) Potassium Level 3.2 mmol/L (3.5-5.1) Chloride Level 102 mmol/L (98-107) Carbon Dioxide Level 24 mmol/L (21-32) Anion Gap 13 (6-14) Blood Urea Nitrogen 6 mg/dL (7-20) Creatinine 0.7 mg/dL (0.6-1.0) Estimated GFR (Cockcroft-Gault) 90.5 BUN/Creatinine Ratio 9 (6-20) Glucose Level 98 mg/dL (70-99) Calcium Level 9.4 mg/dL (8.5-10.1) Magnesium Level 1.9 mg/dL (1.8-2.4) Total Bilirubin 0.7 mg/dL (0.2-1.0) Aspartate Amino Transf (AST/SGOT) 25 U/L (15-37) Alanine Aminotransferase (ALT/SGPT) 11 U/L (14-59) Alkaline Phosphatase 116 U/L (46-116) Creatine Kinase 59 U/L (26-192) Creatine Kinase MB (Mass) < 0.5 ng/mL (0.0-3.6) Creatine Kinase MB Relative Index % (0-4) Troponin I Quantitative < 0.017 ng/mL (0.000-0.055) DI-Xqv-I-Type Natriuretic Peptide 2683 pg/mL (0-124) Total Protein 7.5 g/dL (6.4-8.2) Albumin 3.4 g/dL (3.4-5.0) Albumin/Globulin Ratio 0.8 (1.0-1.7) Lipase 73 U/L (73-393) Vitamin B12 Level 329 pg/mL (247-911) Thyroid Stimulating Hormone (TSH) 1.232 uIU/mL (0.358-3.74) O2 Saturation 95 % (92-99) Arterial Blood pH 7.57 (7.35-7.45) Arterial Blood pCO2 at Patient Temp 27 mmHg (35-46) Arterial Blood pO2 at Patient Temp 70 mmHg (75-108) Arterial Blood HCO3 24 mmol/L (21-28) Arterial Blood Base Excess 3 mmol/L (-3-3) FiO2 21 Urine Collection Type Unknown Urine Color Yellow Urine Clarity Clear Urine pH 6.5 Urine Specific [place] >=1.030 Urine Protein 30 mg/dL (NEG-TRACE) Urine Glucose (UA) Negative mg/dL (NEG) Urine Ketones (Stick) Trace mg/dL (NEG) Urine Blood Negative (NEG) Urine Nitrite Negative (NEG) Urine Bilirubin Small (NEG) Urine Urobilinogen Dipstick 1.0 mg/dL (0.2 mg/dL) Urine Leukocyte Esterase Negative (NEG) Urine RBC 1-2 /HPF (0-2) Urine WBC 1-4 /HPF (0-4) Urine Squamous Epithelial Cells Mod /LPF Urine Bacteria Many /HPF (0-FEW) Urine Mucus Marked /LPF Urine Opiates Screen Pos (NEG) Urine Methadone Screen Neg (NEG) Urine Barbiturates Neg (NEG) Urine Phencyclidine Screen Neg (NEG) Urine Amphetamine/Methamphetamine Neg (NEG) Urine Benzodiazepines Screen Pos (NEG) Urine Cocaine Screen Neg (NEG) Urine Cannabinoids Screen Pos (NEG) Urine Ethyl Alcohol Neg (NEG) Bedside Urine HCG, Qualitative Hcg negative (Negative) VALERY MORRISSEY MD Aug 07, 2018 20:43
[2018-08-07] MEDS ORDERED: PATCH REMOVAL. MC SCH (21:00)
[2018-08-07] MEDS: GABAPENTIN 400 MG CAPSULE. PO SCH (22:55)
[2018-08-07] MEDS: levETIRAcetam 500 MG TABLET PO SCH (22:55)
[2018-08-07] MEDS: METOPROLOL TART IMMED RELEASE 25 MG TABLET. PO SCH (22:56)
[2018-08-07 23:00] VITALS: BP 126/77
[2018-08-08] MEDS: oxyCODONE/APAP 5/325 1 TAB TABLET PO PRN ×2 (02:20→08:22)
[2018-08-08 03:00] VITALS: BP 122/81
[2018-08-08] MEDS: MORPHINE SULFATE 4 MG/ML VIAL. IV PRN ×2 (05:15→11:38)
[2018-08-08 07:00] VITALS: BP 149/97
[2018-08-08] MEDS ORDERED: POTASSIUM CHLORIDE 20 MEQ TABLET.ER. PO SCH (08:00)
[2018-08-08] MEDS: levETIRAcetam 500 MG TABLET PO SCH (08:19)
[2018-08-08] MEDS: CYCLOBENZAPRINE 10 MG TABLET. PO SCH (08:19)
[2018-08-08] MEDS: GABAPENTIN 400 MG CAPSULE. PO SCH (08:21)
[2018-08-08] MEDS: METOPROLOL TART IMMED RELEASE 25 MG TABLET. PO SCH (08:21)
[2018-08-08] MEDS: LIDOCAINE (700MG/PATCH) PATCH. TD SCH (08:25)
--- NOTE | 2018-08-08 08:32 | RAD ---
CT of the head without contrast, 08/08/2018: HISTORY: Left-sided numbness and tingling Comparison is made to a study from 05/26/2018. The ventricles are within normal limits in size. There is no shift of the midline structures. There is no evidence of acute intracranial hemorrhage or mass effect. IMPRESSION: No acute intracranial abnormality is detected. PQRS Compliance Statement: One or more of the following individualized dose reduction techniques were utilized for this examination: 1. Automated exposure control 2. Adjustment of the mA and/or kV according to patient size 3. Use of iterative reconstruction technique Electronically signed by: Juan Miguel Rodriguez MD (08/08/2018 8:29 AM) [facility]
[2018-08-08] MEDS ORDERED: PARoxetine 20 MG TABLET PO SCH (09:00)
[2018-08-08] MEDS ORDERED: LISINOPRIL 5 MG TABLET. PO SCH (09:00)
[2018-08-08 11:00] VITALS: BP 112/74
[2018-08-08] MEDS ORDERED: ASPI325T8 PO (11:35)
--- NOTE | 2018-08-08 11:39 | PDOC3 ---
Discharge Summary Visit Information Date of Admission: Aug 07, 2018 Date of Discharge: Aug 08, 2018 Admitting Diagnosis Comment: knOWN Seizure. Numbness. on gabapentin Chest pain. neg CT chest, non cardiac, MSK HTN. Cannabinoids positive. Benzo positive. Opiates positive. ANxiety NOS Depression NOS NArc tolerant Final Diagnosis Problems Medical Problems: (1) Abnormal EKG Status: Acute (2) Anxiety Status: Acute Brief Hospital Course Allergies Allergies Coded Allergies Type Severity Reaction Last Updated Verified No Known Drug Allergies 01/01/18 No Vital Signs Vital Signs Date Time Temp Pulse Resp B/P (MAP) Pulse Ox O2 Delivery O2 Flow Rate FiO2 08/08/18 09:22 99 Room Air 08/08/18 08:21 75 149/97 08/08/18 07:00 97.5 17 97.5 Lab Results Laboratory Tests Test 08/07/18 12:47 08/07/18 12:57 08/07/18 13:00 08/07/18 13:02 White Blood Count 8.3 x10^3/uL (4.0-11.0) Red Blood Count 4.91 x10^6/uL (3.50-5.40) Hemoglobin 13.6 g/dL (12.0-15.5) Hematocrit 41.7 % (36.0-47.0) Mean Corpuscular Volume 85 fL (79-100) Mean Corpuscular Hemoglobin 28 pg (25-35) Mean Corpuscular Hemoglobin Concent 33 g/dL (31-37) Red Cell Distribution Width 15.1 % (11.5-14.5) Platelet Count 409 x10^3/uL (140-400) Neutrophils (%) (Auto) 51 % (31-73) Lymphocytes (%) (Auto) 41 % (24-48) Monocytes (%) (Auto) 5 % (0-9) Eosinophils (%) (Auto) 2 % (0-3) Basophils (%) (Auto) 1 % (0-3) Neutrophils # (Auto) 4.3 x10^3uL (1.8-7.7) Lymphocytes # (Auto) 3.4 x10^3/uL (1.0-4.8) Monocytes # (Auto) 0.4 x10^3/uL (0.0-1.1) Eosinophils # (Auto) 0.2 x10^3/uL (0.0-0.7) Basophils # (Auto) 0.1 x10^3/uL (0.0-0.2) Prothrombin Time 13.0 SEC (11.7-14.0) Prothromb Time International Ratio 1.0 (0.8-1.1) Sodium Level 139 mmol/L (136-145) Potassium Level 3.2 mmol/L (3.5-5.1) Chloride Level 102 mmol/L (98-107) Carbon Dioxide Level 24 mmol/L (21-32) Anion Gap 13 (6-14) Blood Urea Nitrogen 6 mg/dL (7-20) Creatinine 0.7 mg/dL (0.6-1.0) Estimated GFR (Cockcroft-Gault) 90.5 BUN/Creatinine Ratio 9 (6-20) Glucose Level 98 mg/dL (70-99) Calcium Level 9.4 mg/dL (8.5-10.1) Magnesium Level 1.9 mg/dL (1.8-2.4) Total Bilirubin 0.7 mg/dL (0.2-1.0) Aspartate Amino Transf (AST/SGOT) 25 U/L (15-37) Alanine Aminotransferase (ALT/SGPT) 11 U/L (14-59) Alkaline Phosphatase 116 U/L (46-116) Creatine Kinase 59 U/L (26-192) Creatine Kinase MB (Mass) < 0.5 ng/mL (0.0-3.6) Creatine Kinase MB Relative Index % (0-4) Troponin I Quantitative < 0.017 ng/mL (0.000-0.055) JZ-[id number]-Type Natriuretic Peptide 2683 pg/mL (0-124) Total Protein 7.5 g/dL (6.4-8.2) Albumin 3.4 g/dL (3.4-5.0) Albumin/Globulin Ratio 0.8 (1.0-1.7) Lipase 73 U/L (73-393) Vitamin B12 Level 329 pg/mL (247-911) Thyroid Stimulating Hormone (TSH) 1.232 uIU/mL (0.358-3.74) O2 Saturation 95 % (92-99) Arterial Blood pH 7.57 (7.35-7.45) Arterial Blood pCO2 at Patient Temp 27 mmHg (35-46) Arterial Blood pO2 at Patient Temp 70 mmHg (75-108) Arterial Blood HCO3 24 mmol/L (21-28) Arterial Blood Base Excess 3 mmol/L (-3-3) FiO2 21 Urine Collection Type Unknown Urine Color Yellow Urine Clarity Clear Urine pH 6.5 Urine Specific [place] >=1.030 Urine Protein 30 mg/dL (NEG-TRACE) Urine Glucose (UA) Negative mg/dL (NEG) Urine Ketones (Stick) Trace mg/dL (NEG) Urine Blood Negative (NEG) Urine Nitrite Negative (NEG) Urine Bilirubin Small (NEG) Urine Urobilinogen Dipstick 1.0 mg/dL (0.2 mg/dL) Urine Leukocyte Esterase Negative (NEG) Urine RBC 1-2 /HPF (0-2) Urine WBC 1-4 /HPF (0-4) Urine Squamous Epithelial Cells Mod /LPF Urine Bacteria Many /HPF (0-FEW) Urine Mucus Marked /LPF Urine Opiates Screen Pos (NEG) Urine Methadone Screen Neg (NEG) Urine Barbiturates Neg (NEG) Urine Phencyclidine Screen Neg (NEG) Urine Amphetamine/Methamphetamine Neg (NEG) Urine Benzodiazepines Screen Pos (NEG) Urine Cocaine Screen Neg (NEG) Urine Cannabinoids Screen Pos (NEG) Urine Ethyl Alcohol Neg (NEG) Bedside Urine HCG, Qualitative Hcg negative (Negative) Test 08/07/18 20:55 Troponin I Quantitative < 0.017 ng/mL (0.000-0.055) Laboratory Tests Test 08/07/18 12:47 08/07/18 12:57 08/07/18 13:00 08/07/18 13:02 White Blood Count 8.3 x10^3/uL (4.0-11.0) Red Blood Count 4.91 x10^6/uL (3.50-5.40) Hemoglobin 13.6 g/dL (12.0-15.5) Hematocrit 41.7 % (36.0-47.0) Mean Corpuscular Volume 85 fL (79-100) Mean Corpuscular Hemoglobin 28 pg (25-35) Mean Corpuscular Hemoglobin Concent 33 g/dL (31-37) Red Cell Distribution Width 15.1 % (11.5-14.5) Platelet Count 409 x10^3/uL (140-400) Neutrophils (%) (Auto) 51 % (31-73) Lymphocytes (%) (Auto) 41 % (24-48) Monocytes (%) (Auto) 5 % (0-9) Eosinophils (%) (Auto) 2 % (0-3) Basophils (%) (Auto) 1 % (0-3) Neutrophils # (Auto) 4.3 x10^3uL (1.8-7.7) Lymphocytes # (Auto) 3.4 x10^3/uL (1.0-4.8) Monocytes # (Auto) 0.4 x10^3/uL (0.0-1.1) Eosinophils # (Auto) 0.2 x10^3/uL (0.0-0.7) Basophils # (Auto) 0.1 x10^3/uL (0.0-0.2) Prothrombin Time 13.0 SEC (11.7-14.0) Prothromb Time International Ratio 1.0 (0.8-1.1) Sodium Level 139 mmol/L (136-145) Potassium Level 3.2 mmol/L (3.5-5.1) Chloride Level 102 mmol/L (98-107) Carbon Dioxide Level 24 mmol/L (21-32) Anion Gap 13 (6-14) Blood Urea Nitrogen 6 mg/dL (7-20) Creatinine 0.7 mg/dL (0.6-1.0) Estimated GFR (Cockcroft-Gault) 90.5 BUN/Creatinine Ratio 9 (6-20) Glucose Level 98 mg/dL (70-99) Calcium Level 9.4 mg/dL (8.5-10.1) Magnesium Level 1.9 mg/dL (1.8-2.4) Total Bilirubin 0.7 mg/dL (0.2-1.0) Aspartate Amino Transf (AST/SGOT) 25 U/L (15-37) Alanine Aminotransferase (ALT/SGPT) 11 U/L (14-59) Alkaline Phosphatase 116 U/L (46-116) Creatine Kinase 59 U/L (26-192) Creatine Kinase MB (Mass) < 0.5 ng/mL (0.0-3.6) Creatine Kinase MB Relative Index % (0-4) Troponin I Quantitative < 0.017 ng/mL (0.000-0.055) XU-[id number]-T-Type Natriuretic Peptide 2683 pg/mL (0-124) Total Protein 7.5 g/dL (6.4-8.2) Albumin 3.4 g/dL (3.4-5.0) Albumin/Globulin Ratio 0.8 (1.0-1.7) Lipase 73 U/L (73-393) Vitamin B12 Level 329 pg/mL (247-911) Thyroid Stimulating Hormone (TSH) 1.232 uIU/mL (0.358-3.74) O2 Saturation 95 % (92-99) Arterial Blood pH 7.57 (7.35-7.45) Arterial Blood pCO2 at Patient Temp 27 mmHg (35-46) Arterial Blood pO2 at Patient Temp 70 mmHg (75-108) Arterial Blood HCO3 24 mmol/L (21-28) Arterial Blood Base Excess 3 mmol/L (-3-3) FiO2 21 Urine Collection Type Unknown Urine Color Yellow Urine Clarity Clear Urine pH 6.5 Urine Specific [place] >=1.030 Urine Protein 30 mg/dL (NEG-TRACE) Urine Glucose (UA) Negative mg/dL (NEG) Urine Ketones (Stick) Trace mg/dL (NEG) Urine Blood Negative (NEG) Urine Nitrite Negative (NEG) Urine Bilirubin Small (NEG) Urine Urobilinogen Dipstick 1.0 mg/dL (0.2 mg/dL) Urine Leukocyte Esterase Negative (NEG) Urine RBC 1-2 /HPF (0-2) Urine WBC 1-4 /HPF (0-4) Urine Squamous Epithelial Cells Mod /LPF Urine Bacteria Many /HPF (0-FEW) Urine Mucus Marked /LPF Urine Opiates Screen Pos (NEG) Urine Methadone Screen Neg (NEG) Urine Barbiturates Neg (NEG) Urine Phencyclidine Screen Neg (NEG) Urine Amphetamine/Methamphetamine Neg (NEG) Urine Benzodiazepines Screen Pos (NEG) Urine Cocaine Screen Neg (NEG) Urine Cannabinoids Screen Pos (NEG) Urine Ethyl Alcohol Neg (NEG) Bedside Urine HCG, Qualitative Hcg negative (Negative) Test 08/07/18 20:55 Troponin I Quantitative < 0.017 ng/mL (0.000-0.055) Brief Hospital Course Ms. Garcia is a 43 old female known patient of Dr. Villagomez but the PCP is out of town hence hospitalist is covering. Admitted because of chest pain - severe she claims it's running through her back. But CTA is negative for any dissection or any other pathology aside from small granulomatous noncalcified lung nodule and she is a smoker I have provided her copies of her chest x-ray, CTA chest and, advised her against smoking 1-1 less than 30 minutes today and she understands She was teary-eyed, she complains to me of persistent left-sided facial numbness and swelling which I am unable to appreciate on my exam. Already on gabapentin 400mgs 3 times a day and Keppra 500mgs twice a day by PCP and neurologist for history of seizures and neuropathy. Has been requiring narcotics every 2 hours [id number]. We'll check an MRI of the brain if that is negative she will go home today with no PT needs Significant time in the room, teary-eyed, difficult discharge/heavy conversation consults: neuro Discharge Information Condition at Discharge: Improved, Stable Follow Up: Weeks (PCP as scheduled) Disposition/Orders: D/C to Home Scheduled Aspirin (Aspirin) 325 Mg Tablet, 162 MG PO DAILYWBKFT for primary prohylaxis MDD 1, #30 Prescribed by: PANCHO BRINK on 08/08/18 1135 Cyclobenzaprine Hcl (Cyclobenzaprine Hcl) 10 Mg Tablet, 10 MG PO TID, (Reported) Entered as Reported by: JACQUIE BANGURA on 12/25/172004 Last Action: Continued on 08/07/181607 by BRENNA COLON Gabapentin (Gabapentin ) 400 Mg Capsule, 400 MG PO TID for NEUROGENIC PAIN, ( Reported) Entered as Reported by: BRENNA COLON on 08/07/181548 Last Action: Continued on 08/07/181607 by BRENNA COLON Levetiracetam (Keppra) 500 Mg Tablet, 500 MG PO BID for seizure, (Reported) Entered as Reported by: BRENNA COLON on 08/07/18 154 Last Action: Continued on 08/07/18 160 by BRENNA COLON Lisinopril (Lisinopril) 2.5 Mg Tablet, 2.5 MG PO DAILY for FOR HYPERTENSION, # 30 Ref 0 (Reported) Entered as Reported by: BRENNA COLON on 08/07/18 154 Last Action: Converted on 08/07/181607 by BRENNA COLON Metoprolol Tartrate (Metoprolol Tartrate) 25 Mg Tablet, 12.5 MG PO BID for CHF MDD 1, #60 Prescribed by: PANCHO BRINK on 04/06/18818 Last Action: Continued on 08/07/181607 by BRENNA COLON Paroxetine Hcl (Paxil) 20 Mg Tablet, 1 TAB PO DAILY for depression, #30 Ref 5 ( Reported) Entered as Reported by: Claudia Joya on 05/27/18238 Last Action: Converted on 08/07/181607 by BRENNA COLON Potassium Chloride (Klor-Con M20) 20 Meq Tab.er.prt, 20 MEQ PO DAILYWBKFT for CHF MDD 1, #30 while on lasix Prescribed by: PANCHO BRINK on 04/06/18818 Last Action: Continued on 08/07/181607 by BRENNA COLON Scheduled PRN Diazepam (Valium) 5 Mg Tablet, 5 MG PO PRN BID PRN for ANXIETY / AGITATION, ( Reported) Entered as Reported by: JACQUIE BANGURA on 12/25/172004 Last Action: Continued on 08/07/181607 by BRENNA COLON Furosemide (Lasix) 40 Mg Tablet, 40 MG PO PRN DAILY PRN for SHORTNESS OF BREATH, (Reported) Entered as Reported by: BRENNA COLON on 08/07/181548 Last Action: Continued on 08/07/181607 by BRENNA COLON Ondansetron Hcl (Zofran) 4 Mg Tablet, 4 MG PO PRN TID PRN for NAUSEA, #15 nausea/vomiting Prescribed by: CARMELA HERBERT D.O. on 06/22/181519 Last Action: Converted on 08/07/181607 by BRENNA COLON Tramadol Hcl (Tramadol Hcl) 50 Mg Tablet, 50 MG PO Q6HRS PRN for PAIN, #12 Prescribed by: CARMELA HERBERT D.O. on 06/22/181519 Last Action: Continued on 08/07/181607 by BRENNA COLON Zolpidem Tartrate (Ambien) 10 Mg Tablet, 10 MG PO HS PRN for INSOMNIA, Ref 0 ( Reported) Entered as Reported by: BRENNA COLON on 08/07/181548 Last Action: Converted on 08/07/181607 by PANCHO ALLEN MD Aug 08, 2018 11:39
[2018-08-08] MEDS ORDERED: ASPIRIN 325 MG TABLET PO SCH (12:00)
--- NOTE | 2018-08-08 13:08 | PDOC2 ---
CARDIAC CONSULT DATE OF CONSULT Date of Consult DATE: 08/08/18 TIME: 12:57 REASON FOR CONSULT Reason for Consult: Chest pain, BP discrepancy REFERRING PHYSICIAN Referring Physician: Joel SOURCE Source: Chart review, Patient HISTORY OF PRESENT ILLNESS HISTORY OF PRESENT ILLNESS This is a 43 yo female admitted for complains of chest pain. This was tearing by description and CT noted with no acute changes. Also described as stabbing from epigastric region to mid back. Denies any SOA. No palpitations or vomiting. Denies any arm pain, numbness or tingling. She has anxiety and appears to be uncontrolled. PAST MEDICAL HISTORY Past Medical History Cardiovascular: HTN, vasovagal syncope Pulmonary: COPD, pneumonia CENTRAL NERVOUS SYSTEM: Seizure GI: GERD Hepatobiliary: Cholelithiasis Psych: Anxiety, Depression, Other (PTSD) Musculoskeletal: Osteoarthritis, Other (scoliosis) Rheumatologic: Fibromyalgia Infectious disease: No pertinent hx ENT: No pertinent hx Renal/: UTI, Other (nephrolithiasis with lithotripsy) Endocrine: Other (thyroid cyst) Dermatology: No pertinent hx PAST SURGICAL HISTORY Past Surgical History Arthroscopy (left knee), Cholecystectomy (12/2017), Tubal Ligation, Other ( thyroid cyst removal) SOCIAL HISTORY Smoke: <1 pack per day Drugs: Marijuana CURRENT MEDICATIONS CURRENT MEDICATIONS Current Medications Medications (Trade) Dose Ordered Sig/Jayleen Route PRN Reason Start Time Stop Time Status Last Admin Dose Admin Iohexol (Omnipaque 350 Mg/ml) 75 ml 1X ONCE IV 08/07/18 13:30 08/07/18 13:31 DC 08/07/18 13:41 Lorazepam (Ativan) 1 mg 1X ONCE IV 08/07/18 14:45 08/07/18 14:46 DC 08/07/18 15:00 Lidocaine (Lidoderm) 1 patch DAILY TD 08/07/18 15:15 08/08/18 08:25 Miscellaneous (Lidoderm Patch Removal) 1 ea QHS MC 08/07/18 21:00 08/07/18 21:00 Potassium Chloride (Klor-Con) 40 meq 1X ONCE PO 08/07/18 15:15 08/07/18 15:19 DC 08/07/18 16:24 Enoxaparin Sodium (Lovenox 40mg Syringe) 40 mg Q24H SQ 08/07/18 16:00 08/07/18 16:24 Morphine Sulfate (Morphine Sulfate) 4 mg PRN QID PRN IV PAIN 08/07/18 16:15 08/08/18 11:38 Oxycodone/ Acetaminophen (Percocet 5/325) 1 tab PRN Q4HRS PRN PO MODERATE PAIN 08/07/18 16:15 08/08/18 08:22 Cyclobenzaprine HCl (Flexeril) 10 mg TID PO 08/07/18 21:00 08/08/18 08:19 Diazepam (Valium) 5 mg PRN BID PRN PO ANXIETY / AGITATION 08/07/18 16:15 08/07/18 20:33 Furosemide (Lasix) 40 mg PRN DAILY PRN PO SHORTNESS OF BREATH 08/07/18 16:15 08/07/18 16:24 Gabapentin (Neurontin) 400 mg TID PO 08/07/18 21:00 08/08/18 08:21 Levetiracetam (Keppra) 500 mg BID PO 08/07/18 21:00 08/08/18 08:19 Metoprolol Tartrate (Lopressor) 12.5 mg BID PO 08/07/18 21:00 08/08/18 08:21 Potassium Chloride (Klor-Con) 20 meq DAILYWBKFT PO 08/08/18 08:00 08/08/18 08:19 Lisinopril (Prinivil) 2.5 mg DAILY PO 08/08/18 09:00 08/08/18 08:18 Paroxetine HCl (Paxil) 20 mg DAILY PO 08/08/18 09:00 08/08/18 08:21 Zolpidem Tartrate (Ambien) 5 mg PRN QHS PRN PO INSOMNIA 08/07/18 16:30 08/07/18 22:56 Aspirin (Kwaku Aspirin) 162 mg DAILYWBKFT PO 08/08/18 12:00 08/08/18 11:36 ALLERGIES ALLERGIES: Coded Allergies: No Known Drug Allergies (Unverified , 01/01/18) ROS Review of System 14 point ROS evaluated with pertinent positives noted per HPI PHYSICAL EXAM General: Alert, Oriented X3, Cooperative, No acute distress HEENT: Atraumatic, Mucous membr. moist/pink Lungs: Clear to auscultation, Normal air movement Heart: Regular rate (SR), Normal S1, Normal S2, No murmurs Abdomen: Soft, No tenderness Extremities: No cyanosis, No edema Skin: No significant lesion Neuro: Normal speech, Sensation intact Psych/Mental Status: Mental status NL, Other (anxious) MUSCULOSKELETAL: Osteoarthritic changes both hands VITALS VITALS Vital Signs Date Time Temp Pulse Resp B/P (MAP) Pulse Ox O2 Delivery O2 Flow Rate FiO2 08/08/18 12:08 18 Room Air 08/08/18 11:00 98.0 71 112/74 (87) 97 98.0 LABS Lab: Laboratory Tests Test 08/07/18 13:00 08/07/18 13:02 08/07/18 20:55 Urine Collection Type Unknown Urine Color Yellow Urine Clarity Clear Urine pH 6.5 Urine Specific [place] >=1.030 Urine Protein 30 mg/dL (NEG-TRACE) Urine Glucose (UA) Negative mg/dL (NEG) Urine Ketones (Stick) Trace mg/dL (NEG) Urine Blood Negative (NEG) Urine Nitrite Negative (NEG) Urine Bilirubin Small (NEG) Urine Urobilinogen Dipstick 1.0 mg/dL (0.2 mg/dL) Urine Leukocyte Esterase Negative (NEG) Urine RBC 1-2 /HPF (0-2) Urine WBC 1-4 /HPF (0-4) Urine Squamous Epithelial Cells Mod /LPF Urine Bacteria Many /HPF (0-FEW) Urine Mucus Marked /LPF Urine Opiates Screen Pos (NEG) Urine Methadone Screen Neg (NEG) Urine Barbiturates Neg (NEG) Urine Phencyclidine Screen Neg (NEG) Urine Amphetamine/Methamphetamine Neg (NEG) Urine Benzodiazepines Screen Pos (NEG) Urine Cocaine Screen Neg (NEG) Urine Cannabinoids Screen Pos (NEG) Urine Ethyl Alcohol Neg (NEG) Bedside Urine HCG, Qualitative Hcg negative (Negative) Troponin I Quantitative < 0.017 ng/mL (0.000-0.055) ECHOCARDIOGRAM ECHOCARDIOGRAM <Conclusion> The left ventricular systolic function is normal and the ejection fraction is within normal range. EF 55% There is normal LV segmental wall motion. The left atrium is moderately dilated. Doppler and Color-flow revealed moderate mitral regurgitation. There is small to moderate left pleural effusion. DATE: 04/05/18 1225 ASSESSMENT/PLAN ASSESSMENT/PLAN 1. Atypical CP: likely GI trop nml EKG same as before no acute changes. 2. Hx of diastolic CHF: compensated 3. HTN: controlled 4. Tobaccoism, marijuana use 5. Hx of seizure: currently unmedicated Recommendations 1. Oupt stress test encouraged given her risk factors. Has financial constraints, high risk for noncompliance. Encouraged to follow up in office. 2. ASA. 3. Smoking and marijuana cessation IFTIKHAR COSBY APRN Aug 08, 2018 13:08
--- NOTE | 2018-08-08 13:20 | NUR ---
DISCHARGE INSTRUCTIONS GIVEN, QUESTIONS AND CONCERNS ANSWERED, PATIENT VERBALIZED UNDERSTANDING OF DISCHARGE INFORMATION INCLUDING TAKING ALL MEDICATIONS INSTRUCTED AND FOLLOW UP WITH YOUR PRIMARY PROVIDER IN 1-2 WEEKS. ALL PERSONAL BELONGINGS SENT WITH PATIENT AT TIME OF DISCHARGE, SALINE LOCK REMOVED PRIOR TO DISCHARGE.
--- NOTE | 2018-08-08 13:46 | NUR ---
PATIENT LEAVES THE UNIT PER W/C ACCOMPANIED BY FAMILY MEMBER, EMOTIONAL SUPPORT GIVEN, FOLLOW UP APPOINTMENTS ENCOURAGED.
--- NOTE | 2018-08-08 13:50 | PDOC ---
PROGRESS NOTES Assessment Assessment Seizure. Numbness. Chest pain. HTN. Cannabinoids positive. Benzo positive. Opiates positive. RECOMMENDATIONS/PLAN: Continue Keppra 500 mg bid. Neurontin 400 mg tid. Treat medical and cardiac diseases. EEG on 08/07/18: No seizure activity. In Beta frequency. HCT: negative. HISTORY OF THE PRESENT ILLNESS: This is a 43-year-old female patient who was admit due to acute chest pain that is sharp, tearing anterior chest pain with radiation to her back which has been present for the past few days. She has been seeing Dr. Lawson, she was supposed to f.u with CV team for CHF and mitral regurg per their last note. She had ER visit for atypical chest pain 2 months ago and was sent home. She stated she had seizures for about 10 years several seizures each year. No seizure recently. Her last seizure was in 05/2018 pre her statement. Past Medical History Cardiovascular: CHF, HTN Pulmonary: No pertinent hx CENTRAL NERVOUS SYSTEM: Seizure GI: GERD Hepatobiliary: Cholelithiasis Psych: Anxiety, Depression, Other Musculoskeletal: Osteoarthritis, Other Rheumatologic: Fibromyalgia Infectious disease: No pertinent hx Renal/: Other Endocrine: Other Past Surgical History No major surgery recently. Family History Cancer, Hypertension ALLERGY: NKDA MEDICATIONS: Refer to [facility] FAMILY HISTORY: HTN, HLD, DM, CAD, PD, Dementia, Non contributory. SOCIAL HISTORY: Lives at home. Denies drinking,. She uses marijuana.. She smokes < 1 pack of cigarettes a day for many years. REVIEW OF SYSTEMS: Constitutional: No malnutrition, weight loss, cachexia. Head: No traumatic brain or head injury. Skin: No edema, or rash. Ear: No infection, tinnitus. Eyes: No vision loss or color blindness. Nose: No bleeding or purulent discharges. Hearing: No hearing decrease. Neck: No injury. Breast: No history of cancer, masses,or discharges. Cardiac: HTN. Pulmonary: Smoking.. GI: No GI ulcer, GI bleeding. Urinary/genital: UTI. Endocrinologic: No cousin face, craniofacial dysmorphism, polydactyly, goiter. Skeletomuscular: No muscular atrophy, deformity. Neurological: see HP. Psychiatric: Denies drug use/abuse. Otherwise, not [id number] review of systems. PHYSICAL EXAMINATION: General appearance is in no acute distress. HEENT: Normocephalic and nontraumatic. Eyes, nose, ears, and throat are unremarkable. Neck is supple. No lymphadenopathy. No crepitus. Cardiovascular: S1, S2, regular rate and rhythm. Pulmonary: Clear to auscultation bilaterally. Abdomen: Bowel sounds are positive. Abdomen is soft, nontender, and nondistended. Extremities: No rash, lesions, or edema. No restriction of range of motion NEUROLOGICAL EXAMINATION: Alert Oriented to time, place and person. PERRL. EOMI. CN: no focal findings. Muscle tone: within normal. Muscle strength: 5 DTR: 2 Plantar reflex: Flexor response bilaterally Gait: at her baseline normal. Sensory exam: no abnormal findings. No cerebellar signs elicited. F-T-N test accurate. Objective Objective Vital Signs Date Time Temp Pulse Resp B/P (MAP) Pulse Ox O2 Delivery O2 Flow Rate FiO2 08/08/18 12:08 18 Room Air 08/08/18 11:00 98.0 71 112/74 (87) 97 98.0 Intake and Output 08/08/18 06:59 Intake Total 120 ml Balance 120 ml Intake Oral 120 ml # Voids 2 Vitals Signs Vitals VS - Last 72 Hours, by Label Date Time Temp Pulse Resp B/P (MAP) Pulse Ox O2 Delivery O2 Flow Rate FiO2 08/08/18 12:08 18 Room Air 08/08/18 11:38 18 Room Air 08/08/18 11:00 98.0 71 17 112/74 (87) 97 Room Air 98.0 08/08/18 09:22 99 Room Air 08/08/18 08:22 Room Air 08/08/18 08:21 75 149/97 08/08/18 08:18 75 149/97 08/08/18 08:00 Room Air 08/08/18 07:00 97.5 75 17 149/97 (114) 99 Room Air 97.5 08/08/18 05:46 97 08/08/18 05:15 97 Room Air 08/08/18 03:00 95.9 85 20 122/81 (95) 97 Room Air 95.9 08/08/18 02:20 97 Room Air 08/07/18 23:00 98.4 63 20 126/77 (93) 97 Room Air 98.4 08/07/18 22:56 63 126/77 08/07/18 22:56 99 Room Air 08/07/18 20:04 Room Air 08/07/18 19:00 98.1 79 20 152/101 (118) 99 Room Air 98.1 08/07/18 17:44 Room Air 08/07/18 17:00 Room Air 08/07/18 16:20 Room Air 08/07/18 16:07 97.6 75 18 168/89 (115) 99 Room Air 97.6 08/07/18 15:24 81 20 164/89 (114) 100 Room Air 08/07/18 15:05 72 20 158/90 (112) 100 Room Air 08/07/18 15:01 78 22 172/100 (124) 100 Room Air 08/07/18 14:54 70 22 133/84 (100) 100 Room Air 08/07/18 14:24 78 24 164/90 (114) 100 Room Air 08/07/18 13:21 74 22 178/97 (124) 99 Room Air 08/07/18 13:12 74 22 184/113 (136) 99 Room Air 08/07/18 12:57 Room Air 08/07/18 12:32 97.9 89 22 173/105 (127) 99 Room Air 97.9 Laboratory Laboratory Laboratory Tests Test 08/07/18 20:55 Troponin I Quantitative < 0.017 ng/mL (0.000-0.055) Medication Medications Current Medications Aspirin (Kwaku Aspirin) 162 mg DAILYWBKFT PO Last administered on 08/08/18at 11: 36; Start 08/08/18 at 12:00 Cyclobenzaprine HCl (Flexeril) 10 mg TID PO Last administered on 08/08/18at 08: 19; Start 08/07/18 at 21:00 Diazepam (Valium) 5 mg PRN BID PRN PO ANXIETY / AGITATION Last administered on 08/07/18at 20:33; Start 08/07/18 at 16:15 Enoxaparin Sodium (Lovenox 40mg Syringe) 40 mg Q24H SQ Last administered on at 16:24; Start 08/07/18 at 16:00 Enoxaparin Sodium (Lovenox Per Pharmacy Prophylaxis Dosing) 1 each PRN DAILY PRN MC SEE COMMENTS; Start 08/07/18 at 15:15 Furosemide (Lasix) 40 mg PRN DAILY PRN PO SHORTNESS OF BREATH Last administered on 08/07/18 16:24; Start 08/07/18 at 16:15 Gabapentin (Neurontin) 400 mg TID PO Last administered on 08/08/18 08:21; Start 08/07/18 at 21:00 Levetiracetam (Keppra) 500 mg BID PO Last administered on 08/08/18 08:19; Start 08/07/18 at 21:00 Lidocaine (Lidoderm) 1 patch DAILY TD Last administered on 08/08/18 08:25; Start 08/07/18 at 15:15 Lisinopril (Prinivil) 2.5 mg DAILY PO Last administered on 08/08/18 08:18; Start 08/08/18 at 09:00 Lorazepam (Ativan) 1 mg 1X ONCE IV Last administered on 08/07/18 15:00; Start 08/07/18 at 14:45; Stop 08/07/18 at 14:46; Status DC Metoprolol Tartrate (Lopressor) 12.5 mg BID PO Last administered on 08/08/18 08:21; Start 08/07/18 at 21:00 Miscellaneous (Lidoderm Patch Removal) 1 ea QHS MC Last administered on 21:00; Start 08/07/18 at 21:00 Morphine Sulfate (Morphine Sulfate) 4 mg PRN QID PRN IV PAIN Last administered on 08/08/18at 11:38; Start 08/07/18 at 16:15 Ondansetron HCl (Zofran Odt) 4 mg PRN TID PRN PO NAUSEA/VOMITING; Start at 16:30 Oxycodone/ Acetaminophen (Percocet 5/325) 1 tab PRN Q4HRS PRN PO MODERATE PAIN Last administered on 08/08/18 08:22; Start 08/07/18 at 16:15 Paroxetine HCl (Paxil) 20 mg DAILY PO Last administered on 08/08/18 08:21; Start 08/08/18 at 09:00 Potassium Chloride (Klor-Con) 20 meq DAILYWBKFT PO Last administered on 08:19; Start 08/08/18 at 08:00 Potassium Chloride (Klor-Con) 40 meq 1X ONCE PO Last administered on at 16:24; Start 08/07/18 at 15:15; Stop 08/07/18 at 15:19; Status DC Tramadol HCl (Ultram) 50 mg PRN Q6HRS PRN PO MILD TO MODERATE PAIN; Start 08/07 at 16:15 Zolpidem Tartrate (Ambien) 5 mg PRN QHS PRN PO INSOMNIA Last administered on at 22:56; Start 08/07/18 at 16:30 Comment Review of Relevant I have reviewed the following items nacho (where applicable) has been applied. VALERY MORRISSEY MD Aug 08, 2018 13:50
== END 2018-08-08 13:46 | disposition home or self-care (01) | DRG 291 ==
LOC: ER 12:28 → 5 NORTH 14:55
PROVIDERS: ADMIT Internal Medicine; ATTEND Internal Medicine
DX: I11.0 Hypertensive heart disease with heart failure (principal); I50.31 Acute diastolic (congestive) heart failure; R07.89 Other chest pain; F12.10 Cannabis abuse, uncomplicated; F17.210 Nicotine dependence, cigarettes, uncomplicated; F43.10 Post-traumatic stress disorder, unspecified; J44.9 Chronic obstructive pulmonary disease, unspecified; M19.90 Unspecified osteoarthritis, unspecified site; K21.9 Gastro-esophageal reflux disease without esophagitis; M41.9 Scoliosis, unspecified; M79.7 Fibromyalgia; F32.9 Major depressive disorder, single episode, unspecified; G62.9 Polyneuropathy, unspecified; R56.9 Unspecified convulsions; Z82.49 Family history of ischemic heart disease and other diseases of the circulatory system; Z79.899 Other long term (current) drug therapy; Z87.442 Personal history of urinary calculi; Z83.3 Family history of diabetes mellitus; Z87.01 Personal history of pneumonia (recurrent); Z87.440 Personal history of urinary (tract) infections; Z80.9 Family history of malignant neoplasm, unspecified; Z84.89 Family history of other specified conditions; Z82.0 Family history of epilepsy and other diseases of the nervous system
CPT/HCPCS: 36415; 70450; 71045; 71275; 80053; 80307; 81001; 81025; 82553; 82607; 82805; 83690; 83735; 83880; 84443; 84484; 85025; 85610; 87086; 93005; 95816; 96374; J1650; J2060; J2270; Q9967; 99285-25

== ENCOUNTER 2019-03-22 08:03 | Emergency (ER) | payer SELFPAY ==
[~2019-03-22] VITALS: Ht 154.9 cm; Wt 63.5 kg
[~2019-03-22 08:03] MED LIST changes: +ASPI325T8 PO; +ATOR20TA58 PO; +DILT180C29 PO; +GABA-689 PO; +ISOS60TA2 PO; +LEVE500T56 PO; +LISI2.5T PO; +LOSA100T14 PO; +ZOLP10TA PO
[2019-03-22] MEDS ORDERED: IV NORMAL SALINE 1000ML BAG 1,000 ML IV SCH (08:16)
--- NOTE | 2019-03-22 08:21 | PHYS DOC ---
Past Medical History Past Medical History: Anxiety, CAD, CHF, Hypertension, Seizure, Other Additional Past Medical Histor: CHRONIC PAIN, long QT syndrome Past Surgical History: Other Additional Past Surgical Histo: L KNEE, GALL BLADDER REMOVED, CYST REMOVED ON THYROID, TUBAL Alcohol Use: None Drug Use: Marijuana Adult General Chief Complaint Chief Complaint: ABDOMINAL PAIN HPI HPI 44-year-old female presents to the emergency room complaints of abdominal pain. Patient states pain has been ongoing 2 weeks, worse today. She states this is a stabbing sensation in the left upper quadrant. She describes nausea, no vomiting, fever and a headache or visual change. Patient states history of kidney stones with similar feeling. She also has underlying history of HTN and states she has bee out of her medications for several weeks. Nothing makes her pain worse or better Review of Systems Review of Systems Constitutional: Denies fever or chills [] Respiratory: Denies cough or shortness of breath [] Cardiovascular: No additional information not addressed in HPI [] GI: LUQ abdominal pain, + nausea, no vomiting, bloody stools or diarrhea [] : Denies dysuria or hematuria [] Musculoskeletal: Denies back pain or joint pain [] Neurologic: Denies headache, focal weakness or sensory changes [] All other systems were reviewed and found to be within normal limits, except as documented in this note. Current Medications Current Medications Current Medications Medications (Trade) Dose Ordered Sig/Jayleen Start Time Stop Time Status Last Admin Dose Admin Ceftriaxone Sodium (Rocephin) 1 gm 1X ONCE 03/22/19 09:30 03/22/19 09:31 DC 03/22/19 09:48 1 GM Ketorolac Tromethamine (Toradol 30mg Vial) 30 mg 1X ONCE 03/22/19 08:30 03/22/19 08:31 DC 03/22/19 08:42 30 MG Morphine Sulfate (Morphine Sulfate) 2 mg 1X ONCE 03/22/19 09:15 03/22/19 09:16 DC 03/22/19 09:22 2 MG Ondansetron HCl (Zofran) 4 mg 1X ONCE 03/22/19 08:30 03/22/19 08:31 DC 03/22/19 08:41 4 MG Sodium Chloride 1,000 ml @ 1,000 mls/hr Q1H 03/22/19 08:16 03/22/19 09:15 DC 03/22/19 08:42 1,000 MLS/HR Allergies Allergies Allergies Coded Allergies Type Severity Reaction Last Updated Verified No Known Drug Allergies 01/01/18 No Physical Exam Physical Exam Constitutional: Well developed, well nourished, no acute distress, non-toxic appearance. [] HENT: Normocephalic, atraumatic, bilateral external ears normal, oropharynx moist, no oral exudates, nose normal. [] Cardiovascular:Heart rate regular rhythm, no murmur [] Lungs & Thorax: Bilateral breath sounds clear to auscultation [] Abdomen: Bowel sounds normal, soft, minimal tenderness to left upper quadrant, no masses, no pulsatile masses. [] Skin: Warm, dry, no erythema, no rash. [] Back: No tenderness, no CVA tenderness. [] Extremities: No tenderness, no edema. [] Neurologic: Alert and oriented X 3, no focal deficits noted. [] Psychologic: Affect normal, judgement normal, mood normal. [] Current Patient Data Vital Signs Vital Signs Date Time Temp Pulse Resp B/P (MAP) Pulse Ox O2 Delivery O2 Flow Rate FiO2 03/22/19 09:22 18 03/22/19 09:11 77 135/71 (92) 03/22/19 08:13 99 Room Air Lab Values Laboratory Tests Test 03/22/19 08:07 03/22/19 08:42 Urine Collection Type Unknown Urine Color Yellow Urine Clarity Cloudy Urine pH 6.0 Urine Specific Colo 1.015 Urine Protein Negative mg/dL (NEG-TRACE) Urine Glucose (UA) Negative mg/dL (NEG) Urine Ketones (Stick) Negative mg/dL (NEG) Urine Blood Large (NEG) Urine Nitrite Negative (NEG) Urine Bilirubin Negative (NEG) Urine Urobilinogen Dipstick 0.2 mg/dL (0.2 mg/dL) Urine Leukocyte Esterase Trace (NEG) Urine RBC Occ /HPF (0-2) Urine WBC 1-4 /HPF (0-4) Urine Squamous Epithelial Cells Few /LPF Urine Bacteria Moderate /HPF (0-FEW) White Blood Count 8.7 x10^3/uL (4.0-11.0) Red Blood Count 5.18 x10^6/uL (3.50-5.40) Hemoglobin 14.4 g/dL (12.0-15.5) Hematocrit 43.9 % (36.0-47.0) Mean Corpuscular Volume 85 fL (79-100) Mean Corpuscular Hemoglobin 28 pg (25-35) Mean Corpuscular Hemoglobin Concent 33 g/dL (31-37) Red Cell Distribution Width 15.2 % (11.5-14.5) H Platelet Count 370 x10^3/uL (140-400) Neutrophils (%) (Auto) 51 % (31-73) Lymphocytes (%) (Auto) 38 % (24-48) Monocytes (%) (Auto) 6 % (0-9) Eosinophils (%) (Auto) 4 % (0-3) H Basophils (%) (Auto) 2 % (0-3) Neutrophils # (Auto) 4.5 x10^3/uL (1.8-7.7) Lymphocytes # (Auto) 3.3 x10^3/uL (1.0-4.8) Monocytes # (Auto) 0.5 x10^3/uL (0.0-1.1) Eosinophils # (Auto) 0.3 x10^3/uL (0.0-0.7) Basophils # (Auto) 0.2 x10^3/uL (0.0-0.2) Sodium Level 141 mmol/L (136-145) Potassium Level 3.9 mmol/L (3.5-5.1) Chloride Level 105 mmol/L (98-107) Carbon Dioxide Level 25 mmol/L (21-32) Anion Gap 11 (6-14) Blood Urea Nitrogen 11 mg/dL (7-20) Creatinine 0.9 mg/dL (0.6-1.0) Estimated GFR (Cockcroft-Gault) 67.4 BUN/Creatinine Ratio 12 (6-20) Glucose Level 77 mg/dL (70-99) Calcium Level 9.0 mg/dL (8.5-10.1) Total Bilirubin 0.4 mg/dL (0.2-1.0) Aspartate Amino Transferase (AST) 20 U/L (15-37) Alanine Aminotransferase (ALT) 6 U/L (14-59) L Alkaline Phosphatase 120 U/L (46-116) H Total Protein 8.4 g/dL (6.4-8.2) H Albumin 4.0 g/dL (3.4-5.0) Albumin/Globulin Ratio 0.9 (1.0-1.7) L Laboratory Tests 03/22/19 08:42 Laboratory Tests 03/22/19 08:42 EKG EKG [] Radiology/Procedures Radiology/Procedures [facility] [address] [place] [address] IMAGING REPORT Signed PATIENT: TRE ASENCIO ACCOUNT: [id number] : 1975 LOCATION: ER AGE: 44 SEX: F EXAM STATUS: REG ER ORD. PHYSICIAN: EJ COTE MD REASON: left flank, upper quadrant abdominal pain, history of kidney stone PROCEDURE: CT ABDOMEN PELVIS WO CONTRAST EXAM: Abdomen and pelvis CT without intravenous contrast. HISTORY: Left flank pain. TECHNIQUE: Computed tomographic images of the abdomen and pelvis were obtained without contrast. Multiplanar reformatting was performed. *One or more of the following individualized dose reduction techniques were utilized for this examination: 1. Automated exposure control. 2. Adjustment of the mA and/or kV according to patient size. 3. Use of iterative reconstruction technique. COMPARISON: 05/17/2018. FINDINGS: Evaluation of the lower thorax demonstrates posterior dependent and basilar atelectasis. There is no infiltrate or pleural effusion. The heart is normal in size. No hepatic lesion is seen. The gallbladder is surgically absent. The pancreas is unremarkable. There are splenic granulomas. The adrenal glands are unremarkable. There is no evidence of nephroureterolithiasis or hydronephrosis. There is slight asymmetry in the right greater than left renal collecting system which is likely due to the hydration status of the patient. The bladder is unremarkable. There is a retroverted uterus. There are fallopian tube closure devices. No adnexal lesion is seen. There is no evidence of appendicitis. There is no bowel obstruction. There is distal colonic diverticulosis. There is no convincing diverticulitis. There is no aortic aneurysm. There are few nonspecific lymph nodes, within physiologic limits. There is no suspicious osseous lesion. IMPRESSION: 1. No acute abdominal or pelvic finding. 2. Colonic diverticulosis. Electronically signed by: Karlene Roca MD (03/22/2019 9:43 AM) [facility] DICTATED and SIGNED BY: KARLENE ROCA MD DATE: 03/22/19 0943 [] Course & Med Decision Making Course & Med Decision Making Pertinent Labs and Imaging studies reviewed. (See chart for details) []44-year-old female presents to the emergency room complaints of abdominal pain. Patient states pain has been ongoing 2 weeks, worse today. She states this is a stabbing sensation in the left upper quadrant. She describes nausea, no vomiting, fever and a headache or visual change. Patient states history of kidney stones with similar feeling. She also has underlying history of HTN and states she has bee out of her medications for several weeks. Toradol and zofran given IV without relief Morphine 2 mg IV x 1 Labs reviewed - + blood in urine/culture pending WBC/metabolic profile negative CT without evidence of acute findings Rocephin 1gm IV in ER Dragon Disclaimer Dragon Disclaimer This electronic medical record was generated, in whole or in part, using a voice recognition dictation system. Departure Departure Impression: Primary Impression: Abdominal pain Additional Impression: UTI (urinary tract infection) Disposition: 01 HOME, SELF-CARE Condition: STABLE Referrals: YANCY ARCHULETA MD (PCP) Patient Instructions: Abdominal Pain (Nonspecific), Urinary Tract Infection, Kqin-ox-Ypty Additional Instructions: Recommend follow up with PCP 3 - 5 days Return to the ER with worsening symptoms, intractable pain, fever, altered mental status Tylenol/Motrin as needed for pain Take antibiotics as directed Scripts Dicyclomine Hcl (DICYCLOMINE HCL) 10 Mg Capsule 1 CAP PO TID for 10 Days, #30 CAP 3 Refills Prov: EJ COTE MD 03/22/19 Cephalexin (KEFLEX) 500 Mg Capsule 2 CAP PO Q12HR for 3 Days, #12 CAP Prov: EJ COTE MD 03/22/19 Problem Qualifiers Primary Impression: Abdominal pain Abdominal location: left upper quadrant Qualified Codes: R10.12 - Left upper quadrant pain Additional Impression: UTI (urinary tract infection) Urinary tract infection type: site unspecified Hematuria presence: with hematuria Qualified Codes: N39.0 - Urinary tract infection, site not specified; R31.9 - Hematuria, unspecified EJ COTE MD Mar 22, 2019 08:21
[2019-03-22] MEDS ORDERED: KETOROLAC 30 MG/ML VIAL. IV ONE (08:30)
[2019-03-22] MEDS ORDERED: ONDANSETRON PF 4 MG/2 ML VIAL. IV ONE (08:30)
[2019-03-22 09:01] LABS: BASO # 0.2 x10^3/uL (0.0-0.2); BASO % 2 % (0-3); EOS # 0.3 x10^3/uL (0.0-0.7); EOS % 4 % (0-3); HEMATOCRIT 43.9 % (36.0-47.0); HEMOGLOBIN 14.4 g/dL (12.0-15.5); LYMPH # 3.3 x10^3/uL (1.0-4.8); LYMPH % 38 % (24-48); MEAN CORPUSCULAR HEMOGLOBIN 28 pg (25-35); MEAN CORPUSCULAR HGB CONC 33 g/dL (31-37); MEAN CORPUSCULAR VOLUME 85 fL (79-100); MONO # 0.5 x10^3/uL (0.0-1.1); MONO % 6 % (0-9); NEUT # 4.5 x10^3/uL (1.8-7.7); NEUT % 51 % (31-73); PLATELET COUNT 370 x10^3/uL (140-400); RED BLOOD COUNT 5.18 x10^6/uL (3.50-5.40); RED CELL DISTRIBUTION WIDTH 15.2 % (11.5-14.5); WHITE BLOOD COUNT 8.7 x10^3/uL (4.0-11.0)
[2019-03-22 09:03] LABS: BILIRUBIN,URINE NEGATIVE (NEG); CLARITY,URINE CLOUDY; COLOR,URINE YELLOW; NITRITE,URINE NEGATIVE (NEG); PROTEIN,URINE NEGATIVE (NEG-TRACE); UROBILINOGEN,URINE 0.2 mg/dL (0.2 mg/dL)
[2019-03-22 09:09] LABS: CREATININE 0.9 mg/dL (0.6-1.0); GFR 67.4; POTASSIUM 3.9 mmol/L (3.5-5.1)
[2019-03-22 09:14] LABS: ALBUMIN/GLOBULIN RATIO 0.9 (1.0-1.7); TOTAL BILIRUBIN 0.4 mg/dL (0.2-1.0); TOTAL PROTEIN 8.4 g/dL (6.4-8.2)
[2019-03-22] MEDS ORDERED: MORPHINE SULFATE 2 MG/ML VIAL. IV ONE (09:15)
[2019-03-22 09:17] LABS: BACTERIA,URINE MODERATE /HPF (0-FEW); RBC,URINE OCC /HPF (0-2); SQUAMOUS EPITHELIAL CELL,UR FEW /LPF
[2019-03-22] MEDS ORDERED: cefTRIAXone IV Push 1 GM VIAL. IVP ONE (09:30)
--- NOTE | 2019-03-22 09:46 | RAD ---
EXAM: Abdomen and pelvis CT without intravenous contrast. HISTORY: Left flank pain. TECHNIQUE: Computed tomographic images of the abdomen and pelvis were obtained without contrast. Multiplanar reformatting was performed. *One or more of the following individualized dose reduction techniques were utilized for this examination: 1. Automated exposure control. 2. Adjustment of the mA and/or kV according to patient size. 3. Use of iterative reconstruction technique. COMPARISON: 05/17/2018. FINDINGS: Evaluation of the lower thorax demonstrates posterior dependent and basilar atelectasis. There is no infiltrate or pleural effusion. The heart is normal in size. No hepatic lesion is seen. The gallbladder is surgically absent. The pancreas is unremarkable. There are splenic granulomas. The adrenal glands are unremarkable. There is no evidence of nephroureterolithiasis or hydronephrosis. There is slight asymmetry in the right greater than left renal collecting system which is likely due to the hydration status of the patient. The bladder is unremarkable. There is a retroverted uterus. There are fallopian tube closure devices. No adnexal lesion is seen. There is no evidence of appendicitis. There is no bowel obstruction. There is distal colonic diverticulosis. There is no convincing diverticulitis. There is no aortic aneurysm. There are few nonspecific lymph nodes, within physiologic limits. There is no suspicious osseous lesion. IMPRESSION: 1. No acute abdominal or pelvic finding. 2. Colonic diverticulosis. Electronically signed by: Karlene Noe MD (03/22/2019 9:43 AM) [facility]
[2019-03-22 09:51] VITALS: BP 130/70
[2019-03-22] MEDS ORDERED: DICY10CA3 PO (09:55)
[2019-03-22] MEDS ORDERED: CEPH-264 PO (09:55)
== END 2019-03-22 10:09 | disposition home or self-care (01) ==
LOC: ER 08:03
DX: N39.0 Urinary tract infection, site not specified (principal); R10.12 Left upper quadrant pain; R11.0 Nausea; F41.9 Anxiety disorder, unspecified; I11.0 Hypertensive heart disease with heart failure; I50.9 Heart failure, unspecified; G89.29 Other chronic pain; I25.10 Atherosclerotic heart disease of native coronary artery without angina pectoris
CPT/HCPCS: 36415; 74176; 80053; 81001; 85025; 96374; 96375; 99285; J0696; J1885; J2270; J2405; J7030; 87086; 96361

== ENCOUNTER 2020-08-23 14:17 | Emergency (ER) | payer SELFPAY ==
[~2020-08-23] VITALS: Ht 154.9 cm; Wt 59.0 kg
[~2020-08-23 14:17] MED LIST changes: +CEPH-264 PO; +DICY10CA3 PO; -ISOS60TA2 PO; +ISOS60TA55 PO; -POTA10TA12 PO; +POTASSIUM CHLO10 ME1 PO
[2020-08-23 14:19] VITALS: BP 142/93
[2020-08-23] MEDS ORDERED: KETOROLAC 60 MG/2 ML VIAL. IM ONE (15:30)
[2020-08-23] MEDS ORDERED: diazePAM 5 MG TABLET PO ONE (15:30)
[2020-08-23] MEDS ORDERED: methylPREDNISolone SOD SUCC PF 125 MG/2 ML VIAL. IM ONE (15:30)
[2020-08-23] MEDS ORDERED: CYCL10TA2 PO ×2 (15:41→16:18)
[2020-08-23] MEDS ORDERED: METH4TAB2 PO ×2 (15:41→16:18)
--- NOTE | 2020-08-23 15:42 | PHYS DOC ---
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 Also complaining of spasms bilateral lower extremities for 2 days. Denies any known injury. Denies any numbness or tingling to bilateral lower extremities, denies any loss of bowel/bladder function. Patient states she has tried following up with multiple clinics including the [facility] for her chronic back pain and medical conditions, she states she has been told she needs to follow-up with specialist especially for her chronic pain. She states she has also been told she could have MS and needs further testing but she ca nnot afford the testing neither can she follow-up because she does not have medical insurance. She states she has tried getting government programs like Medicaid but she could not qualify. She states she could not qualify for [facility] either. She states she is unemployed due to her medical conditions. She states yesterday she took a shot of vodka and this morning she took a Percocet from a friend. She states she also took ibuprofen with no relief. She is very tearful Review of Systems: Review of Systems: Constitutional: Denies fever or chills. [] Eyes: Denies change in visual acuity. [] HENT: Denies nasal congestion or sore throat. [] Respiratory: Denies cough or shortness of breath. [] Cardiovascular: Denies chest pain or edema. [] GI: Denies abdominal pain, nausea, vomiting, bloody stools or diarrhea. [] : Denies dysuria. [] Musculoskeletal: Reports bilateral lower extremity pain and spasms. Reports chronic low back pain. Denies back pain Integument: Denies rash. [] Neurologic: Denies headache, focal weakness or sensory changes. [] Psychiatric: Denies depression or anxiety. [] Heart Score: C/O Chest Pain: N/A Risk Factors: Risk Factors: DM, Current or recent (<one month) smoker, HTN, HLP, family history of CAD, obesity. Risk Scores: Score 0 - 3: 2.5% MACE over next 6 weeks - Discharge Home Score 4 - 6: 20.3% MACE over next 6 weeks - Admit for Clinical Observation Score 7 - 10: 72.7% MACE over next 6 weeks - Early Invasive Strategies Current Medications: Current Medications Medications (Trade) Dose Ordered Sig/Jayleen Start Time Stop Time Status Last Admin Dose Admin Diazepam (Valium) 5 mg 1X ONCE 08/23/20 15:30 08/23/20 15:31 Ketorolac Tromethamine (Toradol Im) 60 mg 1X ONCE 08/23/20 15:30 08/23/20 15:31 Methylprednisolone Sodium Succinate (SOLU-Medrol 125MG VIAL) 125 mg 1X ONCE 08/23/20 15:30 08/23/20 15:31 Allergies: Allergies: Allergies Coded Allergies Type Severity Reaction Last Updated Verified No Known Drug Allergies 01/01/18 No Physical Exam: PE: Constitutional: Well developed, well nourished, no acute distress, non-toxic appearance. [] HENT: Normocephalic, atraumatic, bilateral external ears normal, oropharynx moist, no oral exudates, nose normal. [] Eyes: PERRLA, EOMI, conjunctiva normal, no discharge. [] Neck: Normal range of motion, no tenderness, supple, no stridor. [] Cardiovascular:Heart rate regular rhythm, no murmur [] Lungs & Thorax: Bilateral breath sounds clear to auscultation [] Abdomen: Bowel sounds normal, soft, no tenderness, no masses, no pulsatile masses. [] Skin: Warm, dry, no erythema, no rash. [] Back: No tenderness, no CVA tenderness. [] Extremities: No tenderness, no cyanosis, no clubbing, ROM intact, no edema. Positive straight leg raises at approximately 30 degrees bilaterally Neurologic: Alert and oriented X 3, normal motor function, normal sensory function, no focal deficits noted. [] Psychologic: Flat affect, depressed mood, tearful Current Patient Data: Vital Signs: Vital Signs Date Time Temp Pulse Resp B/P (MAP) Pulse Ox O2 Delivery O2 Flow Rate FiO2 08/23/20 14:19 98.0 68 18 142/93 (109) 99 Room Air 98.0 EKG: EKG: [] Radiology/Procedures: Radiology/Procedures: [] Course & Med Decision Making: Course & Med Decision Making Pertinent Labs and Imaging studies reviewed. (See chart for details) This is a 45-year-old female patient presenting to the ED today complaining of bilateral LE pain and spasms for 2 days. Patient is also complaining of chronic low back pain. She is very tearful. She has no injuries, she has no cauda equina syndrome symptoms. We talked about things she can do to help with her pain considering most of it is chronic. I recommended she continue following up with the [facility]. Discharge to cyclobenzaprine and Medrol Dosepak. She somehow had an oxycodone today from a friend which I told her is not a good idea to take medicines from people. She also took a shot of vodka yesterday. Informed patient its not a [place] idea to ever take alcohol then take pain medicine Dragon Disclaimer: Kobe Disclaimer: This electronic medical record was generated, in whole or in part, using a voice recognition dictation system. Departure Departure Impression: Primary Impression: Bilateral sciatica Disposition: 01 DC HOME SELF CARE/HOMELESS Condition: STABLE Referrals: NO PCP (PCP) follow up with your doctor in 1 week Patient Instructions: Sciatica, [id number] Additional Instructions: You were evaluated in the emergency room for lower extremity pain. Please follow-up with the [facility]. Scripts Methylprednisolone (MEDROL) 4 Mg Tab.ds.pk 1 PKG PO UD, #1 PKG Prov: RYAN JACKSON [employer] 08/23/20 Cyclobenzaprine Hcl (CYCLOBENZAPRINE HCL) 10 Mg Tablet 1 TAB PO TID, #90 TAB Prov: MUTRYAN MCCABE [facility] [employer] 08/23/20 Cyclobenzaprine Hcl (CYCLOBENZAPRINE HCL) 10 Mg Tablet 1 TAB PO TID, #90 TAB Prov: RYAN J[facility]SON [facility] [employer] 08/23/20 Methylprednisolone (MEDROL) 4 Mg Tab.ds.pk 1 PKG PO UD, #1 PKG Prov: RYAN J[address] [facility] [employer] 08/23/20 MUTUNGRYAN Alfredo APRN Aug 23, 2020 15:42
== END 2020-08-23 16:20 | disposition home or self-care (01) ==
LOC: ER 14:17
DX: M54.41 Lumbago with sciatica, right side (principal); M54.42 Lumbago with sciatica, left side; R25.2 Cramp and spasm; M79.605 Pain in left leg; F41.9 Anxiety disorder, unspecified; I11.0 Hypertensive heart disease with heart failure; I50.9 Heart failure, unspecified; G89.29 Other chronic pain; F17.200 Nicotine dependence, unspecified, uncomplicated; F12.90 Cannabis use, unspecified, uncomplicated; Z87.442 Personal history of urinary calculi; Z98.890 Other specified postprocedural states
CPT/HCPCS: 96372; 99284; J1885; J2930